=== PATIENT | male | born 1970 | race Caucasian/White ===

== ENCOUNTER → 2016-06-16 | Outpatient (CLI) | payer MEDICARE, OTHER | END | disposition home or self-care (01) | LOC: MW.CHPS 09:45 | PROVIDERS: ATTEND Plastic Surgery | DX: L89.893 Pressure ulcer of other site, stage 3 (principal); L97.429 Non-pressure chronic ulcer of left heel and midfoot with unspecified severity | CPT/HCPCS: 20526; G0463; J3301 ==

== ENCOUNTER 2016-07-22 06:43 | Day surgery (SDC) | payer MEDICARE, OTHER ==
[2016-07-22] MEDS ORDERED: Bupivacaine 0.25%/EPINEPHrine 1:200,000 10 ML SDV INJECT ONE (07:00)
[2016-07-22] MEDS ORDERED: Clindamycin Phosphate in D5W 600 MG in Premix Bag 1 BAG IV ONE ×2 (07:00)
[2016-07-22] MEDS ORDERED: Lactated Ringers 1,000 ML IV SCH (07:00)
[2016-07-22] MEDS ORDERED: Rocuronium 10 MG/ML 10 ML Syringe ONE (07:15)
[2016-07-22] MEDS ORDERED: Neostigmine Methylsulfate 1 MG/ML 5 ML Syringe ONE (07:15)
[2016-07-22] MEDS ORDERED: Propofol 200 MG/20 ML SDV ONE (07:15)
[2016-07-22] MEDS ORDERED: Lidocaine 2% 5 ML SDV ONE (07:15)
[2016-07-22] MEDS ORDERED: fentaNYL 250 MCG/5 ML SDV ONE (07:15)
[2016-07-22] MEDS ORDERED: Midazolam 1 MG/ML 2 ML SDV ONE (07:15)
[2016-07-22] MEDS ORDERED: Ondansetron 4 MG/2 ML SDV ONE (07:15)
[2016-07-22] MEDS ORDERED: Bupivacaine 0.25%/EPINEPHrine 1:200,000 10 ML SDV ONE (07:18)
[2016-07-22] MEDS ORDERED: Nitroglycerin/D5W 25 MG/250 ML BOTTLE ONE (07:24)
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
[2016-07-22] MEDS ORDERED: Acetaminophen/HYDROcodone 325-5 MG Tab PO PRN (08:00)
[2016-07-22] MEDS ORDERED: methylPREDNISolone Sodium Succinate 40 MG/1 ML SDV ONE (08:25)
[2016-07-22] MEDS ORDERED: Phenylephrine/Normal Saline 100 MCG/ML 10 ML Syringe ONE (08:25)
[2016-07-22] MEDS ORDERED: Hydrocortisone Sodium Succinate 100 MG/2 ML SDV ONE (08:27)
[2016-07-22] MEDS ORDERED: fentaNYL 100 MCG/2 ML SDV IVPUSH PRN (08:32)
[2016-07-22] MEDS ORDERED: Nitroglycerin/D5W 25 MG/250 ML BOTTLE IV SCH (08:45)
--- NOTE | 2016-07-22 10:36 | PCM.POSTAN ---
POST ANESTHESIA ASSESSMENT - MENTAL STATUS Mental Status: alert, oriented - VITAL SIGNS Pulse Rate: 83 SaO2: 94 Resp Rate: 10 Blood Pressure: 100/54 - RESPIRATORY Respiratory Status: respiratory rate WNL, airway patent, O2 saturation stable, supplemental oxygen (per nc) - CARDIOVASCULAR CV Status: pulse rate WNL, blood pressure stable - GASTROINTESTINAL GI Status: no symptoms - PAIN Pain Score: 0 - POST OP HYDRATION Hydration Status: adequate & stable - OBSERVATIONS Free Text/Narrative:: VSS. No elevation in BP. Pt has no complaints.
--- NOTE | 2016-07-22 11:25 | PCM48HPAN ---
Post Anesthesia Note - EVALUATION WITHIN 48HRS OF ANESTHETIC Vital Signs in Normal Range: Yes Patient Participated in Evaluation: Yes Respiratory Function Stable: Yes Airway Patent: Yes Cardiovascular Function Stable: Yes Hydration Status Stable: Yes Pain Control Satisfactory: Yes Nausea and Vomiting Control Satisfactory: Yes Mental Status Recovered: Yes - COMMENTS/OBSERVATIONS Free Text/Narrative:: Pt doing well. BP stable. Pt has no complaints.
[2016-07-22 11:57] VITALS: BP 106/58
--- NOTE | 2016-07-27 08:14 | PCM.OPNOTE ---
- General Post-Op/Procedure Note Date of Surgery/Procedure: 07/22/16 Operative Procedure(s): amputation of 3rd and 4th toes on the right for osteomyelitis, debridement of skin, subcutaneous tissue and bone of right lower leg - 15cm total length withpartial fibulectomy Pre Op Diagnosis: osteomyelitis of the right 3rd and 4th toes and distal fibula with open ulcers. Anesthesia Technique: General ET tube Primary Surgeon: Loretta Merrill [place] Lead: Abiola Conway Complications: None Condition: Good
--- NOTE | 2016-07-27 13:09 | OR ---
SURGEON: GARTH SALAS MD DATE OF PROCEDURE: 07/22/2016 PREOPERATIVE DIAGNOSIS: Right fibula, and third and fourth toe osteomyelitis. POSTOPERATIVE DIAGNOSIS: Right fibula, and 3rd and 4th toe osteomyelitis. PROCEDURE: 1. Amputation of right 3rd toe. 2. Amputation of right 4th toe. 3. Debridement of skin, subcutaneous tissue, and bone with partial fibulectomy of the right lower leg, 15 cm total length. INDICATIONS: Mr. Churchill is a 46-year-old gentleman, who unfortunately has been dealing with longstanding chronic wounds on his right lateral leg and now 3rd and 4th toes. He has developed a significant flare up of cellulitis and it was discussed that we would need an MRI. The MRI was somewhat obscured due to the lack of bone saturation windows being appropriately imaged; however, our radiologist was able to confirm, and there is likely osteomyelitis of the distal fibula and 3rd and 4th toes. This is very consistent with his clinical picture. We will take bone biopsies today, and risks and benefits of removal of the fibula and 3rd and 4th toes were discussed with him. We did recommend a [id number] amputation. However, the patient would like to keep as much of his normal structures as possible. He would like to proceed with the above-mentioned procedure. Risks and benefits were thoroughly discussed, and he was in agreement to proceed. PROCEDURE IN DETAIL: After informed consent was obtained and placed on the chart, the patient was brought to the operating theater and laid in the supine position. After adequate general anesthetic was obtained, the area was prepped and draped in normal fashion. Time-out was completed to confirm side and site. Attention was then paid to the lateral wounds. These were excised in elliptical fashion and a small extension was made in between to allow exposure of the fibula. The area under the ulcers was quite soft on the bone indicating involvement with osteomyelitis. A bone biopsy was taken and sent for pathology and microbiology. Once adequately sent, attention was then paid to copious irrigation and the fibula was exposed. A bone saw was used to transect the fibula proximal to the involved site, and the distal fibula was removed. The joint was repaired and closed to prevent leakage of joint fluid into the potential space. Once copiously irrigated, attention was then paid to closure of the skin using horizontal mattress sutures, sparse zion. Once this was closed, attention was then paid to the feet. Attention was paid to the right 3rd and 4th toe, and a fish mouth incision was made at the base of the phalanges and the bone was disarticulated at the metatarsal phalangeal joint. The cartilaginous cap was left in place over the metatarsal head in order to prevent seeding of the more proximal bone. This area was copiously irrigated. Meticulous hemostasis was obtained and traction neurectomies were performed. The skin was then closed with horizontal mattress stitches. The patient tolerated this well. The tourniquet was desufflated at the end the case. The wound was dressed with Xeroform, fluffs, and a Kerlix gauze dressing with a 4 inch Nacho wrap for compression. Significant care was taken during the case to prevent pressure on any pressure points for this patient. FOLLOWUP INSTRUCTIONS: The patient will see us in approximately 10 to 14 days or sooner if any problems, questions, or concerns. He will continue wound care as per usual on the left heel ulcer which is still present, but no signs of osteomyelitis underneath. We did not address this wound during our cares today. The patient also has excoriations on his right neck and these were also left intact and not disrupted today. The presence of both were clearly documented in the medical record prior to the patient coming back for surgery. MINO / GENESIS /[id number]
== END 2016-07-22 12:00 | disposition home or self-care (01) ==
LOC: MW.SDS 06:43
PROVIDERS: ATTEND Plastic Surgery
DX: L97.519 Non-pressure chronic ulcer of other part of right foot with unspecified severity (principal); M86.8X7 Other osteomyelitis, ankle and foot; I96 Gangrene, not elsewhere classified; I95.9 Hypotension, unspecified; F17.200 Nicotine dependence, unspecified, uncomplicated; Z88.8 Allergy status to other drugs, medicaments and biological substances; Z79.899 Other long term (current) drug therapy; Z93.3 Colostomy status
CPT/HCPCS: 11044; 28820; 87070; 87077; 87186; 88304; 88311; J1720; J2250; J2405; J3010; J7120; 01480; J2704; J2710; J2920

== ENCOUNTER → 2016-09-03 | Outpatient (CLI) | payer MEDICARE, OTHER | LOC: MW.CHPS 15:30 | PROVIDERS: ATTEND Plastic Surgery | DX: G56.03 Carpal tunnel syndrome, bilateral upper limbs (principal); L89.893 Pressure ulcer of other site, stage 3; M86.671 Other chronic osteomyelitis, right ankle and foot; L97.422 Non-pressure chronic ulcer of left heel and midfoot with fat layer exposed | CPT/HCPCS: 20526; J3301 ==

== ENCOUNTER 2016-09-22 20:50 | Inpatient (IN) | payer MEDICARE, OTHER ==
[2016-09-22] MEDS: Silver Sulfadiazine 1% Crm 50 GM Tube TOP SCH (22:00)
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
[2016-09-22] MEDS ORDERED: SUMAtriptan 50 MG Tab PO PRN (23:35)
[2016-09-22] MEDS ORDERED: SUMAtriptan 6 MG/0.5 ML SDV SUBCUT PRN (23:35)
[2016-09-22] MEDS ORDERED: Pantoprazole 40 MG Tab.CR PO PRN (23:35)
[2016-09-22] MEDS ORDERED: Fludrocortisone 0.1 MG Tab PO SCH (23:45)
[2016-09-23] MEDS: Gabapentin 300 MG Cap PO SCH ×5 (00:41→23:13)
[2016-09-23] MEDS: Methadone 10 MG Tab PO PRN ×2 (04:11→21:05)
[2016-09-23 05:05] LABS: CHLORIDE,CL 106 mmol/L (98-110); SODIUM,NA 142 mmol/L (136-146)
[2016-09-23] MEDS: Baclofen 10 MG Tab PO SCH ×3 (06:26→21:00)
[2016-09-23] MEDS: Oxybutynin 5 MG Tab PO SCH ×2 (08:57→20:57)
[2016-09-23] MEDS: DULoxetine 60 MG Cap PO SCH (08:57)
[2016-09-23] MEDS: Enoxaparin 40 MG/0.4 ML Syringe SUBCUT SCH (08:57)
[2016-09-23] MEDS: Methadone 10 MG Tab PO SCH ×3 (09:06→21:00)
[2016-09-23] MEDS: Silver Sulfadiazine 1% Crm 50 GM Tube TOP SCH ×2 (09:09→22:14)
[2016-09-23] MEDS ORDERED: Levofloxacin/Dextrose 5%-Water 750 MG in Premix Bag 1 BAG IV SCH (14:00)
--- NOTE | 2016-09-23 14:11 | MR ---
EXAMINATION: MRI of the right ankle with and without contrast HISTORY: Wound COMPARISON: No recent comparisons or radiographs. TECHNIQUE: Multiplanar and multisequence images obtained of the right ankle before and following the administration of 20 mL MultiHance. FINDINGS: There is a soft tissue defect noted along the lateral aspect of the ankle at the level of the talus. The distal fibula is surgically absent. The soft tissue defect demonstrates avid enhancem ent with likely an area of fluid tracking from the cutaneous surface to the tibiotalar joint. There is no evidence of intraosseous enhancement however there is synovial enhancement at the tibiotalar j oint and less so at the subtalar joint. The articular surfaces appear preserved. The Achilles tendon appears normal. The peroneus brevis and longus tendons appear intact. Remaining flexor and extensor tendons appear normal. There is no abnormal signal in the sinus tarsi. IMPRESSION: 1. Soft tissue defect along the lateral aspect of the ankle with likely a sinus tract extending to t he tibiotalar joint with underlying septic arthritis. 2. No definite evidence of osteomyelitis. 3. There is also mild enhancement of the subtalar synovium, this could be reactive however septic ar thritis is also not excluded. 4. Surgical absence of the distal fibula.
--- NOTE | 2016-09-23 14:11 | MR ---
EXAMINATION: MRI of the left foot with and without contrast HISTORY: Left heel ulcer COMPARISON: 07/14/2016 TECHNIQUE: Multiplanar and multisequence images obtained of the left foot before and following the a dministration of 20 mL MultiHance. FINDINGS: There is a large cutaneous ulcer involving the subcutaneous tissues overlying the calcaneu s which demonstrates moderate soft tissue enhancement. There is mild bone marrow enhancement within the adjacent calcaneus. There is also enhancement and edema within the anterior aspect of the talus, near the dome of the talus laterally, within the anterior process of the calcaneus, within several tarsal bones, and within the proximal metatarsals. There is enhancement throughout the plantar muscu lature. The tibiotalar and talofibular ligaments are not well characterized. Mild or subtle soft tis farzad edema is noted. IMPRESSION: 1. Large cutaneous ulcer overlying the calcaneus with adjacent cellulitis and likely underlying oste omyelitis within the posterior calcaneus. 2. There are multifocal scattered areas of bone marrow edema and enhancement throughout the left hin dfoot and midfoot. Osteomyelitis is not excluded. 3. Plantar fasciitis, infectious versus inflammatory.
--- NOTE | 2016-09-23 14:51 | US ---
ULTRASOUND EXAMINATION OF the left and right lower extremities WITH DOPPLER HISTORY: cool Extremities FINDINGS: Examination of the left and right legs were performed from the groin to the calf region. All visual ized segments including common femoral, proximal greater saphenous, superficial femoral, popliteal a nd calf veins appear patent with good compressibility and augmentation. There is no evidence of hawa p vein thrombosis. IMPRESSION: No evidence of a DVT bilaterally.
--- NOTE | 2016-09-23 15:57 | PCM.SN ---
- Free Text/Narrative Note: I was called about Geovanni and visited with him today. They are starting silvadene to the wounds. We discussed that much of our decision for care with revolve around the MRI results. Once these are back we will chat with him more about options. I do think it time to consider seriously BKA. We attempted to prevent this by debridement on the right and the wound did open up. Though it is healing in nicely, it continues to be a problem with dressing changes, etc. I would continue local wound cares and discuss the results. IV antibiotics should be started to get things under control and they are working on IV access. We will continue to follow and assist with decision making for him.
[2016-09-23] MEDS ORDERED: cefTRIAXone 2 GM in Premix Bag 1 BAG IV SCH (16:00)
--- NOTE | 2016-09-23 16:23 | PCM.PN ---
<Stanton Benavides - Last Filed: 09/23/16 16:24> - General Info Date of Service: 09/23/16 Admission Dx/Problem (Free Text): Left heel ulcer, wound to the lateral aspect of the right ankle. Subjective Update: patient is doing well this morning. He states that he has not been given his pain medication of methadone and would like to begin receiving this. He has no acute concerns this morning including chest pain, palpitations, shortness of breath, wheezing, cough, abdominal pain. Functional Status: Reports: pain controlled, tolerating diet, ambulating ( Patient is paraplegic.), urinating (Suprapubic catheter.) - Review of Systems General: Reports: No Symptoms HEENT: Reports: no symptoms Pulmonary: Reports: no symptoms Cardiovascular: Reports: No Symptoms Gastrointestinal: Reports: No symptoms Genitourinary: Reports: no symptoms Musculoskeletal: Reports: no symptoms Skin: Reports: no symptoms Neurological: Reports: No Symptoms Psychiatric: Reports: no symptoms - Patient Data Vitals - most recent: Last Vital Signs Temp 99.2 F 09/23/16 12:00 Pulse 62 09/23/16 12:00 Resp 18 09/23/16 12:00 BP 100/60 09/23/16 12:00 Pulse Ox 93 L 09/23/16 12:00 Weight - most recent: 104 kg I&O - last 24 hours: Intake & Output 09/23/16 09/23/16 09/23/16 06:59 14:59 22:59 Intake Total 100 150 Output Total 525 Balance -425 150 Lab Results last 24 hrs: Laboratory Results - last 24 hr 09/23/16 09/23/16 09/23/16 Range/Units 04:21 04:21 04:21 WBC 9.79 (4.0-11.0) K/uL RBC 4.17 L (4.50-5.90) M/uL Hgb 11.0 L (13.0-17.0) g/dL Hct 36.3 L (38.0-50.0) % MCV 87.1 (80.0-98.0) fL MCH 26.4 L (27.0-32.0) pg MCHC 30.3 L (31.0-37.0) g/dL RDW Std Deviation 50.8 (28.0-62.0) fl RDW Coeff of Emy 16 H (11.0-15.0) % Plt Count 292 (150-400) K/uL MPV 8.70 (7.40-12.00) fL Nucleated RBC % 0.0 /100WBC Nucleated RBCs # 0 K/uL INR 0.98 (0.86-1.11) APTT 29.9 (18.6-31.3) SEC Sodium 142 (136-146) mmol/L Potassium 4.3 (3.5-5.1) mmol/L Chloride 106 (98-110) mmol/L Carbon Dioxide 25 (21-31) mmol/L BUN 12 (6.0-23.0) mg/dL Creatinine 0.8 (0.6-1.5) mg/dL Est Cr Clr Drug Dosing 116.60 mL/min Estimated GFR (MDRD) > 60.0 ml/min Glucose 126 H (60-110) mg/dL Calcium 8.3 L (8.8-10.8) mg/dL Total Bilirubin 0.2 (0.1-1.5) mg/dL AST 17 (5-40) IU/L ALT 23 (8-54) IU/L Alkaline Phosphatase 110 (40-150) Total Protein 6.2 (6.0-8.0) g/dL Albumin 3.2 L (3.5-5.0) g/dL Globulin 3.0 (2.0-3.5) g/dL Albumin/Globulin Ratio 1.1 L (1.3-2.8) Med Orders - Current: Current Medications Amitriptyline HCl (Elavil) 150 mg PO BEDTIME [facility] Baclofen (Lioresal) 20 mg PO TID [facility] Last Admin: 09/23/16 13:38 Dose: 20 mg Duloxetine HCl (Cymbalta) 60 mg PO DAILY [facility] Last Admin: 09/23/16 08:57 Dose: 60 mg Enoxaparin Sodium (Lovenox) 40 mg SUBCUT DAILY [facility] Last Admin: 09/23/16 08:57 Dose: 40 mg Fludrocortisone Acetate (Florinef) 0.1 mg PO ASDIRECTED [facility] Gabapentin (Neurontin) 900 mg PO QID [facility] Last Admin: 09/23/16 13:38 Dose: 900 mg Ceftriaxone Sodium/Dextrose 2 (gm/ Premix) 50 mls @ 100 mls/hr IV Q24H [facility] Last Admin: 09/23/16 15:57 Dose: 100 mls/hr Vancomycin HCl 1,500 mg/ (Sodium Chloride) 500 mls @ 333.333 mls/hr IV Q8H [facility] Methadone HCl (Methadone) 10 mg PO TID PRN PRN Reason: Pain Last Admin: 09/23/16 04:11 Dose: 10 mg Methadone HCl (Methadone) 15 mg PO TID [facility] Last Admin: 09/23/16 13:39 Dose: 15 mg Oxybutynin Chloride (Oxybutynin) 5 mg PO BID [facility] Last Admin: 09/23/16 08:57 Dose: 5 mg Pantoprazole Sodium (Protonix) 40 mg PO DAILY PRN PRN Reason: Heartburn Silver Sulfadiazine (Silvadene 1% Cream 50 Gm) 0 gm TOP BID [facility] Last Admin: 09/23/16 09:09 Dose: 1 applic Sumatriptan Succinate (Imitrex) 100 mg PO Q2HR PRN PRN Reason: Headache/Pain Sumatriptan Succinate (Imitrex) 6 mg SUBCUT DAILY PRN PRN Reason: Acute Migraine Vancomycin HCl (Pharmacy To Dose - Vancomycin) 1 dose .XX ASDIRECTED [facility] Discontinued Medications Levofloxacin/Dextrose 750 mg/ (Premix) 150 mls @ 100 mls/hr IV Q24H [facility] Last Admin: 09/23/16 14:33 Dose: 100 mls/hr Vancomycin HCl 1,500 mg/ (Sodium Chloride) 500 mls @ 333.333 mls/hr IV Q8H [facility] Last Admin: 09/23/16 16:04 Dose: Not Given - Exam Quality Assessment: urine catheter (Suprapubic catheter), DVT prophylaxis (scd's , Lovenox), skin breakdown (Left heel, lateral aspect of right ankle.) General: alert, oriented, cooperative, no acute distress Lungs: Clear to auscultation, Normal respiratory effort Cardiovascular: Regular Rate, Regular Rhythm Abdomen: bowel sounds present, soft, no tenderness, no distension, other ( Colostomy bag present with no signs of infection.) (Male) Exam: Other (Suprapubic catheter in place with no signs of infection.) Extremities: other (Lower extremities bilaterally do have pressure reduction boots in place. Legs are wrapped with tensor bandages. I did not unwrap them today.) Peripheral Pulses: 2+: radial (L), radial (R) Skin: warm, dry, intact Wound/Incisions: dressing dry and intact, no drainage Neurological: no new focal deficit Psy/Mental Status: alert, normal affect, normal mood - Problem List & Annotations (1) Osteomyelitis of left foot SNOMED Code(s): 30097592 Code(s): M86.9 - OSTEOMYELITIS, UNSPECIFIED Status: Acute Current Visit: Yes (2) Cellulitis of foot SNOMED Code(s): 505258690 Code(s): L03.119 - CELLULITIS OF UNSPECIFIED PART OF LIMB Status: Acute Current Visit: No (3) Ulcer of foot SNOMED Code(s): 03064950 Code(s): L97.509 - NON-PRESSURE CHRONIC ULCER OTH PRT UNSP FOOT W UNSP SEVERITY Status: Chronic Priority: Medium Current Visit: No - Problem List Review Problem List Initiated/Reviewed/Updated: Yes - My Orders Last 24 Hours: My Active Orders 09/23/16 09:00 Methadone 15 mg PO TID 09/23/16 14:00 Vancomycin Pharmacy to Dose [Pharmacy to Dose - Vancomycin] 1 dose .XX ASDIRECTED 09/23/16 14:10 CULTURE WOUND [RM] Routine - Plan Plan:: 46-year-old male admitted with left foot ulcer and lateral right ankle wound status post right ankle surgery for osteomyelitis in July 2016. #1. Left heel ulcer/healing wound of lateral right ankle status post right ankle surgery for osteomyelitis in July 2016: -MRI of the left foot shows cellulitis of the left heel as well as a likely underlying osteomyelitis within the posterior calcaneus. There are multifocal scattered areas of bone marrow edema and enhancement throughout the left hindfoot and midfoot. Osteomyelitis cannot be excluded. Plantar fasciitis with infectious versus inflammatory pathogenesis. -MRI of the right ankle shows a sinus tract extending to the tibiotalar joint with underlying septic arthritis. No definitive evidence of osteomyelitis. There is also mild enhancement of the subpatellar synovium which could be reactive but septic arthritis is not excluded. -Patient has been started on vancomycin 1500 mg IV every 8 hours as well as Rocephin 2 g IV daily. -Dr. Loretta Merrill, plastic surgeon, has been consulted and has agreed to see the patient. She is familiar with the patient. There is a possibility of a below the knee amputation given the results of the MRI. We will follow her recommendations. -Wounds of the lower extremities are being dressed with Silvadene. -Patient is afebrile with normal respiratory rate and heart rate. White blood cell count is within normal limits. #2. Paraplegia: -All home medications have been resumed. -Patient receiving Lovenox 40 mg subcutaneously twice a day for DVT prophylaxis. <Crow Bryant O - Last Filed: 09/23/16 21:48> - Patient Data Vitals - most recent: Last Vital Signs Temp 36.2 C 09/23/16 20:00 Pulse 73 09/23/16 20:00 Resp 18 09/23/16 20:00 BP 120/58 L 09/23/16 20:00 Pulse Ox 96 09/23/16 20:00 I&O - last 24 hours: Intake & Output 09/23/16 09/23/16 09/23/16 06:59 14:59 22:59 Intake Total 100 1500 Output Total 525 800 Balance -425 700 Lab Results last 24 hrs: Laboratory Results - last 24 hr 09/23/16 09/23/16 09/23/16 Range/Units 04:21 04:21 04:21 WBC 9.79 (4.0-11.0) K/uL RBC 4.17 L (4.50-5.90) M/uL Hgb 11.0 L (13.0-17.0) g/dL Hct 36.3 L (38.0-50.0) % MCV 87.1 (80.0-98.0) fL MCH 26.4 L (27.0-32.0) pg MCHC 30.3 L (31.0-37.0) g/dL RDW Std Deviation 50.8 (28.0-62.0) fl RDW Coeff of Emy 16 H (11.0-15.0) % Plt Count 292 (150-400) K/uL MPV 8.70 (7.40-12.00) fL Nucleated RBC % 0.0 /100WBC Nucleated RBCs # 0 K/uL INR 0.98 (0.86-1.11) APTT 29.9 (18.6-31.3) SEC Sodium 142 (136-146) mmol/L Potassium 4.3 (3.5-5.1) mmol/L Chloride 106 (98-110) mmol/L Carbon Dioxide 25 (21-31) mmol/L BUN 12 (6.0-23.0) mg/dL Creatinine 0.8 (0.6-1.5) mg/dL Est Cr Clr Drug Dosing 116.60 mL/min Estimated GFR (MDRD) > 60.0 ml/min Glucose 126 H (60-110) mg/dL Calcium 8.3 L (8.8-10.8) mg/dL Total Bilirubin 0.2 (0.1-1.5) mg/dL AST 17 (5-40) IU/L ALT 23 (8-54) IU/L Alkaline Phosphatase 110 (40-150) Total Protein 6.2 (6.0-8.0) g/dL Albumin 3.2 L (3.5-5.0) g/dL Globulin 3.0 (2.0-3.5) g/dL Albumin/Globulin Ratio 1.1 L (1.3-2.8) Med Orders - Current: Current Medications Amitriptyline HCl (Elavil) 150 mg PO BEDTIME [facility] Last Admin: 09/23/16 20:57 Dose: 150 mg Baclofen (Lioresal) 20 mg PO TID [facility] Last Admin: 09/23/16 21:00 Dose: 20 mg Duloxetine HCl (Cymbalta) 60 mg PO DAILY [facility] Last Admin: 09/23/16 08:57 Dose: 60 mg Enoxaparin Sodium (Lovenox) 40 mg SUBCUT DAILY [facility] Last Admin: 09/23/16 08:57 Dose: 40 mg Fludrocortisone Acetate (Florinef) 0.1 mg PO ASDIRECTED [facility] Gabapentin (Neurontin) 900 mg PO QID [facility] Last Admin: 09/23/16 17:08 Dose: 900 mg Ceftriaxone Sodium/Dextrose 2 (gm/ Premix) 50 mls @ 100 mls/hr IV Q24H [facility] Last Admin: 09/23/16 15:57 Dose: 100 mls/hr Vancomycin HCl 1,500 mg/ (Sodium Chloride) 500 mls @ 333.333 mls/hr IV Q8H [facility] Last Admin: 09/23/16 17:02 Dose: 333.333 mls/hr Methadone HCl (Methadone) 10 mg PO TID PRN PRN Reason: Pain Last Admin: 09/23/16 21:05 Dose: 10 mg Methadone HCl (Methadone) 15 mg PO TID [facility] Last Admin: 09/23/16 21:00 Dose: 15 mg Oxybutynin Chloride (Oxybutynin) 5 mg PO BID [facility] Last Admin: 09/23/16 20:57 Dose: 5 mg Pantoprazole Sodium (Protonix) 40 mg PO DAILY PRN PRN Reason: Heartburn Silver Sulfadiazine (Silvadene 1% Cream 50 Gm) 0 gm TOP BID [facility] Last Admin: 09/23/16 09:09 Dose: 1 applic Sumatriptan Succinate (Imitrex) 100 mg PO Q2HR PRN PRN Reason: Headache/Pain Sumatriptan Succinate (Imitrex) 6 mg SUBCUT DAILY PRN PRN Reason: Acute Migraine Vancomycin HCl (Pharmacy To Dose - Vancomycin) 1 dose .XX ASDIRECTED [facility] Discontinued Medications Levofloxacin/Dextrose 750 mg/ (Premix) 150 mls @ 100 mls/hr IV Q24H [facility] Last Admin: 09/23/16 14:33 Dose: 100 mls/hr Vancomycin HCl 1,500 mg/ (Sodium Chloride) 500 mls @ 333.333 mls/hr IV Q8H [facility] Last Admin: 09/23/16 16:04 Dose: Not Given - My Orders Last 24 Hours: My Active Orders 09/22/16 21:45 Silver Sulfadiazine [Silvadene 1% Cream 50 GM] See Dose Instructions TOP BID 09/22/16 22:32 Air Mattress [Pressure Reduction Mattress] [OM.PC] Routine 09/22/16 22:33 Resuscitation Status Routine 09/22/16 22:43 Patient Status [ADT] Routine Oxygen Therapy [RC] PRN VTE/DVT Education [RC] PER UNIT ROUTINE Vital Signs [RC] Q4H 09/22/16 22:45 Consult to Physician [CONS] Routine 09/22/16 22:48 Notify Provider Consults [RC] ASDIRECTED 09/22/16 23:35 Methadone 10 mg PO TID PRN Pantoprazole [ProTONIX] 40 mg PO DAILY PRN SUMAtriptan [Imitrex] 100 mg PO Q2HR PRN SUMAtriptan [Imitrex] 6 mg SUBCUT DAILY PRN 09/22/16 23:45 Fludrocortisone [Florinef] 0.1 mg PO ASDIRECTED 09/23/16 00:00 Gabapentin [Neurontin] 900 mg PO QID 09/23/16 06:00 Baclofen [Lioresal] 20 mg PO TID 09/23/16 09:00 DULoxetine [Cymbalta] 60 mg PO DAILY Enoxaparin [Lovenox] 40 mg SUBCUT DAILY Oxybutynin 5 mg PO BID 09/23/16 16:00 cefTRIAXone [Rocephin in Dextrose,Iso-Osm 2 GM/50 ML] 2 gm Premix Bag 1 bag IV Q24H 09/23/16 17:00 Vancomycin 1,500 mg Sodium Chloride 0.9% [Normal Saline] 500 ml IV Q8H 09/23/16 21:00 Amitriptyline [Elavil] 150 mg PO BEDTIME 09/24/16 16:30 VANCOMYCIN TROUGH [CHEM] Routine - Plan Plan:: I was present with the resident during the history and exam. I discussed the case with the resident and agree with the findings and plan as documented in the resident's note.
[2016-09-23] MEDS ORDERED: Amitriptyline 25 MG Tab PO SCH (21:00)
[2016-09-24 05:07] LABS: CHLORIDE,CL 108 mmol/L (98-110); SODIUM,NA 141 mmol/L (136-146)
[2016-09-24] MEDS: Methadone 10 MG Tab PO SCH (05:51)
[2016-09-24] MEDS: Gabapentin 300 MG Cap PO SCH ×2 (05:52→10:59)
[2016-09-24] MEDS: Baclofen 10 MG Tab PO SCH (05:52)
[2016-09-24] MEDS: Silver Sulfadiazine 1% Crm 50 GM Tube TOP SCH (08:10)
[2016-09-24] MEDS: DULoxetine 60 MG Cap PO SCH (08:11)
[2016-09-24] MEDS: Oxybutynin 5 MG Tab PO SCH (08:11)
[2016-09-24] MEDS: Enoxaparin 40 MG/0.4 ML Syringe SUBCUT SCH (08:11)
[2016-09-24 09:15] VITALS: BP 126/56
[2016-09-24] MEDS ORDERED: Magnesium Hydroxide 400 MG/5 ML Susp 30 ML Cup PO ONE (10:01)
[2016-09-24] MEDS ORDERED: Magnesium Citrate Solution 296 ML Bottle PO ONE (10:02)
--- NOTE | 2016-09-24 10:23 | PCM.CONSN ---
- General Info Date of Service: 09/24/16 Admission Dx/Problem (Free Text): Left heel ulcer, wound to the lateral aspect of the right ankle s/p debridement of fibula for osteomyelitis. - Patient Data Vitals - most recent: Last Vital Signs Temp 97.9 F 09/24/16 08:00 Pulse 74 09/24/16 08:00 Resp 16 09/24/16 08:00 BP 126/56 L 09/24/16 08:00 Pulse Ox 94 L 09/24/16 08:00 Weight - most recent: 229 lb 4.492 oz I&O - last 24 hours: Intake & Output 09/23/16 09/24/16 09/24/16 23:59 07:59 15:59 Intake Total 1350 1300 Output Total 800 2550 Balance 550 -1250 Lab Results last 24 hrs: Laboratory Results - last 24 hr 09/24/16 09/24/16 09/24/16 Range/Units 04:20 04:20 04:20 WBC 7.47 (4.0-11.0) K/uL RBC 4.07 L (4.50-5.90) M/uL Hgb 10.9 L (13.0-17.0) g/dL Hct 35.6 L (38.0-50.0) % MCV 87.5 (80.0-98.0) fL MCH 26.8 L (27.0-32.0) pg MCHC 30.6 L (31.0-37.0) g/dL RDW Std Deviation 50.9 (28.0-62.0) fl RDW Coeff of Emy 16 H (11.0-15.0) % Plt Count 269 (150-400) K/uL MPV 8.70 (7.40-12.00) fL Neut % (Auto) 58.9 (48.0-80.0) % Lymph % (Auto) 28.2 (16.0-40.0) % [place] % (Auto) 8.2 (0.0-15.0) % Eos % (Auto) 4.6 (0.0-7.0) % Baso % (Auto) 0.1 (0.0-1.5) % Neut # (Auto) 4.4 (1.4-5.7) K/uL Lymph # (Auto) 2.1 (0.6-2.4) K/uL [place] # (Auto) 0.6 (0.0-0.8) K/uL Eos # (Auto) 0.3 (0.0-0.7) K/uL Baso # (Auto) 0.0 (0.0-0.1) K/uL Nucleated RBC % 0.0 /100WBC Nucleated RBCs # 0 K/uL Sodium 141 (136-146) mmol/L Potassium 4.6 (3.5-5.1) mmol/L Chloride 108 (98-110) mmol/L Carbon Dioxide 25 (21-31) mmol/L BUN 11 (6.0-23.0) mg/dL Creatinine 0.7 (0.6-1.5) mg/dL Est Cr Clr Drug Dosing 133.25 mL/min Estimated GFR (MDRD) > 60.0 ml/min Glucose 114 H (60-110) mg/dL Hemoglobin A1c 6.1 H (0.0-6.0) % Calcium 8.5 L (8.8-10.8) mg/dL Med Orders - Current: Current Medications Amitriptyline HCl (Elavil) 150 mg PO BEDTIME [facility] OF [facility] Last Admin: 09/23/16 20:57 Dose: 150 mg Baclofen (Lioresal) 20 mg PO TID [facility] Last Admin: 09/24/16 05:52 Dose: 20 mg Duloxetine HCl (Cymbalta) 60 mg PO DAILY [facility] Last Admin: 09/24/16 08:11 Dose: 60 mg Enoxaparin Sodium (Lovenox) 40 mg SUBCUT DAILY [facility] Last Admin: 09/24/16 08:11 Dose: 40 mg Fludrocortisone Acetate (Florinef) 0.1 mg PO ASDIRECTED ON LICENSE OF [facility] Gabapentin (Neurontin) 900 mg PO QID [facility] Last Admin: 09/24/16 05:52 Dose: 900 mg Ceftriaxone Sodium/Dextrose 2 (gm/ Premix) 50 mls @ 100 mls/hr IV Q24H [facility] Last Admin: 09/23/16 15:57 Dose: 100 mls/hr Vancomycin HCl 1,500 mg/ (Sodium Chloride) 500 mls @ 333.333 mls/hr IV Q8H [facility] Last Admin: 09/24/16 08:11 Dose: 333.333 mls/hr Methadone HCl (Methadone) 10 mg PO TID PRN PRN Reason: Pain Last Admin: 09/23/16 21:05 Dose: 10 mg Methadone HCl (Methadone) 15 mg PO TID [facility] Last Admin: 09/24/16 05:51 Dose: 15 mg Oxybutynin Chloride (Oxybutynin) 5 mg PO BID [facility] Last Admin: 09/24/16 08:11 Dose: 5 mg Pantoprazole Sodium (Protonix) 40 mg PO DAILY PRN PRN Reason: Heartburn Silver Sulfadiazine (Silvadene 1% Cream 50 Gm) 0 gm TOP BID [facility] Last Admin: 09/24/16 08:10 Dose: 1 applic Sumatriptan Succinate (Imitrex) 100 mg PO Q2HR PRN PRN Reason: Headache/Pain Sumatriptan Succinate (Imitrex) 6 mg SUBCUT DAILY PRN PRN Reason: Acute Migraine Vancomycin HCl (Pharmacy To Dose - Vancomycin) 1 dose .XX ASDIRECTED ON LICENSE OF [facility] Discontinued Medications Levofloxacin/Dextrose 750 mg/ (Premix) 150 mls @ 100 mls/hr IV Q24H [facility] Last Admin: 09/23/16 14:33 Dose: 100 mls/hr Vancomycin HCl 1,500 mg/ (Sodium Chloride) 500 mls @ 333.333 mls/hr IV Q8H [facility] Last Admin: 09/23/16 16:04 Dose: Not Given Magnesium Citrate (Citrate Of Magnesia) 195 ml PO ONETIME ONE Stop: 09/24/16 10:03 Magnesium Hydroxide (Milk Of Magnesia) 30 ml PO ONETIME ONE Stop: 09/24/16 10:02 Consult PN Assessment/Plan Procedures: Procedures AMPUTATION OF TOE (07/22/16) APPLICATION OF PASTE BOOT (07/08/16) ASSAY OF CK (CPK) (11/19/14) C-REACTIVE PROTEIN (01/08/16) CARPAL TUNNEL SURGERY (06/12/15) CHANGE OF BLADDER TUBE (02/18/15) CHEMODENERV TRUNK MUSC 1-5 (08/01/15) CHEST X-RAY 2VW FRONTAL&LATL (12/23/15) CLOSTRIDIUM AG IA (05/31/15) COLOSTOMY (07/02/15) COMPLETE CBC AUTOMATED (10/05/13) COMPLETE CBC W/AUTO DIFF WBC (01/08/16) COMPREHEN METABOLIC PANEL (11/19/14) CT ABD & PELV W/CONTRAST (11/19/14) CT HEAD/BRAIN W/O DYE (11/19/14) CULTURE AEROBIC IDENTIFY (07/22/16) CULTURE OTHR SPECIMN AEROBIC (07/22/16) BROOK BONE 20 SQ CM/< (07/22/16) DECALCIFY TISSUE (07/22/16) DRAIN BL W/CATH INSERTION (01/14/15) ELECTROCARDIOGRAM TRACING (08/21/14) EMERGENCY DEPT VISIT (11/19/14) HYDRATE IV INFUSION ADD-ON (01/14/15) INJECT TRIGGER POINTS 3/> (12/30/15) METABOLIC PANEL TOTAL CA (07/02/15) MICROBE SUSCEPTIBLE ALE (07/22/16) MRI JOINT LWR EXTR W/O&W/DYE (07/14/16) MRI LWR EXTREMITY W/O&W/DYE (07/14/16) NASAL ENDOSCOPY DX (08/01/15) NEG PRESS WOUND TX </=50 CM (05/21/16) OFFICE/OUTPATIENT VISIT EST (08/20/15) OFFICE/OUTPATIENT VISIT EST (08/21/14) OFFICE/OUTPATIENT VISIT EST (08/06/14) OFFICE/OUTPATIENT VISIT NEW (06/11/15) PROTHROMBIN TIME (08/21/14) PT EVALUATION (09/20/15) PT RE-EVALUATION (11/20/15) RBC SED RATE AUTOMATED (01/08/16) RMVL DEVITAL TIS 20 CM/< (06/22/16) ROUTINE VENIPUNCTURE (01/08/16) STOOL CULTR AEROBIC BACT EA (05/31/15) THER INJECTION CARP TUNNEL (06/16/16) THER/PROPH/DIAG INJ IV PUSH (11/19/14) THER/PROPH/DIAG INJ SC/IM (12/23/15) THER/PROPH/DIAG IV INF INIT (01/14/15) THROMBOPLASTIN TIME PARTIAL (08/21/14) TISSUE EXAM BY PATHOLOGIST (07/22/16) TISSUE EXAM BY PATHOLOGIST (07/04/14) TX/PRO/DX INJ NEW DRUG ADDON (11/19/14) URINALYSIS AUTO W/SCOPE (08/21/14) URINE BACTERIA CULTURE (08/21/14) WOUND(S) CARE NON-SELECTIVE (01/20/16) X-RAY EXAM OF HEEL (01/08/16)
--- NOTE | 2016-09-24 10:24 | PCM.SN ---
- Free Text/Narrative Note: We have a thorough discussion with the patient again about the likely need for amputation. He is still adamant to avoid this. Previously with the fibula osteo, we opted for removal of the affected bone and hopeful wound healing. He has also had toe amputations for gangrene and osteo here as well. During that care, we had a gerardo conversation about the need for amputation. He declined. The wound opened but has been healing in nicely. He has been on augmentin, which both the E coli and entero were sensitive too. Because we removed the osteomyelitis portions, we opted for oral antibiotics and he did well with this for 6 weeks. The left heel is now with an ulcer and it has become infected. Foul odor, with soft eschar. The MRI show osteomyelitis here. It shows fluid in the right ankle joint, but this is likely postoperative changes rather than actual infection given the timeframe and lack of infectious findings on this side. The fibular potion of the joint is no longer present. Radiology read as septic arthritis. We discussed frankly his situation and the amount of time he is spending dealing with these wounds. I do think he would be much more functional with amputations, at least on the left. He is considering this, but in the meantime, we will deal with the current infection. Cultures are pending and he will continue local wound cares. We will coordinate with the ID physician in [place] and ortho or vascular there for another opinion. My recommendation is still amputation. Discussed with Dr Clemente and they are coordinating outpatient follow up with PO antibiotics until that time. Continue wound cares.
--- NOTE | 2016-09-24 11:17 | PCM.DCSUM1 ---
<Stanton Benavides - Last Filed: 09/24/16 11:18> Discharge Summary - Hospital Course Free Text/Narrative:: Admission diagnoses: #1. Worsening ulcer of the left heel #2. Paraplegia Discharge diagnoses: #1 osteomyelitis of left calcaneus with overlying ulcer of left heel #2. Paraplegia 46-year-old paraplegic male was admitted with a worsening ulcer of the left heel. Patient recently underwent a right ankle surgery to remove part of his fibula secondary to osteomyelitis. MRI of the left foot showed likely osteomyelitis to the posterior aspect of the calcaneus and multifocal scattered areas of bone marrow edema and enhancement throughout the left hindfoot and midfoot with osteomyelitis not being excluded. Right ankle MRI shows a sinus tract extending to the tibiotalar joint with underlying septic arthritis. No evidence of osteomyelitis. Dr. Kady Merrill who performed the patient's right ankle surgery was consulted and did see the patient. She has recommended that the patient receive a below the knee amputation on the left side. The patient would like to get a second opinion and Dr. Merrill suggested that the patient be seen in either [place] or [place]. During admission, the patient was started on IV vancomycin and Rocephin. Wound culture was obtained and pending at the time of discharge. Previous wound and tissue cultures grew out Pseudomonas, staph aureus, enterococcus faecalis, Escherichia coli. The left heel ulcer was dressed with Silvadene daily. The patient was afebrile with other vital signs being stable. White blood cell count was normal. He was tolerating oral intake, voiding appropriately with no complaints of chest pain, palpitations, shortness of breath, wheezing, cough. There was a thought about having the patient get a PICC line as an outpatient with IV antibiotics initiated. I did speak with Dr. Crump, infectious disease , from [place], [place] who suggested that the patient be discharged on oral antibiotics and followup with him within one week secondary to the polymicrobial cultures that were obtained from previous tissue and wound samples. The patient also spoke on the phone with the [facility] from [place], [place] and they stated that they will be in touch with him within the next week or 2 to set up an appointment for further assessment of his lower extremity wounds. - Discharge Data Discharge Date: 09/24/16 Discharge Disposition: Home, Self-Care 01 Condition: Good - Discharge Diagnosis/Problem(s) (1) Osteomyelitis of left foot SNOMED Code(s): 46621729 ICD Code: M86.9 - OSTEOMYELITIS, UNSPECIFIED Status: Acute (2) Cellulitis of foot SNOMED Code(s): 110175415 ICD Code: L03.119 - CELLULITIS OF UNSPECIFIED PART OF LIMB Status: Acute (3) Ulcer of foot SNOMED Code(s): 00491414 ICD Code: L97.509 - NON-PRESSURE CHRONIC ULCER OTH PRT UNSP FOOT W UNSP SEVERITY Status: Chronic Priority: Medium - Patient Summary/Data Consults: Consultations 09/22/16 22:45 Consult to Physician [CONS] Routine - Patient Instructions Diet: Usual Diet as Tolerated Activity: As Tolerated Driving: May Drive Today Showering/Bathing: May Shower Notify Provider of: Fever, Increased Pain, Nausea and/or Vomiting - Discharge Plan Prescriptions/Med Rec: Levofloxacin [Levaquin] 750 mg PO DAILY #14 tablet Linezolid 600 mg PO BID #30 tablet Home Medications: Home Meds Baclofen 20 mg PO TID 09/06/13 [History] Multivitamin [Multi-Vitamin Daily] 1 tab PO DAILY 09/06/13 [History] SUMAtriptan Succinate [Imitrex] 100 mg PO Q2HR PRN 06/10/15 [History] SUMAtriptan Succinate [Sumatriptan Succinate] 6 mg SUBCUT DAILY PRN 06/10/15 [ History] Cranberry Extract/Vit C [Azo Cranberry Softgel] 2 each PO ASDIRECTED 07/02/15 [ History] DULoxetine [Cymbalta] 60 mg PO DAILY 07/02/15 [History] Gabapentin [Neurontin] 900 mg PO QID 07/02/15 [History] Oxybutynin 5 mg PO BID 07/02/15 [History] Fludrocortisone [Florinef] 0.1 mg PO ASDIRECTED 07/17/16 [History] Hydrocolloid Dressing [Duoderm CGF] 1 dressing TRDERM DAILY 07/17/16 [History] Varenicline Tartrate [Chantix] 1 tab PO BID 07/17/16 [History] Acetaminophen/HYDROcodone [[place] 325-5 MG] 1 tab PO Q4H PRN #30 tablet 07/22/16 [Rx] Amitriptyline HCl 150 mg PO BEDTIME 09/22/16 [History] Methadone HCl [Dolophine] 10 mg PO TID PRN 09/22/16 [History] Methadone HCl [Dolophine] 15 mg PO TID 09/22/16 [History] Pantoprazole Sodium 40 mg PO DAILY PRN 09/22/16 [History] Silver/Foam Bandage [Aquacel Ag Foam 5"X5" Dressing] 3 pad IDERM DAILY 09/22/16 [History] Levofloxacin [Levaquin] 750 mg PO DAILY #14 tablet 09/24/16 [Rx] Linezolid 600 mg PO BID #30 tablet 09/24/16 [Rx] Patient Handouts: Bone and Joint Infections, Adult, Linezolid tablets, Levofloxacin tablets Referrals: [facility] [Outside] Samir Cash MD [Primary Care Provider] - 10/07/16 10:00 am Devonte Crump MD [Ordering Only Provider] - 09/30/16 1:00 pm - Discharge Summary/Plan Comment DC Time >30 min.: No Discharge Summary/Plan Comment: Admission diagnoses: #1. Worsening ulcer of the left heel #2. Paraplegia Discharge diagnoses: #1 osteomyelitis of left calcaneus with overlying ulcer of left heel #2. Paraplegia 46-year-old paraplegic male was admitted with a worsening ulcer of the left heel. Patient recently underwent a right ankle surgery to remove part of his fibula secondary to osteomyelitis. MRI of the left foot showed likely osteomyelitis to the posterior aspect of the calcaneus and multifocal scattered areas of bone marrow edema and enhancement throughout the left hindfoot and midfoot with osteomyelitis not being excluded. Right ankle MRI shows a sinus tract extending to the tibiotalar joint with underlying septic arthritis. No evidence of osteomyelitis. Dr. Kady Merrill who performed the patient's right ankle surgery was consulted and did see the patient. She has recommended that the patient receive a below the knee amputation on the left side. The patient would like to get a second opinion and Dr. Merrill suggested that the patient be seen in either [place] or [place]. During admission, the patient was started on IV vancomycin and Rocephin. Wound culture was obtained and pending at the time of discharge. Previous wound and tissue cultures grew out Pseudomonas, staph aureus, enterococcus faecalis, Escherichia coli. The left heel ulcer was dressed with Silvadene daily. The patient was afebrile with other vital signs being stable. White blood cell count was normal. He was tolerating oral intake, voiding appropriately with no complaints of chest pain, palpitations, shortness of breath, wheezing, cough. There was a thought about having the patient get a PICC line as an outpatient with IV antibiotics initiated. I did speak with Dr. Crump, infectious disease , from [place], [place] who suggested that the patient be discharged on oral antibiotics and followup with him within one week secondary to the polymicrobial cultures that were obtained from previous tissue and wound samples. The patient also spoke on the phone with the [facility] [place] from [place], [place] and they stated that they will be in touch with him within the next week or 2 to set up an appointment for further assessment of his lower extremity wounds. Discharge plan: #1. Patient has an appointment with Dr. Crump, infectious disease, in [facility] on August 31, 2016. #2. Patient will follow up with his primary care provider, Dr. Cash as soon as possible. #3. Patient will be discharged home on linezolid to cover for enterococcus faecalis and also Levaquin to cover for Pseudomonas. Patient recently completed a six-week course of by mouth Augmentin and I believe that this was sufficient to cover the patient's Escherichia coli cultures. Dr. Crump can tailor the patient's antibiotics as he sees fit. #4. Patient has spoken with the [facility] and they have told him that they will contact him soon with an appointment within the next one to 2 weeks. I also spoke with a nurse from the [facility] and they told me that they will get him set up with an appointment within one to 2 weeks. #5. Patient encouraged to continue with daily dressing changes as he has been doing prior to admission. #6. All home medications were resumed. - Patient Data Vitals - Most Recent: Last Vital Signs Temp 97.9 F 09/24/16 08:00 Pulse 74 09/24/16 08:00 Resp 16 09/24/16 08:00 BP 126/56 L 09/24/16 08:00 Pulse Ox 94 L 09/24/16 08:00 Weight - Most Recent: 104 kg I&O - Last 24 hours: Intake & Output 09/23/16 09/24/16 09/24/16 22:59 06:59 14:59 Intake Total 1500 1300 500 Output Total 800 2550 Balance 700 -1250 500 Lab Results - Last 24 hrs: Laboratory Results - last 24 hr 09/24/16 09/24/16 09/24/16 Range/Units 04:20 04:20 04:20 WBC 7.47 (4.0-11.0) K/uL RBC 4.07 L (4.50-5.90) M/uL Hgb 10.9 L (13.0-17.0) g/dL Hct 35.6 L (38.0-50.0) % MCV 87.5 (80.0-98.0) fL MCH 26.8 L (27.0-32.0) pg MCHC 30.6 L (31.0-37.0) g/dL RDW Std Deviation 50.9 (28.0-62.0) fl RDW Coeff of Emy 16 H (11.0-15.0) % Plt Count 269 (150-400) K/uL MPV 8.70 (7.40-12.00) fL Neut % (Auto) 58.9 (48.0-80.0) % Lymph % (Auto) 28.2 (16.0-40.0) % [place] % (Auto) 8.2 (0.0-15.0) % Eos % (Auto) 4.6 (0.0-7.0) % Baso % (Auto) 0.1 (0.0-1.5) % Neut # (Auto) 4.4 (1.4-5.7) K/uL Lymph # (Auto) 2.1 (0.6-2.4) K/uL [place] # (Auto) 0.6 (0.0-0.8) K/uL Eos # (Auto) 0.3 (0.0-0.7) K/uL Baso # (Auto) 0.0 (0.0-0.1) K/uL Nucleated RBC % 0.0 /100WBC Nucleated RBCs # 0 K/uL Sodium 141 (136-146) mmol/L Potassium 4.6 (3.5-5.1) mmol/L Chloride 108 (98-110) mmol/L Carbon Dioxide 25 (21-31) mmol/L BUN 11 (6.0-23.0) mg/dL Creatinine 0.7 (0.6-1.5) mg/dL Est Cr Clr Drug Dosing 133.25 mL/min Estimated GFR (MDRD) > 60.0 ml/min Glucose 114 H (60-110) mg/dL Hemoglobin A1c 6.1 H (0.0-6.0) % Calcium 8.5 L (8.8-10.8) mg/dL Med Orders - Current: Current Medications Amitriptyline HCl (Elavil) 150 mg PO BEDTIME [facility] Last Admin: 09/23/16 20:57 Dose: 150 mg Baclofen (Lioresal) 20 mg PO TID [facility] Last Admin: 09/24/16 05:52 Dose: 20 mg Duloxetine HCl (Cymbalta) 60 mg PO DAILY [facility] Last Admin: 09/24/16 08:11 Dose: 60 mg Enoxaparin Sodium (Lovenox) 40 mg SUBCUT DAILY [facility] Last Admin: 09/24/16 08:11 Dose: 40 mg Fludrocortisone Acetate (Florinef) 0.1 mg PO ASDIRECTED [facility] Gabapentin (Neurontin) 900 mg PO QID [facility] Last Admin: 09/24/16 10:59 Dose: 900 mg Ceftriaxone Sodium/Dextrose 2 (gm/ Premix) 50 mls @ 100 mls/hr IV Q24H [facility] Last Admin: 09/23/16 15:57 Dose: 100 mls/hr Vancomycin HCl 1,500 mg/ (Sodium Chloride) 500 mls @ 333.333 mls/hr IV Q8H [facility] Last Admin: 09/24/16 08:11 Dose: 333.333 mls/hr Methadone HCl (Methadone) 10 mg PO TID PRN PRN Reason: Pain Last Admin: 09/23/16 21:05 Dose: 10 mg Methadone HCl (Methadone) 15 mg PO TID [facility] Last Admin: 09/24/16 05:51 Dose: 15 mg Oxybutynin Chloride (Oxybutynin) 5 mg PO BID [facility] Last Admin: 09/24/16 08:11 Dose: 5 mg Pantoprazole Sodium (Protonix) 40 mg PO DAILY PRN PRN Reason: Heartburn Silver Sulfadiazine (Silvadene 1% Cream 50 Gm) 0 gm TOP BID [facility] Last Admin: 09/24/16 08:10 Dose: 1 applic Sumatriptan Succinate (Imitrex) 100 mg PO Q2HR PRN PRN Reason: Headache/Pain Sumatriptan Succinate (Imitrex) 6 mg SUBCUT DAILY PRN PRN Reason: Acute Migraine Vancomycin HCl (Pharmacy To Dose - Vancomycin) 1 dose .XX ASDIRECTED [facility], [facility] Discontinued Medications Levofloxacin/Dextrose 750 mg/ (Premix) 150 mls @ 100 mls/hr IV Q24H [facility] Last Admin: 09/23/16 14:33 Dose: 100 mls/hr Vancomycin HCl 1,500 mg/ (Sodium Chloride) 500 mls @ 333.333 mls/hr IV Q8H [facility] Last Admin: 09/23/16 16:04 Dose: Not Given Magnesium Citrate (Citrate Of Magnesia) 195 ml PO ONETIME ONE Stop: 09/24/16 10:03 Last Admin: 09/24/16 10:57 Dose: 195 ml Magnesium Hydroxide (Milk Of Magnesia) 30 ml PO ONETIME ONE Stop: 09/24/16 10:02 Last Admin: 09/24/16 10:57 Dose: 30 ml *Q Meaningful Use (DIS) - VTE *Q VTE Criteria *Q: - Stroke *Q Stroke Criteria *Q: - AMI *Q AMI Criteria *Q: <Crow Bryant O - Last Filed: 09/24/16 15:06> Discharge Summary - Hospital Course Free Text/Narrative:: I was present with the resident during the history and exam. I discussed the case with the resident and agree with the findings and plan as documented in the resident's note - Patient Summary/Data Consults: Consultations 09/22/16 22:45 Consult to Physician [CONS] Routine - Patient Data Vitals - Most Recent: Last Vital Signs Temp 36.6 C 09/24/16 08:00 Pulse 74 09/24/16 08:00 Resp 16 09/24/16 08:00 BP 126/56 L 09/24/16 08:00 Pulse Ox 94 L 09/24/16 08:00 I&O - Last 24 hours: Intake & Output 09/24/16 09/24/16 09/24/16 06:59 14:59 22:59 Intake Total 1300 1420 Output Total 2550 580 Balance -1250 840 Lab Results - Last 24 hrs: Laboratory Results - last 24 hr 09/24/16 09/24/16 09/24/16 Range/Units 04:20 04:20 04:20 WBC 7.47 (4.0-11.0) K/uL RBC 4.07 L (4.50-5.90) M/uL Hgb 10.9 L (13.0-17.0) g/dL Hct 35.6 L (38.0-50.0) % MCV 87.5 (80.0-98.0) fL MCH 26.8 L (27.0-32.0) pg MCHC 30.6 L (31.0-37.0) g/dL RDW Std Deviation 50.9 (28.0-62.0) fl RDW Coeff of Emy 16 H (11.0-15.0) % Plt Count 269 (150-400) K/uL MPV 8.70 (7.40-12.00) fL Neut % (Auto) 58.9 (48.0-80.0) % Lymph % (Auto) 28.2 (16.0-40.0) % [place] % (Auto) 8.2 (0.0-15.0) % Eos % (Auto) 4.6 (0.0-7.0) % Baso % (Auto) 0.1 (0.0-1.5) % Neut # (Auto) 4.4 (1.4-5.7) K/uL Lymph # (Auto) 2.1 (0.6-2.4) K/uL [place] # (Auto) 0.6 (0.0-0.8) K/uL Eos # (Auto) 0.3 (0.0-0.7) K/uL Baso # (Auto) 0.0 (0.0-0.1) K/uL Nucleated RBC % 0.0 /100WBC Nucleated RBCs # 0 K/uL Sodium 141 (136-146) mmol/L Potassium 4.6 (3.5-5.1) mmol/L Chloride 108 (98-110) mmol/L Carbon Dioxide 25 (21-31) mmol/L BUN 11 (6.0-23.0) mg/dL Creatinine 0.7 (0.6-1.5) mg/dL Est Cr Clr Drug Dosing 133.25 mL/min Estimated GFR (MDRD) > 60.0 ml/min Glucose 114 H (60-110) mg/dL Hemoglobin A1c 6.1 H (0.0-6.0) % Calcium 8.5 L (8.8-10.8) mg/dL ALE Results - Last 24 hrs: Microbiology 09/23/16 14:10 Wound Culture - Preliminary Heel, Left Med Orders - Current: Current Medications Discontinued Medications Amitriptyline HCl (Elavil) 150 mg PO BEDTIME [facility] Last Admin: 09/23/16 20:57 Dose: 150 mg Baclofen (Lioresal) 20 mg PO TID [facility] Last Admin: 09/24/16 05:52 Dose: 20 mg Duloxetine HCl (Cymbalta) 60 mg PO DAILY [facility] Last Admin: 09/24/16 08:11 Dose: 60 mg Enoxaparin Sodium (Lovenox) 40 mg SUBCUT DAILY [facility] Last Admin: 09/24/16 08:11 Dose: 40 mg Fludrocortisone Acetate (Florinef) 0.1 mg PO ASDIRECTED [facility] Gabapentin (Neurontin) 900 mg PO QID [facility] Last Admin: 09/24/16 10:59 Dose: 900 mg Levofloxacin/Dextrose 750 mg/ (Premix) 150 mls @ 100 mls/hr IV Q24H [facility] Last Admin: 09/23/16 14:33 Dose: 100 mls/hr Vancomycin HCl 1,500 mg/ (Sodium Chloride) 500 mls @ 333.333 mls/hr IV Q8H [facility] Last Admin: 09/23/16 16:04 Dose: Not Given Ceftriaxone Sodium/Dextrose 2 (gm/ Premix) 50 mls @ 100 mls/hr IV Q24H [facility] Last Admin: 09/23/16 15:57 Dose: 100 mls/hr Vancomycin HCl 1,500 mg/ (Sodium Chloride) 500 mls @ 333.333 mls/hr IV Q8H [facility] Last Admin: 09/24/16 08:11 Dose: 333.333 mls/hr Magnesium Citrate (Citrate Of Magnesia) 195 ml PO ONETIME ONE Stop: 09/24/16 10:03 Last Admin: 09/24/16 10:57 Dose: 195 ml Magnesium Hydroxide (Milk Of Magnesia) 30 ml PO ONETIME ONE Stop: 09/24/16 10:02 Last Admin: 09/24/16 10:57 Dose: 30 ml Methadone HCl (Methadone) 10 mg PO TID PRN PRN Reason: Pain Last Admin: 09/23/16 21:05 Dose: 10 mg Methadone HCl (Methadone) 15 mg PO TID [facility] Last Admin: 09/24/16 05:51 Dose: 15 mg Oxybutynin Chloride (Oxybutynin) 5 mg PO BID [facility] Last Admin: 09/24/16 08:11 Dose: 5 mg Pantoprazole Sodium (Protonix) 40 mg PO DAILY PRN PRN Reason: Heartburn Silver Sulfadiazine (Silvadene 1% Cream 50 Gm) 0 gm TOP BID [facility] Last Admin: 09/24/16 08:10 Dose: 1 applic Sumatriptan Succinate (Imitrex) 100 mg PO Q2HR PRN PRN Reason: Headache/Pain Sumatriptan Succinate (Imitrex) 6 mg SUBCUT DAILY PRN PRN Reason: Acute Migraine Vancomycin HCl (Pharmacy To Dose - Vancomycin) 1 dose .XX ASDIRECTED [facility], [facility] *Q Meaningful Use (DIS) - VTE *Q VTE Criteria *Q: - Stroke *Q Stroke Criteria *Q: - AMI *Q AMI Criteria *Q:
== END 2016-09-24 12:22 | disposition home or self-care (01) | DRG 540 ==
LOC: MW.MS 20:50
PROVIDERS: ADMIT Internal Medicine; ATTEND Internal Medicine
DX: M86.8X7 Other osteomyelitis, ankle and foot (principal); L97.429 Non-pressure chronic ulcer of left heel and midfoot with unspecified severity; G82.20 Paraplegia, unspecified; L03.116 Cellulitis of left lower limb; N31.9 Neuromuscular dysfunction of bladder, unspecified; F41.8 Other specified anxiety disorders; F17.200 Nicotine dependence, unspecified, uncomplicated; Z88.8 Allergy status to other drugs, medicaments and biological substances; Z79.899 Other long term (current) drug therapy; Z86.718 Personal history of other venous thrombosis and embolism
CPT/HCPCS: 36415; 73720-26-LT; 73720-LT; 73723-26-RT; 73723-RT; 80048; 80053; 83036; 85025; 85027; 85610; 85730; 87070; 87077; 87186; 93970; 93970-26; A9270-GY; J0696; J1650; J1956; J3370; J7040

== ENCOUNTER → 2016-09-22 | Outpatient (CLI) | payer MEDICARE, OTHER | LOC: MW.CHFP 08:00 | PROVIDERS: ATTEND Emergency Medicine | DX: L98.499 Non-pressure chronic ulcer of skin of other sites with unspecified severity (principal); L08.9 Local infection of the skin and subcutaneous tissue, unspecified; L89.893 Pressure ulcer of other site, stage 3; G82.20 Paraplegia, unspecified | CPT/HCPCS: G0463 ==

== ENCOUNTER 2017-02-03 08:42 | Day surgery (SDC) | payer MEDICARE, OTHER ==
[~2017-02-03 08:42] MED LIST: Midazolam 1 MG/ML 2 ML SDV ONE; Ondansetron 4 MG/2 ML SDV ONE; Propofol 200 MG/20 ML SDV ONE; Rocuronium 10 MG/ML 10 ML Syringe ONE; fentaNYL 100 MCG/2 ML SDV ONE
[2017-02-03] MEDS ORDERED: Acetaminophen/HYDROcodone 325-5 MG Tab PO PRN (09:00)
[2017-02-03] MEDS ORDERED: Ondansetron 4 MG Tab.DIS PO PRN (09:00)
[2017-02-03] MEDS ORDERED: Bupivacaine 0.25%/EPINEPHrine 1:200,000 10 ML SDV INJECT ONE (09:00)
[2017-02-03] MEDS: Lactated Ringers 1,000 ML IV SCH (09:20)
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
[2017-02-03] MEDS ORDERED: Acetaminophen 1,000 MG in Premix Bag 1 BAG IV ONE (09:41)
[2017-02-03] MEDS ORDERED: Clindamycin Phosphate in D5W 600 MG in Premix Bag 1 BAG IV ONE ×2 (10:00)
[2017-02-03] MEDS ORDERED: fentaNYL 100 MCG/2 ML SDV IVPUSH PRN (10:44)
[2017-02-03] MEDS ORDERED: fentaNYL 100 MCG/2 ML SDV ONE (12:02)
[2017-02-03] MEDS ORDERED: Phenylephrine/Normal Saline 100 MCG/ML 10 ML Syringe ONE (12:22)
[2017-02-03] MEDS ORDERED: Neostigmine Methylsulfate 1 MG/ML 5 ML Syringe ONE (13:32)
[2017-02-03] MEDS ORDERED: Ibuprofen 600 MG Tab PO PRN (14:00)
[2017-02-03] MEDS ORDERED: Acetaminophen 325 MG Tab PO PRN (14:00)
[2017-02-03] MEDS ORDERED: oxyCODONE 5 MG Tab PO PRN (14:00)
--- NOTE | 2017-02-03 15:05 | PCM.POSTAN ---
POST ANESTHESIA ASSESSMENT - MENTAL STATUS Mental Status: Alert, Oriented - RESPIRATORY Respiratory Status: Respiratory Rate WNL, Airway Patent, O2 Saturation Stable - CARDIOVASCULAR CV Status: Pulse Rate WNL, Blood Pressure Stable - GASTROINTESTINAL GI Status: No Symptoms - POST OP HYDRATION Hydration Status: Adequate & Stable
--- NOTE | 2017-02-03 15:09 | PCM.OPNOTE ---
- General Post-Op/Procedure Note Date of Surgery/Procedure: 02/03/17 Operative Procedure(s): left below knee amputation Pre Op Diagnosis: left foot osteomyelitis Post-Op Diagnosis: Same Anesthesia Technique: General ET Tube, Local Primary Surgeon: Loretta Merrill Mortgage Loan Originator: Abiola Conway Complications: None Condition: Good
[2017-02-03] MEDS ORDERED: Pantoprazole 40 MG Tab.CR PO PRN (18:53)
[2017-02-03] MEDS ORDERED: Fludrocortisone 0.1 MG Tab PO SCH (19:00)
[2017-02-03] MEDS ORDERED: SUMAtriptan 6 MG/0.5 ML SDV SUBCUT PRN (19:15)
[2017-02-03] MEDS ORDERED: SUMAtriptan 50 MG Tab PO PRN (19:15)
[2017-02-03] MEDS: Oxybutynin 5 MG Tab PO SCH (21:26)
[2017-02-03] MEDS: Methadone 10 MG Tab PO SCH (21:27)
[2017-02-03] MEDS: Baclofen 10 MG Tab PO SCH (21:27)
[2017-02-03] MEDS: Linezolid 600 MG Tab PO SCH (21:35)
[2017-02-04] MEDS: Gabapentin 300 MG Cap PO SCH ×3 (00:57→12:34)
[2017-02-04] MEDS: Lactated Ringers 1,000 ML IV SCH ×2 (01:01→09:25)
[2017-02-04] MEDS: Baclofen 10 MG Tab PO SCH ×2 (07:33→13:35)
[2017-02-04] MEDS: Methadone 10 MG Tab PO SCH ×2 (07:33→13:35)
[2017-02-04] MEDS: Oxybutynin 5 MG Tab PO SCH (08:51)
[2017-02-04] MEDS: Linezolid 600 MG Tab PO SCH (08:52)
[2017-02-04] MEDS ORDERED: DULoxetine 60 MG Cap PO SCH (09:00)
[2017-02-04] MEDS ORDERED: Levofloxacin 250 MG Tab PO SCH (09:00)
--- NOTE | 2017-02-04 09:28 | PCM48HPAN ---
Post Anesthesia Note - EVALUATION WITHIN 48HRS OF ANESTHETIC Vital Signs in Normal Range: Yes Patient Participated in Evaluation: Yes Respiratory Function Stable: Yes Airway Patent: Yes Cardiovascular Function Stable: Yes Hydration Status Stable: Yes Pain Control Satisfactory: Yes Nausea and Vomiting Control Satisfactory: Yes Mental Status Recovered: Yes
--- NOTE | 2017-02-04 12:52 | PCM.SN ---
- Free Text/Narrative Note: Doing well post op day 1 and healing well. No signs of infection or skin compromise. We discussed options and he would like to go home today. Given his situation and support, I do think this is reasonable. On exam, he is healing well and there are no signs of infection or compromise. Skin incision reapproximated well and minimal swelling. Drain removed. Continue antibiotics, daily dressings, washing well and pain medication if needed. Follow up in clinic 1pm.
[2017-02-04 13:41] VITALS: BP 100/37
--- NOTE | 2017-02-04 15:07 | OR ---
SURGEON: GARTH SALAS MD DATE OF PROCEDURE: 02/03/2017 PREOPERATIVE DIAGNOSIS: Left foot osteomyelitis. POSTOPERATIVE DIAGNOSIS: Left foot osteomyelitis. PROCEDURE: Below-knee amputation on the left. POWER PLANT SUPERINTENDENT: AYANNA Aaron. ANESTHESIA: General ET tube with local. INDICATIONS: Mr. Churchill is a 46-year-old quadriplegic gentleman with severe osteomyelitis of the left foot and heel area. We discussed options, risks, and benefits of my recommendations of [id number] amputation. Risks and benefits of this were discussed with him and he was in agreement to proceed. Risks were including, but not limited to, bleeding, infection, damage to underlying or overlying structures, possible need for future interventions, possible scarring. PROCEDURE IN DETAIL: After informed consent was obtained and placed on the chart, the patient was brought to the operating theater and laid in supine position. After adequate general anesthetic was obtained, the area was prepped and draped with Betadine cleansing solution and a tourniquet was placed over the left lower and upper leg. The leg was elevated and time-out was completed to confirm side and site. Attention was then paid to inflation of the tourniquet to 250 mmHg. Once this was completed, the leg was laid back down into the supine position and attention was paid to the fishmouth incision with a planned bone length slightly over 10 cm distal to the tibia tubercle. Once this was marked, this anterior skin flap and posterior skin flap was injected with 0.25% Marcaine with epinephrine for a field block to decrease sympathetic response or any hyperreflexia or autonomic response. Once adequately anesthetized, a 10 blade was used to dissect through the skin in a fishmouth pattern with a posterior flap being longer and dissection was carried down through the musculature isolating the anterior tibial neurovascular bundle. The vessel was tied using a 3-0 Vicryl suture and the nerve was placed on traction neurectomy. This retracted back nicely into the surrounding musculature. Attention was then paid to isolation of the tibia and fibula. Once this was completed, the peroneal artery and nerve were located and again tied off to the vessel and traction neurectomy for the nerve. Once this was completed, the bone saw was used to dissect the tibia with a 45-degree angle anteriorly to prevent undue compression on the skin. Once the tibia was transected and curved appropriately for smooth edges, attention was then paid to the fibula which was dissected and transected approximately 5 cm proximal to the tibia. Once this was completed, the remainder of the posterior dissection was undertaken and the posterior tibial nerve and artery were located. The artery was tied off again with silk and a small bleeding vessel was clamped using a 20- 20 at the area between the proximal tibia and fibula. Once this was completed, the nerve was placed under traction neurectomy and again was allowed to retract. The nerves were quite friable. Once this was completed, meticulous hemostasis was obtained and the muscle and subcutaneous tissues were trimmed appropriately to allow a tension-free closure. A sural nerve was also located and again transected and allowed to retract into the space between the muscle belly. Any other superficial cutaneous nerves were treated appropriately and meticulous hemostasis was obtained. Once adequate hemostasis was obtained, the wound was then closed using deep 3-0 Vicryl stitches for muscle reapproximation over the bone and deep fascial stitches. Once the fascia was reapproximated, 3-0 Monocryl was used for deep dermal stitches and a 3-0 Prolene in a horizontal mattress fashion for the skin. The wound was dressed with Xeroform, fluffs, and a 1.25 inch Foxworth drain was placed in the wound laterally. The dressings were then dressed with a Kerlix and an Nacho wrap. The patient tolerated this well. All counts and needles were correct at the end of the case. FOLLOWUP INSTRUCTIONS: The patient will be maintained in the hospital for pain control for two days. He will call with any questions or concerns. We will continue close observation of the wound. MINO HURTADO /[id number] TYE
== END 2017-02-04 08:42 | disposition home or self-care (01) ==
LOC: MW.MS 08:42 → MW.SDS 08:42 → INTOOBSV 08:42 → UNDOADMOB 08:42 → EDSTATUS 10:00 → MW.SDS 10:00 → MW.MS 11:48 → MW.SDS 02-04 08:42 → UNDODISOB 02-04 15:30
PROVIDERS: ATTEND Plastic Surgery
DX: M86.8X7 Other osteomyelitis, ankle and foot (principal); F41.8 Other specified anxiety disorders; K21.9 Gastro-esophageal reflux disease without esophagitis; Z93.3 Colostomy status; Z88.8 Allergy status to other drugs, medicaments and biological substances; Z79.899 Other long term (current) drug therapy; Z98.890 Other specified postprocedural states; F17.210 Nicotine dependence, cigarettes, uncomplicated
CPT/HCPCS: 27880; 88307; 88311; A9270; J2250; J2405; J3010; J7120; 01482; J2704

== ENCOUNTER 2018-02-09 11:26 | Emergency (ER) | payer MEDICARE, OTHER ==
[2018-02-09 11:54] VITALS: BP 137/74
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
--- NOTE | 2018-02-09 12:33 | CR ---
EXAMINATION: Left hand HISTORY: Pain COMPARISON: None TECHNIQUE: 2 views FINDINGS/IMPRESSION: There is no acute osseous abnormality, dislocation, or fracture. Mild osteophyte s and osteoarthritic changes noted within the interphalangeal joints. No focal soft tissue swelling o r foreign body.
== END 2018-02-09 13:15 | disposition home or self-care (01) ==
LOC: MW.ED 11:26
DX: M67.98 Unspecified disorder of synovium and tendon, other site (principal); E66.9 Obesity, unspecified; F17.210 Nicotine dependence, cigarettes, uncomplicated; Z88.5 Allergy status to narcotic agent; Z79.899 Other long term (current) drug therapy
CPT/HCPCS: 73120-26-LT; 73120-LT; 99283

== ENCOUNTER 2018-10-11 11:27 | Day surgery (SDC) | payer MEDICARE, OTHER ==
[~2018-10-11 11:27] MED LIST changes: +Lactated Ringers 1,000 ML IV SCH; -Midazolam 1 MG/ML 2 ML SDV ONE; -Ondansetron 4 MG/2 ML SDV ONE; -Propofol 200 MG/20 ML SDV ONE; -Rocuronium 10 MG/ML 10 ML Syringe ONE; +Sodium Chloride 0.9% 10 ML SDV IV PRN; +Sodium Chloride 0.9% 10 ML Syringe FLUSH PRN; +Sodium Chloride 0.9% 2.5 ML Syringe FLUSH PRN; -fentaNYL 100 MCG/2 ML SDV ONE
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
[2018-10-11] MEDS ORDERED: Propofol 200 MG/20 ML SDV ONE ×2 (14:05→14:23)
[2018-10-11] MEDS ORDERED: Phenylephrine 1% 10 MG/ML SDV ONE (14:08)
[2018-10-11] MEDS ORDERED: Midazolam 1 MG/ML 2 ML SDV ONE (14:25)
--- NOTE | 2018-10-11 15:13 | PCM.POSTAN ---
POST ANESTHESIA ASSESSMENT - MENTAL STATUS Mental Status: Alert, Oriented - VITAL SIGNS Pulse Rate: 47 SaO2: 96 Resp Rate: 13 Blood Pressure: 89/44 Temperature: 36.7 C - RESPIRATORY Respiratory Status: Respiratory Rate WNL, Airway Patent, O2 Saturation Stable - CARDIOVASCULAR CV Status: Pulse Rate WNL, Blood Pressure Stable - GASTROINTESTINAL GI Status: No Symptoms - POST OP HYDRATION Hydration Status: Adequate & Stable - OBSERVATIONS Free Text/Narrative:: No anesthesia complications noted at this time. Pt comfortable. No complaints.
[2018-10-11 15:32] VITALS: BP 89/44
--- NOTE | 2018-10-11 15:32 | PCM48HPAN ---
Post Anesthesia Note - EVALUATION WITHIN 48HRS OF ANESTHETIC Vital Signs in Normal Range: Yes Patient Participated in Evaluation: Yes Respiratory Function Stable: Yes Airway Patent: Yes Cardiovascular Function Stable: Yes Hydration Status Stable: Yes Pain Control Satisfactory: Yes Nausea and Vomiting Control Satisfactory: Yes Mental Status Recovered: Yes Pulse Rate: 47 Resp Rate: 18 Temperature: 98.1 F Blood Pressure: 89/44
--- NOTE | 2018-10-11 20:39 | OR ---
SURGEON: SHAYLEE LOPEZ MD DATE OF PROCEDURE: 10/11/2018 PREOPERATIVE DIAGNOSIS: Chronic constipation. POSTOPERATIVE DIAGNOSIS: Chronic constipation. PROCEDURE PERFORMED: Diagnostic colonoscopy. PRIMARY SURGEON: Endoscopist, Shaylee Lopez MD. ANESTHESIA: MAC. INSTRUMENT USED: Olympus colonoscope. EXTENT OF EXAM: To the cecum, to the sigmoid pouch. PREPARATION: Fair. LIMITATIONS: None. INDICATIONS: The patient is a 48-year-old male who is a paraplegic. He suffers from chronic constipation. He was given an end-sigmoidostomy for better bowel cares. Despite this, he has had progressively worsening issues with constipation over the years. He has never had a colonoscopy. The patient and I discussed the need for a diagnostic scope. I explained the procedure, expected perioperative course, and risks including bleeding, infection, or damage to surrounding structures including perforation. I would scope both from the rectum to the end of his sigmoid staple line as well as scope through the stoma to the cecum. He verbalized understanding and wishes to proceed. PROCEDURE IN DETAIL: The patient was brought into the endoscopy suite and placed on the OR cart in supine position. A time-out was completed verifying the patient's name, age, date of , allergies, and procedure to be performed. Monitored anesthesia care was induced and continuous oxygen was provided via nasal cannula throughout the procedure. Once adequate sedation was achieved, I digitally palpated through the stoma, which was normal. I then performed a digital rectal exam, which was normal as well. A well-lubricated colonoscope was inserted through the stoma and advanced carefully under direct visualization to the level of cecum. The cecum was identified by both visual and anatomic landmarks. A photograph was taken of the cecal cap. The scope was then fully withdrawn while examining the color, texture, anatomy, and integrity of the mucosa from the cecum to the end of the stoma. The colonic mucosa appeared normal. The patient did have some liquid stool in the colon. With irrigation, I was able to adequately clear this and good visualization of the mucosa itself. The scope was removed and this portion of the procedure was terminated. I turned my attention then to the anus. A well-lubricated colonoscope was then inserted into the rectum, and I immediately encountered several small stool balls. I was able to navigate past these to approximately 10-15 cm up the distal colon. Upon reaching this level, however, there were several other balls of stool, and I was unable to safely pass by these despite irrigation. The mucosa itself appeared grossly normal with no evidence of gross masses or inflammation. The scope was removed and the procedure terminated. The patient tolerated the procedure well and was transferred to the PACU in stable condition. ENDOSCOPIC DIAGNOSIS: Normal colonoscopy with chronic constipation. RECOMMENDATIONS: We will refer patient on to a colorectal surgeon for further surgical options in management of his chronic constipation and possible neurogenic bowel. RUDY HURTADO /[id number]
== END 2018-10-11 15:40 | disposition home or self-care (01) ==
LOC: MW.SDS 11:27
PROVIDERS: ATTEND Surgery
DX: K59.09 Other constipation (principal); K21.9 Gastro-esophageal reflux disease without esophagitis; I10 Essential (primary) hypertension; F41.9 Anxiety disorder, unspecified; F32.9 Major depressive disorder, single episode, unspecified; F17.210 Nicotine dependence, cigarettes, uncomplicated; G47.33 Obstructive sleep apnea (adult) (pediatric); G82.20 Paraplegia, unspecified; Z88.5 Allergy status to narcotic agent; Z93.3 Colostomy status; Z79.82 Long term (current) use of aspirin; Z79.899 Other long term (current) drug therapy; K59.2 Neurogenic bowel, not elsewhere classified
CPT/HCPCS: 44388; 45330; J2250; J2370; J2704; J7120; 00811

== ENCOUNTER 2019-04-10 17:08 | Inpatient (IN) | payer MEDICARE, OTHER ==
[2019-04-10] MEDS ORDERED: Albuterol/Ipratropium 3.0-0.5 MG/3 ML Neb Soln NEB ONE (17:16)
[2019-04-10] MEDS ORDERED: Sodium Chloride 0.9% 10 ML Syringe FLUSH PRN (17:16)
[2019-04-10] MEDS ORDERED: Sodium Chloride 0.9% 2.5 ML Syringe FLUSH PRN (17:16)
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
[2019-04-10] MEDS: Sodium Chloride 0.9% 1,000 ML IV SCH (17:34)
--- NOTE | 2019-04-10 18:22 | CR ---
Indication: Shortness of breath. Fall. Technique: Single AP portable view of the chest was obtained. Comparison: June 02, 2018. Findings: Deformity of the left chest wall is identified, stable. The heart is normal in size. The lungs are clear. No infiltrate, pleural effusion, or pneumothorax is identified. Impression: No acute cardiopulmonary process. Dictated by Kathie Aldridge MD @ Apr 10 2019 6:20PM Signed by Dr. Kathie Aldridge @ Apr 10 2019 6:20PM
[2019-04-10 19:26] LABS: BLOOD UREA NITROGEN,BUN 12 mg/dL (7.0-18.0); CARBON DIOXIDE,CO2 28.7 mmol/L (21.0-32.0); CHLORIDE,CL 103 mmol/L (98-107); GLUCOSE RANDOM 84 mg/dL (74-106); POTASSIUM,K 4.1 mmol/L (3.5-5.1); SODIUM,NA 140 mmol/L (136-148)
[2019-04-10] MEDS ORDERED: cefTRIAXone 1 GM in Premix Bag 1 BAG IV ONE (19:33)
[2019-04-10] MEDS ORDERED: Piperacillin/Tazobactam 4.5 GM in Sodium Chloride 0.9% 100 ML IV ONE (19:36)
[2019-04-10] MEDS ORDERED: Azithromycin 500 MG in Sodium Chloride 0.9% 250 ML IV SCH (19:45)
--- NOTE | 2019-04-10 21:27 | CT ---
INDICATION: Shortness of breath, fall, history of DVT and PE TECHNIQUE: CT chest pulmonary angiogram acquired with IV contrast. 80 cc Isovue 370 COMPARISON: None FINDINGS: Cardiovascular structures: Normal vascular enhancement of the pulmonary arteries, no sign of pulmonary embolism. Heart size is normal. No sign of aneurysm or dissection in the thoracic aorta. Mediastinum and marvin: No mass or adenopathy. Lungs: Bibasilar atelectasis. Pleura and pericardium: No effusions. Chest wall and axilla: No mass or adenopathy. Bones: No significant findings. Upper abdomen: Unremarkable. IMPRESSION: No evidence for pulmonary embolus or pneumonia. Bibasilar atelectasis. Dictated by Miky Ramos MD @ 04/10/2019 9:25:28 PM Please note that all CT scans at this facility use dose modulation, iterative reconstruction, and/or weight-based dosing when appropriate to reduce radiation dose to as low as reasonably achievable. Dictated by: Miky Ramos MD @ 04/10/2019 21:25:34 (Electronically Signed)
[2019-04-10] MEDS ORDERED: Pantoprazole 40 MG Tab.CR PO PRN (22:52)
[2019-04-10] MEDS ORDERED: Non-Formulary Medication 1 Each (Baclofen [Baclofen] 20 MG) PO PRN (22:52)
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
--- NOTE | 2019-04-11 00:07 | PN ---
THC Physician - Brief Progress [id number]/18/2019 23:46[facility] Juan Lepe, [place] - GET[place]HEW (JERED) - [facility]ENTERLYNDSEY KINGDate of Service 04/10/2019 23:46HPI/Events of Note eICU Brief Admission Note48 yo paraplegic from high T spine injury. Presented to ER after fa lling out of his wheelchair and striking his chest. In ER found to be hypoxic with borderline blood p ressures and recieved empiric vanco/zosynLA WNLAdditional Hx obtained by me over camera- patient does have an O2 concerntrator at home which he uses for treatement of migraines. He also does have a puls e ox monitor which per him usually reads between 85-90% at rest. Also he reports (as prev documented that his BP runs low with SBP's in 80-90 range). He does have a chronic indwelling foleyOn CameraNAD, pink and appears well perfusedBP HR 78 RR 18 Sats 93% on NRB AAOx4 Stump appears clean CTA reviewed - no pe, large Rt heart (RA and RV enlargement). +Atelectasis and evidence of pulm congestionHgb/hct 15.6/48.4ImpressionBased on labs and imaging I suspect chronic ongoing hypoxemia at baseline and do not think there is an acute event. He has evidence of termite helper right heart involvement, prob from ch ronic hypoxemia. I also wonder if there is an element of shunting that may be explaining it- both int rapulmonary (large areas of atelectasis from weak resp pump) as well as intracardiac (from raised rt sided pressures?)Recommend:Recieved Empiric antibiotics although doubtful acute infection. LA normal despite low BP readings and clinically is perfusing skin and brain very well. Would deescalate rapidl y as appropriateI would not annelise the BP overnight unless there is a clinical change. CXR & CT was we t and additional volume may exacerbate his chronic hypoxemiaTTE to better evaluat cardiac structure a nd functions and if possible bubble study to eval hypoxemiaReaching out to his PCP in the morning and reviewing with him any past pulmonary workup or planning. Suspect he has underlying restrictive pict ure from weak resp pump due to his T spine injury. He very well may benefit from access to termite helper non invasive ventilation Unfortunately hypoventilation from his pain regimen may also be contributing d/w bedside RN, neftali ordered for DVT prophInterventions Major-Hypotension - evaluation and manage ment, Hypoxemia - evaluation and oijseurpafOdeacwcayagl-Cwki-psrozeao therapies (e.g. VTE, beta block er, etc.), Communication with other healthcare providers and/or family
[2019-04-11] MEDS: Gabapentin 300 MG Cap PO SCH ×5 (00:09→23:24)
[2019-04-11] MEDS ORDERED: Methadone Oral Concentrate 10 MG/1 ML ML 30 ML Bottle PO SCH (00:15)
[2019-04-11] MEDS: Sodium Chloride 0.9% 1,000 ML IV SCH ×2 (00:16→23:57)
[2019-04-11] MEDS: Piperacillin/Tazobactam 3.375 GM in Sodium Chloride 0.9% 50 ML IV SCH ×4 (00:47→19:55)
[2019-04-11] MEDS: Enoxaparin 40 MG/0.4 ML Syringe SUBCUT SCH (01:19)
--- NOTE | 2019-04-11 02:14 | PN ---
THC Physician - Brief Progress [id number]/19/2019 02:13[facility] naima [place] - [place] (JERED) - LYNDSEY WESTONDate of Service 04/11/2019 02:13HPI/Events of Note eICU AddendumRN requesting regular dietOrderedInterventions Minor-Routine modifications to c are plan (e.g. PRN medications for pain, fever)Electronically Signed by: TARSHA FAM) on 04/11 02:14
[2019-04-11] MEDS ORDERED: Methadone 10 MG Tab PO SCH ×2 (03:00→09:00)
[2019-04-11] MEDS ORDERED: SUMATRIPTAN SUCCINATE 6 MG SUBCUT PRN (08:08)
[2019-04-11] MEDS ORDERED: Magnesium Hydroxide 400 MG/5 ML Susp 30 ML Cup PO ONE (08:17)
[2019-04-11] MEDS: SUMATRIPTAN SUCCINATE 6 MG SUBCUT PRN ×2 (08:49→15:55)
[2019-04-11] MEDS: Acetaminophen 500 MG Tab PO PRN ×3 (08:50→21:58)
[2019-04-11] MEDS: DULoxetine 60 MG Cap PO SCH (08:51)
[2019-04-11] MEDS: Oxybutynin 5 MG Tab PO SCH ×3 (08:52→20:27)
[2019-04-11 08:58] LABS: BLOOD UREA NITROGEN,BUN 6 mg/dL (7.0-18.0); CARBON DIOXIDE,CO2 27.9 mmol/L (21.0-32.0); CHLORIDE,CL 105 mmol/L (98-107); GLUCOSE RANDOM 82 mg/dL (74-106); SODIUM,NA 140 mmol/L (136-148)
--- NOTE | 2019-04-11 09:06 | PN ---
THC Physician - Brief Progress [id number]/19/2019 08:49[facility] Juan Lepe, [place] - BRISEYDAN (JERED) - [place] [facility] BURNETTEDate of Service 04/11/2019 08:49HPI/Events of Note eICU Progress [id number] admitted for hypoxemic respiratory failure and concern for sepsis. His tory obtained primarily from review of EMR.Camera exam: Laying in bed. Vitals monitor reviewed. Patie nt sitting up in chair.Vitals: reviewedLabs: reviewedRadiology: reviewedMeds: reviewedeICU Impression and Recommendations:Leukocytosis, although does not technically meet criteria for SIRS/sepsis, sugge stive of some sort of underlying infectious/inflammatory process- Agree with broad spectrum antibioti cs. Consider infectious work up with blood cultures, urine culture (although in and of itself may not be useful for making a diagnosis of UTI given history of chronic szymanski), procalcitonin, and de-escal ation if infectious work up negativeHypoxemic respiratory failure, suspect multifactorial with differ ential including RV dysfunction, some component of heart failure- TTE with bubble study, BNP if not a lready doneHypercapnic respiratory failure, potentially related to hypoventilation from diaphragmatic weakness, appears chronic with appropriate renal compensationDVT and GI prophylaxis as appropriate.W e are available to assist in further clarification, or implementation of any of the above recommendat ions if desired by primary service.Thank you for allowing us to participate in the care of this markus nt.The above note transcribed via dictation software. Please excuse any errors.Interventions Major-Hy poxemia - evaluation and management
[2019-04-11] MEDS: Baclofen 10 MG Tab PO PRN ×2 (09:39→19:50)
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
[2019-04-11] MEDS ORDERED: Docusate Sodium 100 MG Cap PO PRN (13:19)
[2019-04-11] MEDS ORDERED: Bisacodyl 5 MG Tab PO PRN (13:19)
[2019-04-11] MEDS: Methadone 10 MG Tab PO SCH ×3 (13:51→22:06)
--- NOTE | 2019-04-11 14:58 | CT ---
EXAM DATE: 04/10/19 PATIENT'S AGE: 48 CT abdomen and pelvis Technique: Multiple axial sections were obtained from above the dome of the diaphragm inferiorly through the pubic symphysis. Intravenous and oral contrast not utilized. Comparison: Prior CT abdomen and pelvis exam of 10/26/17. Findings: Small bilateral pleural effusions are noted. Mild atelectasis is also noted within both lung bases. Noncontrast appearance of the liver and spleen show no focal abnormality. Adrenal glands show no nodule. Pancreas shows no discrete abnormality. Gallbladder appears to contain multiple gallstones. Fair amount of food material is seen within the stomach. Kidneys show no hydronephrosis. Small nonobstructing stone is noted within the right kidney. No ureteral dilatation or ureteral stone is seen. Suprapubic catheter is seen within the bladder. Colostomy is noted. Appendix is seen which is normal. Soft tissue density is noted extending from the posterior rectum to the posterior skin tissue. This soft tissue finding is inferior to the sacrum. This finding is similar to the prior CT study and presumably is chronic. No free fluid or inflammatory change is seen. Bone window settings were reviewed which shows degenerative change within both hips as well as within the spine. Osteopenia is noted. No acute osseous finding is seen. Impression: 1. Small bilateral pleural effusions with mild bibasilar atelectasis. 2. Soft tissue density extending from the posterior rectum to the posterior skin. This is similar to prior CT exam and presumably is chronic and due to scarring. 3. Colostomy as well as suprapubic catheter. 4. Multiple gallstones which are an interval change from previous exam. 5. Other findings believed to be incidental. Diagnostic code #[address] [facility]
[2019-04-11] MEDS: Magnesium Hydroxide 400 MG/5 ML Susp 30 ML Cup PO PRN ×2 (15:18→17:50)
--- NOTE | 2019-04-11 15:21 | CR ---
EXAM DATE: 04/10/19 PATIENT'S AGE: 48 Pelvis and bilateral: AP view of the pelvis was obtained as well as crosstable lateral view of the left hip and frog-leg lateral view of the right hip. Bony structures are osteopenic. Mild joint space narrowing is seen within the right hip. More severe joint space narrowing is seen within the left hip. Slight cortical irregularity is noted within the inferior and superior pubic ramus slightly lateral to the pubic symphysis suspicious for nondisplaced pubic ramus fracture. No additional pelvis fracture is seen. No hip fracture is noted. Impression: 1. Nondisplaced pubic symphysis fracture on the right side. 2. Osteopenia. 3. Degenerative change within both hips. Diagnostic code #3 Report Signed by Proxy. [facility]
[2019-04-11] MEDS ORDERED: Lactulose Soln 10 GM/15 ML 15 ML UD Cup PO PRN (17:05)
[2019-04-11] MEDS ORDERED: hydrALAZINE 20 MG/ML SDV IVPUSH ONE (17:07)
--- NOTE | 2019-04-11 17:11 | PN ---
THC Physician - Brief Progress [id number]/19/2019 16:56[facility] Juan Lepe, SANTY - [facility]N [facility] - [facility]ALLYNDSEY KINGDate of Service 04/11/2019 16:56HPI/Events of Note eICU Update NoteNotified by RN of patient having headache all day, attributed to autonomic d ysreflexia. Management had been attempted with sumatriptan per report without improvement of symptoms . On evaluation by camera patient is clutching his face. Vitals reveals patient to be hemodynamically stable, with BP 103/46. Notably patient has been constipated throughout the day, which I suspect may be the etiology behind his headache/dysreflexia.Will order lactulose to be administered q2h PRN unti l he develops a bowel movement. With regards to additional doses of milk of magnesia, I defer to the primary service as to whether they are comfortable administering it, or wish to check further magnesi um levels. Will order 5mg of IV hydralazine to assess how if affects his headache - depending on traj ectory of blood pressure we may give additional doses. Plan discussed with bedside RN over telephone. Interventions Major-Other: autonomic dysreflexiaElectronically Signed by: SHERRIE VILLELA) on 17:10
--- NOTE | 2019-04-11 19:58 | CT ---
Indication: Fall, headache Technique: Nonenhanced axial CT imaging through the head. Sagittal and coronal reconstructions are provided. Comparison: CT head without contrast 03/19/2018 Findings: There is no intracranial hemorrhage, edema, or mass effect. There is normal attenuation of the brain parenchyma. The ventricles are normal in size. The basal cisterns are patent. The calvarium is intact. The visualized paranasal sinuses and mastoid air cells are well aerated. Impression: No acute intracranial process. Please note that all CT scans at this facility use dose modulation, iterative reconstruction, and/or weight-based dosing when appropriate to reduce radiation dose to as low as reasonably achievable. Dictated by Guanaco Cm MD @ Apr 11 2019 7:54PM Signed by Dr. Guanaco Cm @ Apr 11 2019 7:58PM
--- NOTE | 2019-04-11 20:00 | CT ---
INDICATION: Left leg stump. COMPARISON: None. TECHNIQUE: CT of the left tibia fibula/stump without contrast. FINDINGS: Left below the knee amputation at the level of the mid tibia fibula. The bones are diffusely demineralized. Cortical erosion along the distal medial cortex of the tibia at the amputation site (series 201 images [id number] through 662). Soft tissue thickening, edema and fluid adjacent to the distal stump medially. No drainable fluid collection identified. Skin ulceration along the distal medial stump. Diffuse marked muscle atrophy. Diffuse subcutaneous edema. No lytic or blastic lesion identified. No acute fracture or dislocation. No soft tissue gas identified. IMPRESSION: Skin ulceration with underlying soft tissue thickening and fluid, as well as cortical erosion of the tibia at the amputation site suspicious for osteomyelitis. Please note that all CT scans at this facility use dose modulation, iterative reconstruction, and/or weight-based dosing when appropriate to reduce radiation dose to as low as reasonably achievable. Dictated by Miky Huston MD @ Apr 12 2019 8:17AM Signed by Dr. Miky Huston @ Apr 12 2019 8:23AM
[2019-04-11] MEDS ORDERED: Vancomycin 1.25 GM SDV ONE (20:31)
[2019-04-11] MEDS ORDERED: Sodium Chloride 0.9% 250 ML ONE (20:32)
--- NOTE | 2019-04-11 20:41 | CT ---
Indication: Pain after fall. Technique: CT of the right tibia fibula without contrast. Comparison: None. Findings: Bones are diffusely demineralized. No acute fracture. Alignment is within normal limits. Healed fracture deformity of the distal tibia. Distal fibula is resected, with small linear osseous fragments. Small knee joint effusion. Diffuse marked muscle atrophy. No lytic or blastic lesion identified. No loculated fluid collection. Impression: No acute fracture or dislocation. Severe muscle atrophy. Posttraumatic changes as above. Please note that all CT scans at this facility use dose modulation, iterative reconstruction, and/or weight-based dosing when appropriate to reduce radiation dose to as low as reasonably achievable. Dictated by Miky Huston MD @ Apr 12 2019 8:23AM Signed by Dr. Miky Huston @ Apr 12 2019 8:29AM
--- NOTE | 2019-04-11 22:20 | PN ---
THC Physician - Brief Progress [id number]/19/2019 22:09[facility] Rebollar naima Juan, SANTY - [facility] MEXICOTRUPTIOSBALDOSaraLYNDSEYLauritaDate of Service 04/11/2019 22:09HPI/Events of Note Low BP ? chronic- add NS maintenance Headache better per RNOn lactulose prn for constipation D/w RNPt reting on video SBP 70'sInterventions Major-Hypotension - evaluation and managementElectron ically Signed by: Ra Panchal) on 04/11/2019 22:19
[2019-04-12] MEDS: Enoxaparin 40 MG/0.4 ML Syringe SUBCUT SCH ×2 (01:04→20:37)
[2019-04-12] MEDS: Piperacillin/Tazobactam 3.375 GM in Sodium Chloride 0.9% 50 ML IV SCH ×5 (01:13→20:59)
--- NOTE | 2019-04-12 03:17 | PN ---
THC Physician - Brief Progress [id number]/20/2019 03:15[facility] Rebollar naima [place] - [place] [facility] [facility]DOSaraLYNDSEYLauritaDate of Service 04/12/2019 03:15HPI/Events of Note LA better 0.8SBP 82 Making urine, asleep , asymptomatic -? autonomic reasons for low BPInter ventions Major-Hypotension - evaluation and management
[2019-04-12] MEDS: oxyCODONE 5 MG Tab PO PRN ×2 (04:17→16:58)
[2019-04-12] MEDS: SUMATRIPTAN SUCCINATE 6 MG SUBCUT PRN (05:33)
[2019-04-12] MEDS: Methadone 10 MG Tab PO SCH ×4 (05:34→20:39)
[2019-04-12] MEDS: Gabapentin 300 MG Cap PO SCH ×3 (06:10→20:21)
[2019-04-12 08:25] LABS: BLOOD UREA NITROGEN,BUN 8 mg/dL (7.0-18.0); CARBON DIOXIDE,CO2 25.3 mmol/L (21.0-32.0); CHLORIDE,CL 105 mmol/L (98-107); GLUCOSE RANDOM 94 mg/dL (74-106); POTASSIUM,K 4.2 mmol/L (3.5-5.1); SODIUM,NA 138 mmol/L (136-148)
[2019-04-12] MEDS: Oxybutynin 5 MG Tab PO SCH ×2 (08:56→20:38)
[2019-04-12] MEDS: DULoxetine 60 MG Cap PO SCH (08:56)
[2019-04-12] MEDS ORDERED: Acetaminophen/Butalbital/Caffeine 325-50-40 MG Tab PO PRN (09:53)
[2019-04-12] MEDS ORDERED: Promethazine 25 MG/ML SDV IM PRN (14:45)
[2019-04-12] MEDS ORDERED: Methadone 10 MG Tab ONE (16:08)
--- NOTE | 2019-04-12 17:56 | PCM.PN ---
- General Info Date of Service: 04/12/19 Subjective Update: At bedside this morning, patient complaining of headache and "not feeling well. " Tolerating diet well and reported having large bowel movement last night. - Patient Data Vitals - Most Recent: Last Vital Signs Temp 97.6 F 04/12/19 13:00 Pulse 75 04/10/19 21:15 Resp 20 04/12/19 15:00 BP 111/69 04/12/19 15:00 Pulse Ox 100 04/12/19 15:00 Weight - Most Recent: 196 lb 3.382 oz I&O - Last 24 Hours: Intake & Output 04/12/19 04/12/19 04/12/19 06:59 14:59 22:59 Intake Total 1045 250 Output Total 1800 Balance -755 250 Lab Results Last 24 Hours: Laboratory Results - last 24 hr 04/11/19 04/12/19 04/12/19 Range/Units 22:22 07:08 07:08 WBC 8.37 (4.0-11.0) K/uL RBC 4.18 L (4.50-5.90) M/uL Hgb 11.7 L (13.0-17.0) g/dL Hct 35.8 L (38.0-50.0) % MCV 85.6 (80.0-98.0) fL MCH 28.0 (27.0-32.0) pg MCHC 32.7 (31.0-37.0) g/dL RDW Std Deviation 48.2 (28.0-62.0) fl RDW Coeff of Emy 16 H (11.0-15.0) % Plt Count 130 L (150-400) K/uL MPV 9.40 (7.40-12.00) fL Neut % (Auto) 79.3 (48.0-80.0) % Lymph % (Auto) 11.6 L (16.0-40.0) % [place] % (Auto) 5.1 (0.0-15.0) % Eos % (Auto) 3.8 (0.0-7.0) % Baso % (Auto) 0.2 (0.0-1.5) % Neut # (Auto) 6.6 H (1.4-5.7) K/uL Lymph # (Auto) 1.0 (0.6-2.4) K/uL [place] # (Auto) 0.4 (0.0-0.8) K/uL Eos # (Auto) 0.3 (0.0-0.7) K/uL Baso # (Auto) 0.0 (0.0-0.1) K/uL Nucleated RBC % 0.0 /100WBC Nucleated RBCs # 0 K/uL Lactate 0.8 (0.20-2.00) mmol/L Sodium (136-148) mmol/L Potassium (3.5-5.1) mmol/L Chloride (98-107) mmol/L Carbon Dioxide (21.0-32.0) mmol/L BUN (7.0-18.0) mg/dL Creatinine (0.8-1.3) mg/dL Est Cr Clr Drug Dosing mL/min Estimated GFR (MDRD) ml/min Glucose (74-106) mg/dL Calcium (8.5-10.1) mg/dL Vancomycin Trough 13.1 H (5.0-10.0) ug/mL 04/12/19 Range/Units 07:08 WBC (4.0-11.0) K/uL RBC (4.50-5.90) M/uL Hgb (13.0-17.0) g/dL Hct (38.0-50.0) % MCV (80.0-98.0) fL MCH (27.0-32.0) pg MCHC (31.0-37.0) g/dL RDW Std Deviation (28.0-62.0) fl RDW Coeff of Emy (11.0-15.0) % Plt Count (150-400) K/uL MPV (7.40-12.00) fL Neut % (Auto) (48.0-80.0) % Lymph % (Auto) (16.0-40.0) % [place] % (Auto) (0.0-15.0) % Eos % (Auto) (0.0-7.0) % Baso % (Auto) (0.0-1.5) % Neut # (Auto) (1.4-5.7) K/uL Lymph # (Auto) (0.6-2.4) K/uL [place] # (Auto) (0.0-0.8) K/uL Eos # (Auto) (0.0-0.7) K/uL Baso # (Auto) (0.0-0.1) K/uL Nucleated RBC % /100WBC Nucleated RBCs # K/uL Lactate (0.20-2.00) mmol/L Sodium 138 (136-148) mmol/L Potassium 4.2 (3.5-5.1) mmol/L Chloride 105 (98-107) mmol/L Carbon Dioxide 25.3 (21.0-32.0) mmol/L BUN 8 (7.0-18.0) mg/dL Creatinine 0.6 L (0.8-1.3) mg/dL Est Cr Clr Drug Dosing 147.29 mL/min Estimated GFR (MDRD) > 60.0 ml/min Glucose 94 (74-106) mg/dL Calcium 7.5 L (8.5-10.1) mg/dL Vancomycin Trough (5.0-10.0) ug/mL Baldev Results Last 24 Hours: Microbiology 04/10/19 18:28 Urine Culture - Final Urine, Catheterized MIXED KEELY >100,000 CFU/ML 04/10/19 18:59 Aerobic Blood Culture - Preliminary Blood - Venous - Lab Draw NO GROWTH AFTER 1 DAY Anaerobic Blood Culture - Preliminary NO GROWTH AFTER 1 DAY 04/10/19 18:48 Aerobic Blood Culture - Preliminary Blood - Venous NO GROWTH AFTER 1 DAY Anaerobic Blood Culture - Preliminary NO GROWTH AFTER 1 DAY Med Orders - Current: Current Medications Acetaminophen (Tylenol Extra Strength) 500 mg PO Q6H PRN PRN Reason: Pain Last Admin: 04/11/19 21:58 Dose: 500 mg Acetaminophen/Butalbital/Caffeine (Fioricet 325-50-40 Mg) 1 tab PO Q6H PRN PRN Reason: Headache Last Admin: 04/12/19 13:36 Dose: 1 tab Baclofen (Lioresal) 20 mg PO TID PRN PRN Reason: spasm Last Admin: 04/11/19 19:50 Dose: 20 mg Bisacodyl (Dulcolax) 10 mg PO DAILY PRN PRN Reason: Constipation Docusate Sodium (Colace) 100 mg PO DAILY PRN PRN Reason: Constipation Duloxetine HCl (Cymbalta) 60 mg PO DAILY [facility] Last Admin: 04/12/19 08:56 Dose: 60 mg Enoxaparin Sodium (Lovenox) 40 mg SUBCUT Q24H [facility] Last Admin: 04/12/19 01:04 Dose: 40 mg Gabapentin (Neurontin) 900 mg PO QID [facility] Last Admin: 04/12/19 13:33 Dose: 900 mg Piperacillin Sod/Tazobactam (Sod 3.375 gm/ Sodium Chloride) 50 mls @ 100 mls/ hr IV Q6H [facility] Last Admin: 04/12/19 13:35 Dose: 100 mls/hr Sodium Chloride (Normal Saline) 1,000 mls @ 50 mls/hr IV ASDIRECTED [facility] Last Admin: 04/11/19 23:57 Dose: 50 mls/hr Vancomycin HCl 1.25 gm/ Sodium (Chloride) 250 mls @ 166.667 mls/hr IV Q12H [facility] Last Admin: 04/12/19 09:09 Dose: 166.667 mls/hr Lactulose (Chronulac) 30 gm PO Q2HR PRN PRN Reason: Constipation Magnesium Hydroxide (Milk Of Magnesia) 30 ml PO Q4H PRN PRN Reason: Constipation Last Admin: 04/11/19 17:50 Dose: 90 ml Methadone HCl (Methadone) 25 mg PO Q8H [facility] Last Admin: 04/12/19 09:06 Dose: 25 mg Oxybutynin Chloride (Oxybutynin) 5 mg PO BID [facility] Last Admin: 04/12/19 08:56 Dose: 5 mg Oxycodone HCl (Oxycodone) 5 mg PO Q4H PRN PRN Reason: Pain Last Admin: 04/12/19 16:58 Dose: 5 mg Pantoprazole Sodium (Protonix) 40 mg PO DAILY PRN PRN Reason: Heartburn Last Admin: 04/12/19 06:03 Dose: 40 mg Promethazine HCl (Phenergan) 25 mg IM Q6H PRN PRN Reason: Nausea Last Admin: 04/12/19 16:56 Dose: 25 mg Sodium Chloride (Saline Flush) 10 ml FLUSH ASDIRECTED PRN PRN Reason: Keep Vein Open Last Admin: 04/10/19 17:35 Dose: 10 ml Sodium Chloride (Saline Flush) 2.5 ml FLUSH ASDIRECTED PRN PRN Reason: Keep Vein Open Last Admin: 04/10/19 17:35 Dose: 2.5 ml Sumatriptan Succinate (Imitrex) 6 mg SUBCUT DAILY PRN PRN Reason: Acute Migraine Last Admin: 04/12/19 05:33 Dose: 6 mg Vancomycin HCl (Pharmacy To Dose - Vancomycin) 1 dose .XX ASDIRECTED [facility]ARYELLEN Discontinued Medications Albuterol/Ipratropium (Duoneb 3.0-0.5 Mg/3 Ml) 3 ml NEB ONETIME ONE Stop: 04/10/19 17:17 Last Admin: 04/10/19 17:34 Dose: 3 ml Hydralazine HCl (Apresoline) 5 mg IVPUSH ONETIME ONE Stop: 04/11/19 17:08 Last Admin: 04/11/19 17:51 Dose: 5 mg Sodium Chloride (Normal Saline) 1,000 mls @ 125 mls/hr IV STAT [facility] Last Admin: 04/11/19 00:16 Dose: 125 mls/hr Piperacillin Sod/Tazobactam (Sod 4.5 gm/ Sodium Chloride) 100 mls @ 100 mls/hr IV ONETIME ONE Stop: 04/10/19 20:35 Last Admin: 04/10/19 19:50 Dose: 100 mls/hr Vancomycin HCl 1 gm/ Sodium (Chloride) 250 mls @ 166 mls/hr IV ONETIME ONE Stop: 04/10/19 21:07 Last Admin: 04/10/19 22:36 Dose: 166 mls/hr Vancomycin HCl 1.25 gm/ Sodium (Chloride) 250 mls @ 166.667 mls/hr IV Q12H [facility] Last Admin: 04/11/19 20:35 Dose: 166.667 mls/hr Sodium Chloride (Normal Saline (Advbag)) Confirm Administered Dose 250 mls @ as directed .ROUTE .STK-MED ONE Stop: 04/11/19 20:33 Last Admin: 04/11/19 20:36 Dose: Not Given Magnesium Hydroxide (Milk Of Magnesia) 30 ml PO ONETIME ONE Stop: 04/11/19 08:18 Last Admin: 04/11/19 08:51 Dose: 30 ml Methadone HCl (Methadone Intensol) 20 mg PO Q6H [facility] Last Admin: 04/11/19 01:29 Dose: Not Given Methadone HCl (Methadone) 20 mg PO Q6HR [facility] Last Admin: 04/11/19 03:08 Dose: Not Given Methadone HCl (Methadone) 20 mg PO Q6H [facility] Last Admin: 04/11/19 08:51 Dose: 20 mg Methadone HCl (Methadone) Confirm Administered Dose 30 mg .ROUTE .STK-MED ONE Stop: 04/12/19 16:09 Non-Formulary Medication (Baclofen [Baclofen]) 20 mg PO TID PRN PRN Reason: spasm Sumatriptan (Succinate 6 Mg) 1 each SUBCUT DAILY PRN PRN Reason: Acute Migraine Vancomycin HCl (Vancomycin) Confirm Administered Dose 1.25 gm .ROUTE .STK-MED ONE Stop: 04/11/19 20:32 Last Admin: 04/11/19 20:36 Dose: Not Given - Exam General: Alert, Oriented, Cooperative, Mild Distress Lungs: Other (quiet breath sounds bilaterally) Cardiovascular: Regular Rate, Regular Rhythm GI/Abdominal Exam: Normal Bowel Sounds, Soft, Non-Tender, No Distention, Other ( colostomy bag in place) Extremities: Other (RLE no edema. LLE wrapped in dressings that c/d/i.) - Problem List Review Problem List Initiated/Reviewed/Updated: Yes - Plan Plan:: Assessment: 1. Suspected acute on chronic hypoxic respiratory failure. 2. Left lower extremity stump wound concerning for osteomyelitis. 3. Hypotension. 4. Chronic hypoxemia. 5. Leukocytosis, resolved. Plan: 1. Will continue to attempt to wean patient off of supplemental oxygen. Advised patient to continue using his incentive spirometer at least [address] showed small bilateral pleural effusion. 2. For left lower extremity stump wound, MRI ordered, however, patient refused MRI today. CT left leg showed concern for distal tibia osteomyelitis. Will attempt to re-order MRI tomorrow. Will continue with vancomycin and zosyn antibiotics. Will obtain previous health records for previous osteomyelitis infection from other healthcare facilities. Blood cultures negative. Urine cultures negative. 3. For hypotension, will continue to monitor, blood pressures have been stable.
[2019-04-12] MEDS ORDERED: Gabapentin 300 MG Cap PO ONE (21:15)
[2019-04-13] MEDS: Gabapentin 300 MG Cap PO SCH ×5 (00:42→23:36)
[2019-04-13] MEDS: Sodium Chloride 0.9% 1,000 ML IV SCH (01:21)
[2019-04-13] MEDS: Piperacillin/Tazobactam 3.375 GM in Sodium Chloride 0.9% 50 ML IV SCH ×4 (02:20→20:14)
[2019-04-13 05:52] LABS: BLOOD UREA NITROGEN,BUN 7 mg/dL (7.0-18.0); CHLORIDE,CL 106 mmol/L (98-107); GLUCOSE RANDOM 82 mg/dL (74-106); POTASSIUM,K 4.3 mmol/L (3.5-5.1); SODIUM,NA 140 mmol/L (136-148)
[2019-04-13] MEDS: Methadone 10 MG Tab PO SCH ×3 (06:49→18:06)
[2019-04-13] MEDS: Oxybutynin 5 MG Tab PO SCH ×2 (08:17→20:10)
[2019-04-13] MEDS: DULoxetine 60 MG Cap PO SCH (08:17)
[2019-04-13] MEDS ORDERED: Albuterol/Ipratropium 3.0-0.5 MG/3 ML Neb Soln NEB ONE (08:42)
--- NOTE | 2019-04-13 10:13 | CR ---
INDICATION: Hypoxia. TECHNIQUE: AP portable chest x-ray. COMPARISON: Chest x-ray 04/10/2018. FINDINGS: Old left rib fractures. Patchy infiltrate and atelectasis in the mid and lower lungs with possible superimposed pleural effusions could be related to pulmonary edema or infectious or inflammatory uptake. Findings are new. Heart size within normal limits for AP technique. Chest otherwise stable. Dictated by Bryant Wang MD @ Apr 13 2019 10:09AM Signed by Dr. Bryant Wang @ Apr 13 2019 10:12AM
--- NOTE | 2019-04-13 11:04 | PCM.PN ---
- General Info Date of Service: 04/13/19 Subjective Update: Patient reports headache feels better this morning. Tolerating oral diet and is having bowel movements. Reports sleeping well overnight. - Patient Data Vitals - Most Recent: Last Vital Signs Temp 99.3 F 04/13/19 08:00 Pulse 62 04/13/19 09:00 Resp 13 04/13/19 09:00 BP 101/45 L 04/13/19 09:00 Pulse Ox 93 L 04/13/19 09:00 Weight - Most Recent: 196 lb 3.382 oz I&O - Last 24 Hours: Intake & Output 04/12/19 04/13/19 04/13/19 22:59 06:59 14:59 Intake Total 50 2120 Output Total 2430 Balance 50 -310 Lab Results Last 24 Hours: Laboratory Results - last 24 hr 04/13/19 04/13/19 Range/Units 05:27 05:27 WBC 5.97 (4.0-11.0) K/uL RBC 3.84 L (4.50-5.90) M/uL Hgb 10.8 L (13.0-17.0) g/dL Hct 33.6 L (38.0-50.0) % MCV 87.5 (80.0-98.0) fL MCH 28.1 (27.0-32.0) pg MCHC 32.1 (31.0-37.0) g/dL RDW Std Deviation 49.6 (28.0-62.0) fl RDW Coeff of Emy 16 H (11.0-15.0) % Plt Count 133 L (150-400) K/uL MPV 9.10 (7.40-12.00) fL Neut % (Auto) 71.7 (48.0-80.0) % Lymph % (Auto) 17.6 (16.0-40.0) % [place] % (Auto) 6.0 (0.0-15.0) % Eos % (Auto) 4.4 (0.0-7.0) % Baso % (Auto) 0.3 (0.0-1.5) % Neut # (Auto) 4.3 (1.4-5.7) K/uL Lymph # (Auto) 1.1 (0.6-2.4) K/uL [place] # (Auto) 0.4 (0.0-0.8) K/uL Eos # (Auto) 0.3 (0.0-0.7) K/uL Baso # (Auto) 0.0 (0.0-0.1) K/uL Nucleated RBC % 0.0 /100WBC Nucleated RBCs # 0 K/uL Sodium 140 (136-148) mmol/L Potassium 4.3 (3.5-5.1) mmol/L Chloride 106 (98-107) mmol/L Carbon Dioxide 32.0 (21.0-32.0) mmol/L BUN 7 (7.0-18.0) mg/dL Creatinine 0.7 L (0.8-1.3) mg/dL Est Cr Clr Drug Dosing 126.25 mL/min Estimated GFR (MDRD) > 60.0 ml/min Glucose 82 (74-106) mg/dL Calcium 7.7 L (8.5-10.1) mg/dL Baldev Results Last 24 Hours: Microbiology 04/10/19 18:59 Aerobic Blood Culture - Preliminary Blood - Venous - Lab Draw NO GROWTH AFTER 2 DAYS Anaerobic Blood Culture - Preliminary NO GROWTH AFTER 2 DAYS 04/10/19 18:48 Aerobic Blood Culture - Preliminary Blood - Venous NO GROWTH AFTER 2 DAYS Anaerobic Blood Culture - Preliminary NO GROWTH AFTER 2 DAYS 04/10/19 18:28 Urine Culture - Final Urine, Catheterized MIXED KEELY >100,000 CFU/ML Med Orders - Current: Current Medications Acetaminophen (Tylenol Extra Strength) 500 mg PO Q6H PRN PRN Reason: Pain Last Admin: 04/11/19 21:58 Dose: 500 mg Acetaminophen/Butalbital/Caffeine (Fioricet 325-50-40 Mg) 1 tab PO Q6H PRN PRN Reason: Headache Last Admin: 04/12/19 13:36 Dose: 1 tab Baclofen (Lioresal) 20 mg PO TID PRN PRN Reason: spasm Last Admin: 04/11/19 19:50 Dose: 20 mg Bisacodyl (Dulcolax) 10 mg PO DAILY PRN PRN Reason: Constipation Docusate Sodium (Colace) 100 mg PO DAILY PRN PRN Reason: Constipation Duloxetine HCl (Cymbalta) 60 mg PO DAILY [facility] Last Admin: 04/13/19 08:17 Dose: 60 mg Enoxaparin Sodium (Lovenox) 40 mg SUBCUT Q24H [facility] Last Admin: 04/12/19 20:37 Dose: 40 mg Gabapentin (Neurontin) 900 mg PO QID [facility] Last Admin: 04/13/19 06:48 Dose: 900 mg Piperacillin Sod/Tazobactam (Sod 3.375 gm/ Sodium Chloride) 50 mls @ 100 mls/ hr IV Q6H [facility] Last Admin: 04/13/19 08:10 Dose: 100 mls/hr Vancomycin HCl 1.25 gm/ Sodium (Chloride) 250 mls @ 166.667 mls/hr IV Q12H [facility] Last Admin: 04/13/19 09:09 Dose: 166.667 mls/hr Lactulose (Chronulac) 30 gm PO Q2HR PRN PRN Reason: Constipation Magnesium Hydroxide (Milk Of Magnesia) 30 ml PO Q4H PRN PRN Reason: Constipation Last Admin: 04/11/19 17:50 Dose: 90 ml Methadone HCl (Methadone) 25 mg PO Q8H [facility] Last Admin: 04/13/19 06:49 Dose: 25 mg Oxybutynin Chloride (Oxybutynin) 5 mg PO BID [facility] Last Admin: 04/13/19 08:17 Dose: 5 mg Oxycodone HCl (Oxycodone) 5 mg PO Q4H PRN PRN Reason: Pain Last Admin: 04/12/19 16:58 Dose: 5 mg Pantoprazole Sodium (Protonix) 40 mg PO DAILY PRN PRN Reason: Heartburn Last Admin: 04/12/19 06:03 Dose: 40 mg Promethazine HCl (Phenergan) 25 mg IM Q6H PRN PRN Reason: Nausea Last Admin: 04/12/19 16:56 Dose: 25 mg Sodium Chloride (Saline Flush) 10 ml FLUSH ASDIRECTED PRN PRN Reason: Keep Vein Open Last Admin: 04/10/19 17:35 Dose: 10 ml Sodium Chloride (Saline Flush) 2.5 ml FLUSH ASDIRECTED PRN PRN Reason: Keep Vein Open Last Admin: 04/10/19 17:35 Dose: 2.5 ml Sumatriptan Succinate (Imitrex) 6 mg SUBCUT DAILY PRN PRN Reason: Acute Migraine Last Admin: 04/12/19 05:33 Dose: 6 mg Vancomycin HCl (Pharmacy To Dose - Vancomycin) 1 dose .XX ASDIRECTED [facility] Discontinued Medications Albuterol/Ipratropium (Duoneb 3.0-0.5 Mg/3 Ml) 3 ml NEB ONETIME ONE Stop: 04/10/19 17:17 Last Admin: 04/10/19 17:34 Dose: 3 ml Albuterol/Ipratropium (Duoneb 3.0-0.5 Mg/3 Ml) 3 ml NEB ONETIME ONE Stop: 04/13/19 08:43 Last Admin: 04/13/19 08:57 Dose: 3 ml Duloxetine HCl (Cymbalta) 60 mg PO DAILY [facility] Last Admin: 04/12/19 08:56 Dose: 60 mg Enoxaparin Sodium (Lovenox) 40 mg SUBCUT Q24H [facility] Last Admin: 04/12/19 01:04 Dose: 40 mg Gabapentin (Neurontin) 900 mg PO QID [facility] Last Admin: 04/12/19 20:21 Dose: Not Given Gabapentin (Neurontin) 900 mg PO ONETIME ONE Stop: 04/12/19 21:16 Last Admin: 04/12/19 21:15 Dose: 900 mg Hydralazine HCl (Apresoline) 5 mg IVPUSH ONETIME ONE Stop: 04/11/19 17:08 Last Admin: 04/11/19 17:51 Dose: 5 mg Sodium Chloride (Normal Saline) 1,000 mls @ 125 mls/hr IV STAT [facility] Last Admin: 04/11/19 00:16 Dose: 125 mls/hr Piperacillin Sod/Tazobactam (Sod 4.5 gm/ Sodium Chloride) 100 mls @ 100 mls/hr IV ONETIME ONE Stop: 04/10/19 20:35 Last Admin: 04/10/19 19:50 Dose: 100 mls/hr Vancomycin HCl 1 gm/ Sodium (Chloride) 250 mls @ 166 mls/hr IV ONETIME ONE Stop: 04/10/19 21:07 Last Admin: 04/10/19 22:36 Dose: 166 mls/hr Piperacillin Sod/Tazobactam (Sod 3.375 gm/ Sodium Chloride) 50 mls @ 100 mls/ hr IV Q6H [facility] Last Admin: 04/12/19 20:59 Dose: Not Given Vancomycin HCl 1.25 gm/ Sodium (Chloride) 250 mls @ 166.667 mls/hr IV Q12H [facility] Last Admin: 04/12/19 20:59 Dose: Not Given Sodium Chloride (Normal Saline (Advbag)) Confirm Administered Dose 250 mls @ as directed .ROUTE .STK-MED ONE Stop: 04/11/19 20:33 Last Admin: 04/11/19 20:36 Dose: Not Given Sodium Chloride (Normal Saline) 1,000 mls @ 50 mls/hr IV ASDIRECTED [facility] Last Admin: 04/13/19 01:21 Dose: 50 mls/hr Vancomycin HCl 1.25 gm/ Sodium (Chloride) 250 mls @ 166.667 mls/hr IV Q12H [facility] Last Admin: 04/12/19 09:09 Dose: 166.667 mls/hr Magnesium Hydroxide (Milk Of Magnesia) 30 ml PO ONETIME ONE Stop: 04/11/19 08:18 Last Admin: 04/11/19 08:51 Dose: 30 ml Methadone HCl (Methadone Intensol) 20 mg PO Q6H [facility] Last Admin: 04/11/19 01:29 Dose: Not Given Methadone HCl (Methadone) 20 mg PO Q6HR [facility] Last Admin: 04/11/19 03:08 Dose: Not Given Methadone HCl (Methadone) 20 mg PO Q6H [facility] Last Admin: 04/11/19 08:51 Dose: 20 mg Methadone HCl (Methadone) 25 mg PO Q8H [facility] Last Admin: 04/12/19 20:20 Dose: Not Given Methadone HCl (Methadone) Confirm Administered Dose 30 mg .ROUTE .STK-MED ONE Stop: 04/12/19 16:09 Last Admin: 04/12/19 19:35 Dose: 30 mg Non-Formulary Medication (Baclofen [Baclofen]) 20 mg PO TID PRN PRN Reason: spasm Oxybutynin Chloride (Oxybutynin) 5 mg PO BID [facility] Last Admin: 04/12/19 08:56 Dose: 5 mg Sumatriptan (Succinate 6 Mg) 1 each SUBCUT DAILY PRN PRN Reason: Acute Migraine Vancomycin HCl (Vancomycin) Confirm Administered Dose 1.25 gm .ROUTE .STK-MED ONE Stop: 04/11/19 20:32 Last Admin: 04/11/19 20:36 Dose: Not Given - Exam General: Alert, Oriented, Cooperative, No Acute Distress Lungs: Other (quiet breath sounds bilaterally. Better aeration in RUL and SHILPI than lower lobes bilaterally.) Cardiovascular: Regular Rate, Regular Rhythm Skin: Other (Dressings over left stump wound, c/d/i.) - Problem List Review Problem List Initiated/Reviewed/Updated: Yes - My Orders Last 24 Hours: My Active Orders 04/13/19 08:42 RT Aerosol Therapy [RC] ASDIRECTED 04/13/19 08:43 Tibia Fibula w wo Cont Lt [MR] Urgent - Plan Plan:: Assessment: 1. Suspected acute on chronic hypoxic respiratory failure. 2. Left lower extremity stump wound concerning for osteomyelitis. 3. Hypotension, stable. 4. Chronic hypoxemia. 5. Leukocytosis, resolved. Plan: 1. Educated patient on importance of using incentive spirometer at least 10 times per hour. He is currently on 4L of oxygen and will continue to try and wean patient down today. Repeat CXR showed old left rib fractures with possible pleural effusions. Will continue to monitor. Will also order duoneb breathing treatment today. 2. For left lower extremity stump wound, patient refused MRI yesterday. Agreeable to MRI today. Continue vancomycin and zosyn antibiotics. Blood and urine cultures were negative. 3. For hypotension, will continue to monitor, blood pressures have been stable and improved overall.
--- NOTE | 2019-04-13 15:11 | PN ---
THC Physician - Brief Progress [id number]/21/2019 10:27[facility] Juan Lepe, [place] - [facility] - [facility]NDSEY KINGDate of Service 04/13/2019 10:27HPI/Events of Note eICU Progress NotePt is a 48 yo M admitted on 04/11 for infection with a UTI and cellulitis. His LA has now resolved and his BP has normalized with an improved WBC of 5.97 down from 18.78. He r emains on Vanc and Zosyn. His BP has been stable, but he does demonstrate autonomic dysregulation. HI s headache continue and are not responding to Fioricet, O2 like his Cluster headaches do, or Caffiene . He has otherwise been weaned to O2 via NC of 4 L and is doing better. He was unable to get his MRI to r/o Osteo secondary to Anxiety. Plans are for him to remain in the ICU for now. Case was discussed with his nurse Aminata. eICU Recommendations:1) Continue course of antibiotics2) Await final culture results3) Trial a dose of Motrin 600 mg for Headache4) Continue wound care5) O2 via NC to maintain Sp O2 > 94%6) O2 via Mask for Cluster headaches PRN7) Consider Anesthesia sedation to obtain MRIThank yo u for allowing us to participate in the care of your patient.Interventions Intermediate-Communication with other healthcare providers and/or family, Infection - evaluation and management, Medication brian nge / dose adjustment, Pain - evaluation and management
[2019-04-13] MEDS: Magnesium Hydroxide 400 MG/5 ML Susp 30 ML Cup PO PRN (18:05)
[2019-04-13] MEDS: oxyCODONE 5 MG Tab PO PRN (20:10)
[2019-04-13] MEDS: Enoxaparin 40 MG/0.4 ML Syringe SUBCUT SCH (20:12)
[2019-04-14] MEDS: Piperacillin/Tazobactam 3.375 GM in Sodium Chloride 0.9% 50 ML IV SCH ×3 (01:37→14:21)
[2019-04-14] MEDS: Gabapentin 300 MG Cap PO SCH ×4 (06:15→23:11)
[2019-04-14 06:37] LABS: BLOOD UREA NITROGEN,BUN 9 mg/dL (7.0-18.0); CARBON DIOXIDE,CO2 31.5 mmol/L (21.0-32.0); CHLORIDE,CL 108 mmol/L (98-107); GLUCOSE RANDOM 87 mg/dL (74-106); POTASSIUM,K 4.2 mmol/L (3.5-5.1); SODIUM,NA 144 mmol/L (136-148)
[2019-04-14] MEDS: Methadone 10 MG Tab PO SCH ×3 (08:52→19:32)
[2019-04-14] MEDS: Oxybutynin 5 MG Tab PO SCH ×2 (08:54→20:27)
[2019-04-14] MEDS: DULoxetine 60 MG Cap PO SCH (08:55)
[2019-04-14] MEDS ORDERED: Pantoprazole 40 MG Tab.CR PO PRN (09:30)
--- NOTE | 2019-04-14 15:05 | PCM.PN ---
- General Info Date of Service: 04/14/19 Subjective Update: Patient refused MRI yesterday. He was on 4L NC overnight and reports breathing has improved. Denies headache this morning. Tolerating oral diet well. He is having bowel movements. - Patient Data Vitals - Most Recent: Last Vital Signs Temp 98.8 F 04/14/19 12:00 Pulse 62 04/13/19 09:00 Resp 16 04/14/19 12:00 BP 113/60 04/14/19 12:00 Pulse Ox 94 L 04/14/19 12:00 Weight - Most Recent: 196 lb 3.382 oz I&O - Last 24 Hours: Intake & Output 04/13/19 04/14/19 04/14/19 22:59 06:59 14:59 Intake Total 300 1020 250 Output Total 2300 Balance 300 -1280 250 Lab Results Last 24 Hours: Laboratory Results - last 24 hr 04/14/19 04/14/19 04/14/19 Range/Units 06:00 06:00 06:00 WBC 4.77 (4.0-11.0) K/uL RBC 3.89 L (4.50-5.90) M/uL Hgb 10.9 L (13.0-17.0) g/dL Hct 34.4 L (38.0-50.0) % MCV 88.4 (80.0-98.0) fL MCH 28.0 (27.0-32.0) pg MCHC 31.7 (31.0-37.0) g/dL RDW Std Deviation 50.5 (28.0-62.0) fl RDW Coeff of Emy 16 H (11.0-15.0) % Plt Count 161 (150-400) K/uL MPV 9.00 (7.40-12.00) fL Neut % (Auto) 57.3 (48.0-80.0) % Lymph % (Auto) 24.1 (16.0-40.0) % Hale % (Auto) 10.7 (0.0-15.0) % Eos % (Auto) 7.5 H (0.0-7.0) % Baso % (Auto) 0.4 (0.0-1.5) % Neut # (Auto) 2.7 (1.4-5.7) K/uL Lymph # (Auto) 1.2 (0.6-2.4) K/uL Hale # (Auto) 0.5 (0.0-0.8) K/uL Eos # (Auto) 0.4 (0.0-0.7) K/uL Baso # (Auto) 0.0 (0.0-0.1) K/uL Nucleated RBC % 0.0 /100WBC Nucleated RBCs # 0 K/uL ESR 40 H (0-19) mm/hr Sodium 144 (136-148) mmol/L Potassium 4.2 (3.5-5.1) mmol/L Chloride 108 H (98-107) mmol/L Carbon Dioxide 31.5 (21.0-32.0) mmol/L BUN 9 (7.0-18.0) mg/dL Creatinine 0.8 (0.8-1.3) mg/dL Est Cr Clr Drug Dosing 110.47 mL/min Estimated GFR (MDRD) > 60.0 ml/min Glucose 87 (74-106) mg/dL Calcium 7.9 L (8.5-10.1) mg/dL Total Bilirubin 0.5 (0.2-1.0) mg/dL AST 9 L (15-37) IU/L ALT 15 (14-63) IU/L Alkaline Phosphatase 62 (46-116) U/L C-Reactive Protein (0.00-0.90) mg/dL Total Protein 5.6 L (6.4-8.2) g/dL Albumin 2.0 L (3.4-5.0) g/dL Globulin 3.6 (2.6-4.0) g/dL Albumin/Globulin Ratio 0.6 L (0.9-1.6) 04/14/19 Range/Units 06:00 WBC (4.0-11.0) K/uL RBC (4.50-5.90) M/uL Hgb (13.0-17.0) g/dL Hct (38.0-50.0) % MCV (80.0-98.0) fL MCH (27.0-32.0) pg MCHC (31.0-37.0) g/dL RDW Std Deviation (28.0-62.0) fl RDW Coeff of Emy (11.0-15.0) % Plt Count (150-400) K/uL MPV (7.40-12.00) fL Neut % (Auto) (48.0-80.0) % Lymph % (Auto) (16.0-40.0) % Hale % (Auto) (0.0-15.0) % Eos % (Auto) (0.0-7.0) % Baso % (Auto) (0.0-1.5) % Neut # (Auto) (1.4-5.7) K/uL Lymph # (Auto) (0.6-2.4) K/uL Hale # (Auto) (0.0-0.8) K/uL Eos # (Auto) (0.0-0.7) K/uL Baso # (Auto) (0.0-0.1) K/uL Nucleated RBC % /100WBC Nucleated RBCs # K/uL ESR (0-19) mm/hr Sodium (136-148) mmol/L Potassium (3.5-5.1) mmol/L Chloride (98-107) mmol/L Carbon Dioxide (21.0-32.0) mmol/L BUN (7.0-18.0) mg/dL Creatinine (0.8-1.3) mg/dL Est Cr Clr Drug Dosing mL/min Estimated GFR (MDRD) ml/min Glucose (74-106) mg/dL Calcium (8.5-10.1) mg/dL Total Bilirubin (0.2-1.0) mg/dL AST (15-37) IU/L ALT (14-63) IU/L Alkaline Phosphatase (46-116) U/L C-Reactive Protein 11.50 H (0.00-0.90) mg/dL Total Protein (6.4-8.2) g/dL Albumin (3.4-5.0) g/dL Globulin (2.6-4.0) g/dL Albumin/Globulin Ratio (0.9-1.6) Baldev Results Last 24 Hours: Microbiology 04/10/19 18:59 Aerobic Blood Culture - Preliminary Blood - Venous - Lab Draw NO GROWTH AFTER 3 DAYS Anaerobic Blood Culture - Preliminary NO GROWTH AFTER 3 DAYS 04/10/19 18:48 Aerobic Blood Culture - Preliminary Blood - Venous NO GROWTH AFTER 3 DAYS Anaerobic Blood Culture - Preliminary NO GROWTH AFTER 3 DAYS Med Orders - Current: Current Medications Acetaminophen (Tylenol Extra Strength) 500 mg PO Q6H PRN PRN Reason: Pain Last Admin: 04/11/19 21:58 Dose: 500 mg Acetaminophen/Butalbital/Caffeine (Fioricet 325-50-40 Mg) 1 tab PO Q6H PRN PRN Reason: Headache Last Admin: 04/12/19 13:36 Dose: 1 tab Baclofen (Lioresal) 20 mg PO TID PRN PRN Reason: spasm Last Admin: 04/11/19 19:50 Dose: 20 mg Bisacodyl (Dulcolax) 10 mg PO DAILY PRN PRN Reason: Constipation Docusate Sodium (Colace) 100 mg PO DAILY PRN PRN Reason: Constipation Duloxetine HCl (Cymbalta) 60 mg PO DAILY [facility] Last Admin: 04/14/19 08:55 Dose: 60 mg Enoxaparin Sodium (Lovenox) 40 mg SUBCUT Q24H [facility] Last Admin: 04/13/19 20:12 Dose: 40 mg Gabapentin (Neurontin) 900 mg PO QID [facility] Last Admin: 04/14/19 13:00 Dose: 900 mg Piperacillin Sod/Tazobactam (Sod 3.375 gm/ Sodium Chloride) 50 mls @ 100 mls/ hr IV Q6H [facility] Last Admin: 04/14/19 14:21 Dose: 100 mls/hr Vancomycin HCl 1.25 gm/ Sodium (Chloride) 250 mls @ 166.667 mls/hr IV Q12H [facility] Last Admin: 04/14/19 08:57 Dose: 166.667 mls/hr Lactulose (Chronulac) 30 gm PO Q2HR PRN PRN Reason: Constipation Magnesium Hydroxide (Milk Of Magnesia) 30 ml PO Q4H PRN PRN Reason: Constipation Last Admin: 04/13/19 18:05 Dose: 30 ml Methadone HCl (Methadone) 25 mg PO 0900,1400,1900 [facility] Last Admin: 04/14/19 13:10 Dose: 25 mg Oxybutynin Chloride (Oxybutynin) 5 mg PO BID [facility] Last Admin: 04/14/19 08:54 Dose: 5 mg Oxycodone HCl (Oxycodone) 5 mg PO Q4H PRN PRN Reason: Pain Last Admin: 04/13/19 20:10 Dose: 5 mg Pantoprazole Sodium (Protonix) 40 mg PO DAILY PRN PRN Reason: Heartburn Last Admin: 04/14/19 09:36 Dose: 40 mg Promethazine HCl (Phenergan) 25 mg IM Q6H PRN PRN Reason: Nausea Last Admin: 04/12/19 16:56 Dose: 25 mg Sodium Chloride (Saline Flush) 10 ml FLUSH ASDIRECTED PRN PRN Reason: Keep Vein Open Last Admin: 04/10/19 17:35 Dose: 10 ml Sodium Chloride (Saline Flush) 2.5 ml FLUSH ASDIRECTED PRN PRN Reason: Keep Vein Open Last Admin: 04/10/19 17:35 Dose: 2.5 ml Sumatriptan Succinate (Imitrex) 6 mg SUBCUT DAILY PRN PRN Reason: Acute Migraine Last Admin: 04/12/19 05:33 Dose: 6 mg Vancomycin HCl (Pharmacy To Dose - Vancomycin) 1 dose .XX ASDIRECTED [facility] Discontinued Medications Albuterol/Ipratropium (Duoneb 3.0-0.5 Mg/3 Ml) 3 ml NEB ONETIME ONE Stop: 04/10/19 17:17 Last Admin: 04/10/19 17:34 Dose: 3 ml Albuterol/Ipratropium (Duoneb 3.0-0.5 Mg/3 Ml) 3 ml NEB ONETIME ONE Stop: 04/13/19 08:43 Last Admin: 04/13/19 08:57 Dose: 3 ml Duloxetine HCl (Cymbalta) 60 mg PO DAILY [facility] Last Admin: 04/12/19 08:56 Dose: 60 mg Enoxaparin Sodium (Lovenox) 40 mg SUBCUT Q24H [facility] Last Admin: 04/12/19 01:04 Dose: 40 mg Gabapentin (Neurontin) 900 mg PO QID [facility] Last Admin: 04/12/19 20:21 Dose: Not Given Gabapentin (Neurontin) 900 mg PO ONETIME ONE Stop: 04/12/19 21:16 Last Admin: 04/12/19 21:15 Dose: 900 mg Hydralazine HCl (Apresoline) 5 mg IVPUSH ONETIME ONE Stop: 04/11/19 17:08 Last Admin: 04/11/19 17:51 Dose: 5 mg Sodium Chloride (Normal Saline) 1,000 mls @ 125 mls/hr IV STAT [facility] Last Admin: 04/11/19 00:16 Dose: 125 mls/hr Piperacillin Sod/Tazobactam (Sod 4.5 gm/ Sodium Chloride) 100 mls @ 100 mls/hr IV ONETIME ONE Stop: 04/10/19 20:35 Last Admin: 04/10/19 19:50 Dose: 100 mls/hr Vancomycin HCl 1 gm/ Sodium (Chloride) 250 mls @ 166 mls/hr IV ONETIME ONE Stop: 04/10/19 21:07 Last Admin: 04/10/19 22:36 Dose: 166 mls/hr Piperacillin Sod/Tazobactam (Sod 3.375 gm/ Sodium Chloride) 50 mls @ 100 mls/ hr IV Q6H [facility] Last Admin: 04/12/19 20:59 Dose: Not Given Vancomycin HCl 1.25 gm/ Sodium (Chloride) 250 mls @ 166.667 mls/hr IV Q12H [facility] Last Admin: 04/12/19 20:59 Dose: Not Given Sodium Chloride (Normal Saline (Advbag)) Confirm Administered Dose 250 mls @ as directed .ROUTE .STK-MED ONE Stop: 04/11/19 20:33 Last Admin: 04/11/19 20:36 Dose: Not Given Sodium Chloride (Normal Saline) 1,000 mls @ 50 mls/hr IV ASDIRECTED [facility] Last Admin: 04/13/19 01:21 Dose: 50 mls/hr Vancomycin HCl 1.25 gm/ Sodium (Chloride) 250 mls @ 166.667 mls/hr IV Q12H [facility] Last Admin: 04/12/19 09:09 Dose: 166.667 mls/hr Magnesium Hydroxide (Milk Of Magnesia) 30 ml PO ONETIME ONE Stop: 04/11/19 08:18 Last Admin: 04/11/19 08:51 Dose: 30 ml Methadone HCl (Methadone Intensol) 20 mg PO Q6H [facility] Last Admin: 04/11/19 01:29 Dose: Not Given Methadone HCl (Methadone) 20 mg PO Q6HR [facility] Last Admin: 04/11/19 03:08 Dose: Not Given Methadone HCl (Methadone) 20 mg PO Q6H [facility] Last Admin: 04/11/19 08:51 Dose: 20 mg Methadone HCl (Methadone) 25 mg PO Q8H [facility] Last Admin: 04/12/19 20:20 Dose: Not Given Methadone HCl (Methadone) Confirm Administered Dose 30 mg .ROUTE .STK-MED ONE Stop: 04/12/19 16:09 Last Admin: 04/12/19 19:35 Dose: 30 mg Methadone HCl (Methadone) 25 mg PO Q8H [facility] Last Admin: 04/13/19 06:49 Dose: 25 mg Non-Formulary Medication (Baclofen [Baclofen]) 20 mg PO TID PRN PRN Reason: spasm Oxybutynin Chloride (Oxybutynin) 5 mg PO BID [facility] Last Admin: 04/12/19 08:56 Dose: 5 mg Pantoprazole Sodium (Protonix) 40 mg PO DAILY PRN PRN Reason: Heartburn Last Admin: 04/12/19 06:03 Dose: 40 mg Sumatriptan (Succinate 6 Mg) 1 each SUBCUT DAILY PRN PRN Reason: Acute Migraine Vancomycin HCl (Vancomycin) Confirm Administered Dose 1.25 gm .ROUTE .STK-MED ONE Stop: 04/11/19 20:32 Last Admin: 04/11/19 20:36 Dose: Not Given - Exam General: Alert, Oriented, Cooperative, No Acute Distress Lungs: Clear to Auscultation, Normal Respiratory Effort Cardiovascular: Regular Rate, Regular Rhythm GI/Abdominal Exam: Normal Bowel Sounds, Soft, Non-Tender, No Distention ( colostomy bag draining brown colored fluid) Extremities: Other (Left leg stump: wound covered by dressings which are c/d/i.) - Problem List Review Problem List Initiated/Reviewed/Updated: Yes - My Orders Last 24 Hours: My Active Orders 04/14/19 09:23 Transfer Patient (Change bed) [ADT] Routine 04/14/19 12:45 CULTURE WOUND [RM] Stat - Plan Plan:: Assessment: 1. Suspected acute on chronic hypoxic respiratory failure, improving. 2. Left lower extremity stump wound concerning for osteomyelitis. 3. Hypotension, stable. 4. Leukocytosis, resolved. Plan: 1. Will continue to attempt to wean patient off of oxygen. He is currently on 2L of oxygen. Encouraged incentive spirometer use. 2. For left lower extremity stump wound, patient refused MRI again today. He does not wish to have MRI done. Contacted infectious disease specialist Dr. Crump in [place], [place] for further recommendations. Dr. Crump recommended obtaining wound cultures, discontinuing zosyn and starting patient on meropenem 1 g q8h until final wound culture result. Continue IV vancomycin. Use dakins 0.125% wet-to-dry dressing changes three times daily. Dr. Crump said to update him in a few days when final wound culture results have returned. 3. For hypotension, will continue to monitor. Blood pressure stable.
[2019-04-14] MEDS: Meropenem Premix 1 GM in Premix Bag 1 BAG IV SCH ×2 (16:08→22:17)
[2019-04-14] MEDS: Magnesium Hydroxide 400 MG/5 ML Susp 30 ML Cup PO PRN (17:35)
[2019-04-14] MEDS: oxyCODONE 5 MG Tab PO PRN (20:28)
[2019-04-14] MEDS: Enoxaparin 40 MG/0.4 ML Syringe SUBCUT SCH (20:28)
[2019-04-14] MEDS: Sodium Hypochlorite 0.25% Soln 473 ML TOP SCH (21:25)
[2019-04-15] MEDS: Sodium Hypochlorite 0.25% Soln 473 ML TOP SCH (05:49)
[2019-04-15] MEDS: Gabapentin 300 MG Cap PO SCH (06:20)
[2019-04-15] MEDS: Meropenem Premix 1 GM in Premix Bag 1 BAG IV SCH (06:21)
[2019-04-15 07:36] LABS: BLOOD UREA NITROGEN,BUN 6 mg/dL (7.0-18.0); CARBON DIOXIDE,CO2 32.1 mmol/L (21.0-32.0); CHLORIDE,CL 108 mmol/L (98-107); GLUCOSE RANDOM 95 mg/dL (74-106); SODIUM,NA 144 mmol/L (136-148)
[2019-04-15] MEDS ORDERED: Baclofen 10 MG Tab ONE (07:51)
[2019-04-15] MEDS: Methadone 10 MG Tab PO SCH ×2 (07:52→08:39)
[2019-04-15] MEDS: Oxybutynin 5 MG Tab PO SCH ×2 (07:53→09:00)
[2019-04-15] MEDS: DULoxetine 60 MG Cap PO SCH ×2 (07:53→08:39)
[2019-04-15] MEDS: Baclofen 10 MG Tab PO PRN (07:53)
[2019-04-15 08:24] VITALS: BP 125/72; PULSE 63
--- NOTE | 2019-04-15 08:38 | PCM.PN ---
- General Info Date of Service: 04/15/19 Subjective Update: Patient reports sleeping well overnight, tolerating PO diet well and is having bowel movements. - Patient Data Vitals - Most Recent: Last Vital Signs Temp 97.7 F 04/15/19 08:15 Pulse 63 04/15/19 08:15 Resp 16 04/15/19 08:15 BP 125/72 04/15/19 08:15 Pulse Ox 90 L 04/15/19 08:15 Weight - Most Recent: 196 lb 3.382 oz I&O - Last 24 Hours: Intake & Output 04/14/19 04/15/19 04/15/19 22:59 06:59 14:59 Intake Total 1100 780 Output Total 1650 2100 Balance -550 -1320 Lab Results Last 24 Hours: Laboratory Results - last 24 hr 04/14/19 04/14/19 04/14/19 Range/Units 06:00 06:00 21:00 WBC (4.0-11.0) K/uL RBC (4.50-5.90) M/uL Hgb (13.0-17.0) g/dL Hct (38.0-50.0) % MCV (80.0-98.0) fL MCH (27.0-32.0) pg MCHC (31.0-37.0) g/dL RDW Std Deviation (28.0-62.0) fl RDW Coeff of Emy (11.0-15.0) % Plt Count (150-400) K/uL MPV (7.40-12.00) fL Neut % (Auto) (48.0-80.0) % Lymph % (Auto) (16.0-40.0) % Stephenson % (Auto) (0.0-15.0) % Eos % (Auto) (0.0-7.0) % Baso % (Auto) (0.0-1.5) % Neut # (Auto) (1.4-5.7) K/uL Lymph # (Auto) (0.6-2.4) K/uL Stephenson # (Auto) (0.0-0.8) K/uL Eos # (Auto) (0.0-0.7) K/uL Baso # (Auto) (0.0-0.1) K/uL Nucleated RBC % /100WBC Nucleated RBCs # K/uL ESR 40 H (0-19) mm/hr Sodium (136-148) mmol/L Potassium (3.5-5.1) mmol/L Chloride (98-107) mmol/L Carbon Dioxide (21.0-32.0) mmol/L BUN (7.0-18.0) mg/dL Creatinine (0.8-1.3) mg/dL Est Cr Clr Drug Dosing mL/min Estimated GFR (MDRD) ml/min Glucose (74-106) mg/dL Calcium (8.5-10.1) mg/dL Magnesium (1.8-2.4) mg/dL C-Reactive Protein 11.50 H (0.00-0.90) mg/dL Vancomycin Trough 32.3 H (5.0-10.0) ug/mL 04/15/19 04/15/19 04/15/19 Range/Units 07:15 07:15 07:15 WBC 4.15 (4.0-11.0) K/uL RBC 3.99 L (4.50-5.90) M/uL Hgb 11.1 L (13.0-17.0) g/dL Hct 35.1 L (38.0-50.0) % MCV 88.0 (80.0-98.0) fL MCH 27.8 (27.0-32.0) pg MCHC 31.6 (31.0-37.0) g/dL RDW Std Deviation 50.4 (28.0-62.0) fl RDW Coeff of Emy 16 H (11.0-15.0) % Plt Count 191 (150-400) K/uL MPV 9.30 (7.40-12.00) fL Neut % (Auto) 52.1 (48.0-80.0) % Lymph % (Auto) 27.5 (16.0-40.0) % Stephenson % (Auto) 12.0 (0.0-15.0) % Eos % (Auto) 8.2 H (0.0-7.0) % Baso % (Auto) 0.2 (0.0-1.5) % Neut # (Auto) 2.2 (1.4-5.7) K/uL Lymph # (Auto) 1.1 (0.6-2.4) K/uL Stephenson # (Auto) 0.5 (0.0-0.8) K/uL Eos # (Auto) 0.3 (0.0-0.7) K/uL Baso # (Auto) 0.0 (0.0-0.1) K/uL Nucleated RBC % 0.0 /100WBC Nucleated RBCs # 0 K/uL ESR (0-19) mm/hr Sodium 144 (136-148) mmol/L Potassium 4.0 (3.5-5.1) mmol/L Chloride 108 H (98-107) mmol/L Carbon Dioxide 32.1 H (21.0-32.0) mmol/L BUN 6 L (7.0-18.0) mg/dL Creatinine 0.8 (0.8-1.3) mg/dL Est Cr Clr Drug Dosing 110.47 mL/min Estimated GFR (MDRD) > 60.0 ml/min Glucose 95 (74-106) mg/dL Calcium 8.0 L (8.5-10.1) mg/dL Magnesium 1.9 (1.8-2.4) mg/dL C-Reactive Protein (0.00-0.90) mg/dL Vancomycin Trough 17.6 H (5.0-10.0) ug/mL Baldev Results Last 24 Hours: Microbiology 04/10/19 18:59 Aerobic Blood Culture - Preliminary Blood - Venous - Lab Draw NO GROWTH AFTER 4 DAYS Anaerobic Blood Culture - Preliminary NO GROWTH AFTER 4 DAYS 04/10/19 18:48 Aerobic Blood Culture - Preliminary Blood - Venous NO GROWTH AFTER 4 DAYS Anaerobic Blood Culture - Preliminary NO GROWTH AFTER 4 DAYS Med Orders - Current: Current Medications Acetaminophen (Tylenol Extra Strength) 500 mg PO Q6H PRN PRN Reason: Pain Last Admin: 04/11/19 21:58 Dose: 500 mg Acetaminophen/Butalbital/Caffeine (Fioricet 325-50-40 Mg) 1 tab PO Q6H PRN PRN Reason: Headache Last Admin: 04/12/19 13:36 Dose: 1 tab Baclofen (Lioresal) 20 mg PO TID PRN PRN Reason: spasm Last Admin: 04/15/19 07:53 Dose: 20 mg Bisacodyl (Dulcolax) 10 mg PO DAILY PRN PRN Reason: Constipation Docusate Sodium (Colace) 100 mg PO DAILY PRN PRN Reason: Constipation Duloxetine HCl (Cymbalta) 60 mg PO DAILY [facility] Last Admin: 04/15/19 07:53 Dose: 60 mg Enoxaparin Sodium (Lovenox) 40 mg SUBCUT Q24H [facility] Last Admin: 04/14/19 20:28 Dose: 40 mg Gabapentin (Neurontin) 900 mg PO QID [facility] Last Admin: 04/15/19 06:20 Dose: 900 mg Vancomycin HCl 1.25 gm/ Sodium (Chloride) 250 mls @ 166.667 mls/hr IV Q12H [facility] Last Admin: 04/14/19 20:33 Dose: 166.667 mls/hr Meropenem/Sodium Chloride 1 gm (/ Premix) 50 mls @ 100 mls/hr IV Q8H [facility] Last Admin: 04/15/19 06:21 Dose: 100 mls/hr Lactulose (Chronulac) 30 gm PO Q2HR PRN PRN Reason: Constipation Magnesium Hydroxide (Milk Of Magnesia) 30 ml PO Q4H PRN PRN Reason: Constipation Last Admin: 04/14/19 17:35 Dose: 90 ml Methadone HCl (Methadone) 25 mg PO 0900,1400,1900 [facility] Last Admin: 04/15/19 07:52 Dose: 25 mg Oxybutynin Chloride (Oxybutynin) 5 mg PO BID [facility] Last Admin: 04/15/19 07:53 Dose: 5 mg Oxycodone HCl (Oxycodone) 5 mg PO Q4H PRN PRN Reason: Pain Last Admin: 04/14/19 20:28 Dose: 5 mg Pantoprazole Sodium (Protonix) 40 mg PO DAILY PRN PRN Reason: Heartburn Last Admin: 04/14/19 09:36 Dose: 40 mg Promethazine HCl (Phenergan) 25 mg IM Q6H PRN PRN Reason: Nausea Last Admin: 04/12/19 16:56 Dose: 25 mg Sodium Chloride (Saline Flush) 10 ml FLUSH ASDIRECTED PRN PRN Reason: Keep Vein Open Last Admin: 04/10/19 17:35 Dose: 10 ml Sodium Chloride (Saline Flush) 2.5 ml FLUSH ASDIRECTED PRN PRN Reason: Keep Vein Open Last Admin: 04/10/19 17:35 Dose: 2.5 ml Sodium Hypochlorite (Dakin's 1/2 Strength) 10 ml TOP TID [facility] Last Admin: 04/15/19 05:49 Dose: Not Given Sumatriptan Succinate (Imitrex) 6 mg SUBCUT DAILY PRN PRN Reason: Acute Migraine Last Admin: 04/12/19 05:33 Dose: 6 mg Trazodone HCl (Trazodone Hcl) 50 mg PO BEDTIME PRN PRN Reason: Insomnia Vancomycin HCl (Pharmacy To Dose - Vancomycin) 1 dose .XX ASDIRECTED [facility] Discontinued Medications Albuterol/Ipratropium (Duoneb 3.0-0.5 Mg/3 Ml) 3 ml NEB ONETIME ONE Stop: 04/10/19 17:17 Last Admin: 04/10/19 17:34 Dose: 3 ml Albuterol/Ipratropium (Duoneb 3.0-0.5 Mg/3 Ml) 3 ml NEB ONETIME ONE Stop: 04/13/19 08:43 Last Admin: 04/13/19 08:57 Dose: 3 ml Baclofen (Lioresal) Confirm Administered Dose 20 mg .ROUTE .STK-MED ONE Stop: 04/15/19 07:52 Duloxetine HCl (Cymbalta) 60 mg PO DAILY [facility] Last Admin: 04/12/19 08:56 Dose: 60 mg Enoxaparin Sodium (Lovenox) 40 mg SUBCUT Q24H [facility] Last Admin: 04/12/19 01:04 Dose: 40 mg Gabapentin (Neurontin) 900 mg PO QID [facility] Last Admin: 04/12/19 20:21 Dose: Not Given Gabapentin (Neurontin) 900 mg PO ONETIME ONE Stop: 04/12/19 21:16 Last Admin: 04/12/19 21:15 Dose: 900 mg Hydralazine HCl (Apresoline) 5 mg IVPUSH ONETIME ONE Stop: 04/11/19 17:08 Last Admin: 04/11/19 17:51 Dose: 5 mg Sodium Chloride (Normal Saline) 1,000 mls @ 125 mls/hr IV STAT [facility] Last Admin: 04/11/19 00:16 Dose: 125 mls/hr Piperacillin Sod/Tazobactam (Sod 4.5 gm/ Sodium Chloride) 100 mls @ 100 mls/hr IV ONETIME ONE Stop: 04/10/19 20:35 Last Admin: 04/10/19 19:50 Dose: 100 mls/hr Vancomycin HCl 1 gm/ Sodium (Chloride) 250 mls @ 166 mls/hr IV ONETIME ONE Stop: 04/10/19 21:07 Last Admin: 04/10/19 22:36 Dose: 166 mls/hr Piperacillin Sod/Tazobactam (Sod 3.375 gm/ Sodium Chloride) 50 mls @ 100 mls/ hr IV Q6H [facility] Last Admin: 04/12/19 20:59 Dose: Not Given Vancomycin HCl 1.25 gm/ Sodium (Chloride) 250 mls @ 166.667 mls/hr IV Q12H [facility] Last Admin: 04/12/19 20:59 Dose: Not Given Sodium Chloride (Normal Saline (Advbag)) Confirm Administered Dose 250 mls @ as directed .ROUTE .STK-MED ONE Stop: 04/11/19 20:33 Last Admin: 04/11/19 20:36 Dose: Not Given Sodium Chloride (Normal Saline) 1,000 mls @ 50 mls/hr IV ASDIRECTED [facility] Last Admin: 04/13/19 01:21 Dose: 50 mls/hr Vancomycin HCl 1.25 gm/ Sodium (Chloride) 250 mls @ 166.667 mls/hr IV Q12H [facility] Last Admin: 04/12/19 09:09 Dose: 166.667 mls/hr Piperacillin Sod/Tazobactam (Sod 3.375 gm/ Sodium Chloride) 50 mls @ 100 mls/ hr IV Q6H [facility] Last Admin: 04/14/19 14:21 Dose: 100 mls/hr Magnesium Hydroxide (Milk Of Magnesia) 30 ml PO ONETIME ONE Stop: 04/11/19 08:18 Last Admin: 04/11/19 08:51 Dose: 30 ml Methadone HCl (Methadone Intensol) 20 mg PO Q6H [facility] Last Admin: 04/11/19 01:29 Dose: Not Given Methadone HCl (Methadone) 20 mg PO Q6HR [facility] Last Admin: 04/11/19 03:08 Dose: Not Given Methadone HCl (Methadone) 20 mg PO Q6H [facility] Last Admin: 04/11/19 08:51 Dose: 20 mg Methadone HCl (Methadone) 25 mg PO Q8H [facility] Last Admin: 04/12/19 20:20 Dose: Not Given Methadone HCl (Methadone) Confirm Administered Dose 30 mg .ROUTE .STK-MED ONE Stop: 04/12/19 16:09 Last Admin: 04/12/19 19:35 Dose: 30 mg Methadone HCl (Methadone) 25 mg PO Q8H [facility] Last Admin: 04/13/19 06:49 Dose: 25 mg Non-Formulary Medication (Baclofen [Baclofen]) 20 mg PO TID PRN PRN Reason: spasm Oxybutynin Chloride (Oxybutynin) 5 mg PO BID [facility] Last Admin: 04/12/19 08:56 Dose: 5 mg Pantoprazole Sodium (Protonix) 40 mg PO DAILY PRN PRN Reason: Heartburn Last Admin: 04/12/19 06:03 Dose: 40 mg Sumatriptan (Succinate 6 Mg) 1 each SUBCUT DAILY PRN PRN Reason: Acute Migraine Trazodone HCl (Trazodone Hcl) 50 mg PO BEDTIME [facility] Last Admin: 04/14/19 21:25 Dose: Not Given Vancomycin HCl (Vancomycin) Confirm Administered Dose 1.25 gm .ROUTE .STK-MED ONE Stop: 04/11/19 20:32 Last Admin: 04/11/19 20:36 Dose: Not Given - Exam General: Alert, Oriented, Cooperative, No Acute Distress Lungs: Clear to Auscultation Cardiovascular: Regular Rate, Regular Rhythm GI/Abdominal Exam: Normal Bowel Sounds, Soft, Non-Tender, No Abnormal Bruit Extremities: Other (Left leg stump wound dressings are c/d/i.) - Problem List Review Problem List Initiated/Reviewed/Updated: Yes - My Orders Last 24 Hours: My Active Orders 04/14/19 09:23 Transfer Patient (Change bed) [ADT] Routine 04/14/19 12:45 CULTURE WOUND [RM] Stat 04/14/19 15:08 Communication Order [RC] STAT 04/14/19 15:15 Meropenem Premix [Meropenem] 1 gm Premix Bag 1 bag IV Q8H 04/14/19 22:00 Sodium Hypochlorite [Dakin's 1/2 Strength] 10 ml TOP TID - Plan Plan:: Assessment: 1. Suspected acute on chronic hypoxic respiratory failure, improving. 2. Left lower extremity stump wound concerning for osteomyelitis. 3. Hypotension, stable. 4. Leukocytosis, resolved. Plan: 1. Patient is currently on room air and saturating at 89-90%. Will continue to monitor and attempt to wean successfully. Continue to use incentive spirometer. 2. For left lower extremity stump wound, patient has refused MRI multiple times. ESR and CRP are elevated. As per Dr. Crump, continue IV vancomycin and meropenem 1g q8h until final wound culture results and call Dr. Crump on Wednesday for further recommendations. As per Dr. Crump, use dakins 0.125% wet-to -dry dressing changes for the wound three times daily. As per nursing, patient has been refusing the dakins dressings. 3. For hypotension, continue to monitor. Blood pressure has improved and is stable at this time.
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
== END 2019-04-15 11:04 | disposition left against medical advice (07) | DRG 189 ==
LOC: MW.ED 17:08 → MW.ICU 22:42 → UNDODISIN 04-12 14:35
PROVIDERS: ADMIT Internal Medicine; ATTEND Internal Medicine
DX: R09.02 Hypoxemia (principal); J96.21 Acute and chronic respiratory failure with hypoxia; T87.44 Infection of amputation stump, left lower extremity; G43.809 Other migraine, not intractable, without status migrainosus; G82.20 Paraplegia, unspecified; J98.11 Atelectasis; H91.90 Unspecified hearing loss, unspecified ear; K58.1 Irritable bowel syndrome with constipation; K59.2 Neurogenic bowel, not elsewhere classified; J90 Pleural effusion, not elsewhere classified; S32.501A Unspecified fracture of right pubis, initial encounter for closed fracture; K59.09 Other constipation; Z89.512 Acquired absence of left leg below knee; F41.9 Anxiety disorder, unspecified; J96.92 Respiratory failure, unspecified with hypercapnia; F32.9 Major depressive disorder, single episode, unspecified; G89.29 Other chronic pain; Z87.440 Personal history of urinary (tract) infections; Z93.50 Unspecified cystostomy status; M54.2 Cervicalgia; M54.9 Dorsalgia, unspecified; Z96.0 Presence of urogenital implants; Z88.5 Allergy status to narcotic agent; Z86.711 Personal history of pulmonary embolism; Z86.718 Personal history of other venous thrombosis and embolism; Z79.899 Other long term (current) drug therapy; Z99.3 Dependence on wheelchair; W05.0XXA Fall from non-moving wheelchair, initial encounter; Z93.3 Colostomy status
CPT/HCPCS: 36415; 36600; 71045; 71275; 80053; 81001; 82803; 83605; 83880; 84484; 85025; 85610; 87040 ×2; 87086; 87804 ×2; 94640; 96365; 96366; 96375; 99285; J2543; J3370; J7030; J7040; J7050; 51702; 51703; 70450; 70450-26; 73501-26-LT; 73501-26-RT; 73501-LT; 73501-RT; 73700-26-LT; 73700-26-RT; 73700-LT; 73700-RT; 74176; 74176-26; 80048; 80202; 83735; 84100; 85652; 86140; 87070; 93005; A9270-GY; J0360; J1650; J2185; J2550; J3030; J7620-GY

== ENCOUNTER 2019-04-17 02:44 | Observation (INO) | payer MEDICARE, OTHER ==
[2019-04-17] MEDS ORDERED: Sodium Chloride 0.9% 1,000 ML IV SCH ×2 (03:00→04:00)
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
[2019-04-17 03:18] LABS: BLOOD UREA NITROGEN,BUN 6 mg/dL (7.0-18.0); CARBON DIOXIDE,CO2 26.1 mmol/L (21.0-32.0); CHLORIDE,CL 106 mmol/L (98-107); GLUCOSE RANDOM 77 mg/dL (74-106); POTASSIUM,K 3.8 mmol/L (3.5-5.1); SODIUM,NA 142 mmol/L (136-148)
[2019-04-17] MEDS ORDERED: Clindamycin Phosphate in D5W 300 MG in Premix Bag 1 BAG IV ONE ×2 (05:16)
[2019-04-17] MEDS ORDERED: Ondansetron 4 MG/2 ML SDV IVPUSH PRN (08:33)
[2019-04-17] MEDS ORDERED: Acetaminophen 325 MG Tab PO PRN (08:33)
[2019-04-17] MEDS ORDERED: Magnesium Hydroxide 400 MG/5 ML Susp 30 ML Cup PO PRN (08:33)
[2019-04-17] MEDS ORDERED: Ondansetron 4 MG Tab.DIS PO PRN (08:33)
[2019-04-17] MEDS ORDERED: Pantoprazole 40 MG Tab.CR PO PRN (08:36)
[2019-04-17] MEDS ORDERED: Sucralfate 1 GM Tab PO PRN (08:36)
[2019-04-17] MEDS ORDERED: Enoxaparin 40 MG/0.4 ML Syringe SUBCUT SCH (08:45)
[2019-04-17] MEDS ORDERED: [UNRECOGNIZED DRUG - OTHER] TOP SCH (08:45)
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
[2019-04-17] MEDS: Oxybutynin 5 MG Tab PO SCH ×2 (09:08→20:41)
[2019-04-17] MEDS: DULoxetine 60 MG Cap PO SCH (09:08)
[2019-04-17] MEDS: Methadone 10 MG Tab PO SCH ×3 (09:20→20:40)
[2019-04-17] MEDS: Gabapentin 300 MG Cap PO SCH ×3 (12:34→23:28)
[2019-04-17] MEDS: Meropenem Premix 1 GM in Premix Bag 1 BAG IV SCH ×2 (12:34→20:42)
[2019-04-17] MEDS ORDERED: Baclofen 10 MG Tab PO SCH (14:00)
[2019-04-17] MEDS ORDERED: Methadone 10 MG Tab PO SCH (14:00)
[2019-04-17] MEDS: Baclofen 10 MG Tab PO SCH ×2 (15:27→20:41)
[2019-04-17] MEDS ORDERED: Acetaminophen/Butalbital/Caffeine 325-50-40 MG Tab PO ONE (16:18)
[2019-04-17] MEDS ORDERED: traZODone 50 MG Tab PO SCH (21:00)
[2019-04-18] MEDS ORDERED: traMADol 50 MG Tab ONE (03:22)
[2019-04-18] MEDS: Meropenem Premix 1 GM in Premix Bag 1 BAG IV SCH ×2 (05:14→14:00)
[2019-04-18] MEDS ORDERED: Gadobenate Dimeglumine 529 MG/ML 20 ML SDV IVPUSH STA (06:20)
[2019-04-18] MEDS: Gabapentin 300 MG Cap PO SCH ×2 (06:32→12:15)
[2019-04-18 08:02] VITALS: BP 102/66; PULSE 72
[2019-04-18 08:29] LABS: BLOOD UREA NITROGEN,BUN 5 mg/dL (7.0-18.0); CARBON DIOXIDE,CO2 26.2 mmol/L (21.0-32.0); CHLORIDE,CL 106 mmol/L (98-107); GLUCOSE RANDOM 67 mg/dL (74-106); POTASSIUM,K 3.9 mmol/L (3.5-5.1); SODIUM,NA 142 mmol/L (136-148)
[2019-04-18] MEDS: Baclofen 10 MG Tab PO SCH ×2 (09:11→13:59)
[2019-04-18] MEDS: Methadone 10 MG Tab PO SCH ×2 (09:11→13:59)
[2019-04-18] MEDS: DULoxetine 60 MG Cap PO SCH (09:11)
[2019-04-18] MEDS: Oxybutynin 5 MG Tab PO SCH (09:11)
--- NOTE | 2019-04-18 10:20 | MR ---
EXAM DATE: 04/17/19 PATIENT'S AGE: 48 Patient: LYNDSEY LEVINE Facility: [facility] Site Site : [id number] Study: MRI-Extremity Left [id number]/[id number] 7:39:31 AM Ordering Physician: WILLIAM MCCORMACK Final Report: HISTORY: [id number] amputation. Osteomyelitis. TECHNIQUE: MRI left tibia and fibula without and with IV contrast. Per technologist multiple attempts were made to perform the study. Only a portion of the study could be completed. COMPARISON: CT left lower leg 04/11/2018. FINDINGS: There is artifact and heterogeneous fat suppression on the PD FS and post- contrast sequences. Wound in the distal amputation stump wound appears to extend from the skin surface to near the tibia amputation margin. Mild marrow edema in the distal tibia near the amputation margin in no definite osteomyelitis. No osteomyelitis in the fibula. No fluid collection. Severe atrophy of the lower leg musculature. Physiologic quantity of fluid in the knee joint. Mild edema like infiltration of subcutaneous fat. IMPRESSION: 1. Incomplete exam. 2. Amputation stump wound. No fluid collection. Mild infiltration of subcutaneous fat may be cellulitis or subcutaneous edema. 3. Mild marrow edema in the distal tibia without definite osteomyelitis. Dictated by Jony Tillman MD @ Apr 18 2019 7:49AM Signed by: Jony Tillman MD @04/18/2019 8:15:48 AM (Electronic Signature) Report Signed by Proxy. [facility], [place]
--- NOTE | 2019-04-18 11:53 | PCM.PN ---
<Naren Medeiros - Last Filed: 04/18/19 13:09> - General Info Date of Service: 04/18/19 Subjective Update: Reports headache this morning. Tolerating PO diet well and is having bowel movements. - Patient Data Vitals - Most Recent: Last Vital Signs Temp 98.4 F 04/18/19 08:00 Pulse 72 04/18/19 08:00 Resp 16 04/18/19 08:00 BP 102/66 04/18/19 08:00 Pulse Ox 93 L 04/18/19 08:33 Weight - Most Recent: 89 kg I&O - Last 24 Hours: Intake & Output 04/17/19 04/18/19 04/18/19 22:59 06:59 14:59 Intake Total 1080 1220 Output Total 1300 2650 Balance -220 -1430 Lab Results Last 24 Hours: Laboratory Results - last 24 hr 04/18/19 04/18/19 Range/Units 05:28 08:04 WBC 6.11 (4.0-11.0) K/uL RBC 4.19 L (4.50-5.90) M/uL Hgb 11.8 L (13.0-17.0) g/dL Hct 36.6 L (38.0-50.0) % MCV 87.4 (80.0-98.0) fL MCH 28.2 (27.0-32.0) pg MCHC 32.2 (31.0-37.0) g/dL RDW Std Deviation 48.5 (28.0-62.0) fl RDW Coeff of Emy 15 (11.0-15.0) % Plt Count 272 (150-400) K/uL MPV 9.30 (7.40-12.00) fL Neut % (Auto) 54.3 (48.0-80.0) % Lymph % (Auto) 28.5 (16.0-40.0) % [place] % (Auto) 11.5 (0.0-15.0) % Eos % (Auto) 5.4 (0.0-7.0) % Baso % (Auto) 0.3 (0.0-1.5) % Neut # (Auto) 3.3 (1.4-5.7) K/uL Lymph # (Auto) 1.7 (0.6-2.4) K/uL [place] # (Auto) 0.7 (0.0-0.8) K/uL Eos # (Auto) 0.3 (0.0-0.7) K/uL Baso # (Auto) 0.0 (0.0-0.1) K/uL Nucleated RBC % 0.0 /100WBC Nucleated RBCs # 0 K/uL Sodium 142 (136-148) mmol/L Potassium 3.9 (3.5-5.1) mmol/L Chloride 106 (98-107) mmol/L Carbon Dioxide 26.2 (21.0-32.0) mmol/L BUN 5 L (7.0-18.0) mg/dL Creatinine 0.8 (0.8-1.3) mg/dL Est Cr Clr Drug Dosing 110.47 mL/min Estimated GFR (MDRD) > 60.0 ml/min Glucose 67 L (74-106) mg/dL Calcium 8.2 L (8.5-10.1) mg/dL Baldev Results Last 24 Hours: Microbiology 04/17/19 06:55 Aerobic Blood Culture - Preliminary Blood - Venous - Lab Draw NO GROWTH AFTER 1 DAY Anaerobic Blood Culture - Preliminary NO GROWTH AFTER 1 DAY 04/17/19 06:45 Aerobic Blood Culture - Preliminary Blood - Venous NO GROWTH AFTER 1 DAY Anaerobic Blood Culture - Preliminary NO GROWTH AFTER 1 DAY Med Orders - Current: Current Medications Acetaminophen (Tylenol) 650 mg PO Q4H PRN PRN Reason: Pain (Mild 1-3)/fever Baclofen (Lioresal) 20 mg PO DAILY@0900,1500,2100 [facility] Last Admin: 04/18/19 09:11 Dose: 20 mg Duloxetine HCl (Cymbalta) 60 mg PO DAILY [facility] Last Admin: 04/18/19 09:11 Dose: 60 mg Gabapentin (Neurontin) 900 mg PO QID [facility] Last Admin: 04/18/19 06:32 Dose: Not Given Vancomycin HCl 1.25 gm/ Sodium (Chloride) 250 mls @ 166.667 mls/hr IV Q8H [facility] Last Admin: 04/18/19 05:14 Dose: Not Given Meropenem/Sodium Chloride 1 gm (/ Premix) 50 mls @ 100 mls/hr IV Q8H [facility] Last Admin: 04/18/19 05:14 Dose: Not Given Magnesium Hydroxide (Milk Of Magnesia) 30 ml PO Q12H PRN PRN Reason: Constipation Methadone HCl (Methadone) 25 mg PO DAILY@0900,1500,2100 [facility] Last Admin: 04/18/19 09:11 Dose: 25 mg Ondansetron HCl (Zofran Odt) 4 mg PO Q4H PRN PRN Reason: nausea, able to take PO Ondansetron HCl (Zofran) 4 mg IVPUSH Q4H PRN PRN Reason: Nausea Oxybutynin Chloride (Oxybutynin) 5 mg PO BID [facility] Last Admin: 04/18/19 09:11 Dose: 5 mg Pantoprazole Sodium (Protonix) 40 mg PO DAILY PRN PRN Reason: Heartburn Ostomy Supply [Adapt (Paste] 1 Applic) 1 each TOP ASDIRECTED [facility] Sucralfate (Carafate) 1 gm PO TID PRN PRN Reason: abdominal burning Trazodone HCl (Trazodone) 450 mg PO BEDTIME [facility] Last Admin: 04/17/19 20:56 Dose: 450 mg Vancomycin HCl (Pharmacy To Dose - Vancomycin) 1 dose .XX ASDIRECTED [facility] Zaleplon (Sonata) 5 mg PO BEDTIME PRN PRN Reason: Insomnia Last Admin: 04/17/19 20:58 Dose: 5 mg Discontinued Medications Acetaminophen/Butalbital/Caffeine (Fioricet 325-50-40 Mg) 1 tab PO ONETIME ONE Stop: 04/17/19 16:19 Last Admin: 04/17/19 16:38 Dose: 1 tab Baclofen (Lioresal) 20 mg PO TID [facility] Last Admin: 04/17/19 14:38 Dose: Not Given Enoxaparin Sodium (Lovenox) 40 mg SUBCUT Q24H [facility] Gadobenate Dimeglumine (Multihance) 20 ml IVPUSH ONETIME STA Stop: 04/18/19 06:21 Last Admin: 04/18/19 06:31 Dose: 17 ml Sodium Chloride (Normal Saline) 1,000 mls @ 999 mls/hr IV ASDIRECTED [facility] Last Admin: 04/17/19 03:03 Dose: 999 mls/hr Sodium Chloride (Normal Saline) 1,000 mls @ 125 mls/hr IV STAT [facility] Last Admin: 04/17/19 04:02 Dose: 125 mls/hr Vancomycin HCl 1 gm/ Sodium (Chloride) 250 mls @ 166 mls/hr IV ONETIME ONE Stop: 04/17/19 06:03 Last Admin: 04/17/19 04:53 Dose: 166 mls/hr Clindamycin Phosphate 300 mg/ (Sodium Chloride) 52 mls @ 100 mls/hr IV ONETIME ONE Stop: 04/17/19 05:05 Last Admin: 04/17/19 05:17 Dose: Not Given Clindamycin Phosphate 300 mg/ (Premix) 50 mls @ 150 mls/hr IV ONETIME ONE Stop: 04/17/19 05:35 Last Admin: 04/17/19 06:55 Dose: 150 mls/hr Methadone HCl (Methadone) 25 mg PO TID [facility] Tramadol HCl (Ultram) Confirm Administered Dose 50 mg .ROUTE .STK-MED ONE Stop: 04/18/19 03:23 Last Admin: 04/18/19 05:14 Dose: Not Given Trazodone HCl (Trazodone Hcl) 450 mg PO BEDTIME MARYELLEN - Exam HEENT: Other (normocephalic, atraumatic) Lungs: Clear to Auscultation, Normal Respiratory Effort Cardiovascular: Regular Rate, Regular Rhythm Extremities: Other (Left leg stump wound dressings c/d/i.) - Problem List Review Problem List Initiated/Reviewed/Updated: Yes - My Orders Last 24 Hours: My Active Orders 04/17/19 11:53 Communication Order [RC] STAT 04/17/19 12:00 Gabapentin [Neurontin] 900 mg PO QID Meropenem Premix [Meropenem] 1 gm Premix Bag 1 bag IV Q8H 04/17/19 15:00 Baclofen [Lioresal] 20 mg PO DAILY@0900,1500,2100 04/17/19 21:00 traZODone 450 mg PO BEDTIME - Plan Plan:: Assessment: 1. Left leg stump wound concerning for osteomyelitis. 2. Blurry vision s/p fall. Plan: 1. For left leg stump wound, prior to leaving [place] on 04/15/19, infectious disease specialist Dr. Crump was contact who recommended IV vancomycin and IV meropenem. Dakins 0.125% wet-to-dry dressing changes TID. CT of leg leg stump on 04/11/19 showed cortical erosion of tibia at amputations site suspicious for osteomyelitis. Wound cultures returned negative for any growth. Will order MRI today. Will contact Dr. Crump after MRI for further recommendations. 3. For blurry vision s/p fall, CT head 04/11/19 from previous admission showed no acute intracranial process. <Rubén Frazier - Last Filed: 04/19/19 20:23> - Patient Data Vitals - Most Recent: Last Vital Signs Temp 36.9 C 04/18/19 08:00 Pulse 72 04/18/19 08:00 Resp 16 04/18/19 08:00 BP 102/66 04/18/19 08:00 Pulse Ox 93 L 04/18/19 08:33 Baldev Results Last 24 Hours: Microbiology 04/17/19 06:55 Aerobic Blood Culture - Preliminary Blood - Venous - Lab Draw NO GROWTH AFTER 2 DAYS Anaerobic Blood Culture - Preliminary NO GROWTH AFTER 2 DAYS 04/17/19 06:45 Aerobic Blood Culture - Preliminary Blood - Venous NO GROWTH AFTER 2 DAYS Anaerobic Blood Culture - Preliminary NO GROWTH AFTER 2 DAYS Med Orders - Current: Current Medications Discontinued Medications Acetaminophen (Tylenol) 650 mg PO Q4H PRN PRN Reason: Pain (Mild 1-3)/fever Acetaminophen/Butalbital/Caffeine (Fioricet 325-50-40 Mg) 1 tab PO ONETIME ONE Stop: 04/17/19 16:19 Last Admin: 04/17/19 16:38 Dose: 1 tab Baclofen (Lioresal) 20 mg PO TID [facility] Last Admin: 04/17/19 14:38 Dose: Not Given Baclofen (Lioresal) 20 mg PO DAILY@0900,1500,2100 [facility] Last Admin: 04/18/19 13:59 Dose: 20 mg Duloxetine HCl (Cymbalta) 60 mg PO DAILY [facility] Last Admin: 04/18/19 09:11 Dose: 60 mg Enoxaparin Sodium (Lovenox) 40 mg SUBCUT Q24H [facility] Gabapentin (Neurontin) 900 mg PO QID [facility] Last Admin: 04/18/19 12:15 Dose: 900 mg Gadobenate Dimeglumine (Multihance) 20 ml IVPUSH ONETIME STA Stop: 04/18/19 06:21 Last Admin: 04/18/19 06:31 Dose: 17 ml Sodium Chloride (Normal Saline) 1,000 mls @ 999 mls/hr IV ASDIRECTED [facility] Last Admin: 04/17/19 03:03 Dose: 999 mls/hr Sodium Chloride (Normal Saline) 1,000 mls @ 125 mls/hr IV STAT [facility] Last Admin: 04/17/19 04:02 Dose: 125 mls/hr Vancomycin HCl 1 gm/ Sodium (Chloride) 250 mls @ 166 mls/hr IV ONETIME ONE Stop: 04/17/19 06:03 Last Admin: 04/17/19 04:53 Dose: 166 mls/hr Clindamycin Phosphate 300 mg/ (Sodium Chloride) 52 mls @ 100 mls/hr IV ONETIME ONE Stop: 04/17/19 05:05 Last Admin: 04/17/19 05:17 Dose: Not Given Clindamycin Phosphate 300 mg/ (Premix) 50 mls @ 150 mls/hr IV ONETIME ONE Stop: 04/17/19 05:35 Last Admin: 04/17/19 06:55 Dose: 150 mls/hr Vancomycin HCl 1.25 gm/ Sodium (Chloride) 250 mls @ 166.667 mls/hr IV Q8H [facility] Last Admin: 04/18/19 13:21 Dose: Not Given Meropenem/Sodium Chloride 1 gm (/ Premix) 50 mls @ 100 mls/hr IV Q8H [facility] Last Admin: 04/18/19 14:00 Dose: Not Given Magnesium Hydroxide (Milk Of Magnesia) 30 ml PO Q12H PRN PRN Reason: Constipation Methadone HCl (Methadone) 25 mg PO TID [facility] Methadone HCl (Methadone) 25 mg PO DAILY@0900,1500,2100 [facility] Last Admin: 04/18/19 13:59 Dose: 25 mg Ondansetron HCl (Zofran Odt) 4 mg PO Q4H PRN PRN Reason: nausea, able to take PO Ondansetron HCl (Zofran) 4 mg IVPUSH Q4H PRN PRN Reason: Nausea Oxybutynin Chloride (Oxybutynin) 5 mg PO BID [facility] Last Admin: 04/18/19 09:11 Dose: 5 mg Pantoprazole Sodium (Protonix) 40 mg PO DAILY PRN PRN Reason: Heartburn Ostomy Supply [Adapt (Paste] 1 Applic) 1 each TOP ASDIRECTED [facility] Sucralfate (Carafate) 1 gm PO TID PRN PRN Reason: abdominal burning Tramadol HCl (Ultram) Confirm Administered Dose 50 mg .ROUTE .STK-MED ONE Stop: 04/18/19 03:23 Last Admin: 04/18/19 05:14 Dose: Not Given Trazodone HCl (Trazodone Hcl) 450 mg PO BEDTIME [facility] Trazodone HCl (Trazodone) 450 mg PO BEDTIME [facility] Last Admin: 04/17/19 20:56 Dose: 450 mg Vancomycin HCl (Pharmacy To Dose - Vancomycin) 1 dose .XX ASDIRECTED [facility] Zaleplon (Sonata) 5 mg PO BEDTIME PRN PRN Reason: Insomnia Last Admin: 04/17/19 20:58 Dose: 5 mg - Plan Plan:: I have seen and evaluated the patient and agree with the residents note unless specified in my note
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
--- NOTE | 2019-04-18 14:06 | PCM.SN ---
- Free Text/Narrative Note: Called to patient room for IV start. APOLINAR Winters attempted x 3 without success. APOLINAR Simpson attempted x 2 with ultrasound without success. EMS here to transport patient and patient states its ok to stop and patient RN also said that MD said it's ok if a new IV is not obtained prior to transport.
== END 2019-04-18 14:15 ==
LOC: MW.ED 02:44 → MW.MS 05:00
PROVIDERS: ADMIT Student in an Organized Health Care Education/Training Program; ATTEND Student in an Organized Health Care Education/Training Program
DX: E86.0 Dehydration (principal); T87.89 Other complications of amputation stump; H53.8 Other visual disturbances; K58.9 Irritable bowel syndrome, unspecified; G43.909 Migraine, unspecified, not intractable, without status migrainosus; F41.9 Anxiety disorder, unspecified; F32.9 Major depressive disorder, single episode, unspecified; W05.0XXA Fall from non-moving wheelchair, initial encounter; Z89.612 Acquired absence of left leg above knee; Z88.5 Allergy status to narcotic agent; Z79.899 Other long term (current) drug therapy
CPT/HCPCS: 36415; 73720; 80048; 80053; 80202; 81001; 85025; 87040; 96361; 96374; 99285; A9270; A9577; J2185; J3370; J3490; J7040; J7050

== ENCOUNTER 2019-08-16 06:34 | Day surgery (SDC) | payer MEDICARE, OTHER ==
[2019-08-16] MEDS ORDERED: Ondansetron 4 MG/2 ML SDV ONE (07:15)
[2019-08-16] MEDS ORDERED: Midazolam 1 MG/ML 2 ML SDV ONE (07:15)
[2019-08-16] MEDS ORDERED: Propofol 200 MG/20 ML SDV ONE (07:15)
[2019-08-16] MEDS ORDERED: fentaNYL 100 MCG/2 ML SDV ONE (07:15)
[2019-08-16] MEDS ORDERED: Bupivacaine 0.5%/EPINEPHrine 1:200,000 10 ML SDV ONE (07:20)
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
[2019-08-16] MEDS ORDERED: hydrALAZINE 20 MG/ML SDV ONE (07:45)
[2019-08-16] MEDS: Lactated Ringers 1,000 ML IV SCH (07:59)
[2019-08-16] MEDS ORDERED: Vancomycin 1 GM SDV ONE (08:14)
[2019-08-16] MEDS ORDERED: Glycopyrrolate 0.2 MG/ML SDV ONE (09:16)
[2019-08-16] MEDS ORDERED: Sodium Chloride 0.9% 20 ML ONE (09:19)
[2019-08-16] MEDS ORDERED: ceFAZolin 1 GM Vial ONE (09:19)
[2019-08-16] MEDS ORDERED: Acetaminophen/oxyCODONE 325-5 MG Tab PO PRN (09:41)
[2019-08-16] MEDS ORDERED: Sodium Chloride 0.9% 2.5 ML Syringe FLUSH PRN (09:41)
[2019-08-16] MEDS ORDERED: Sodium Chloride 0.9% 10 ML Syringe FLUSH PRN (09:41)
--- NOTE | 2019-08-16 10:31 | PCM.OPNOTE ---
- General Post-Op/Procedure Note Date of Surgery/Procedure: 08/16/19 Operative Procedure(s): revision of below knee amputation. removal of skin, subcutaneous tissue, bone. irrigation and debridement ulcer. culture and sensitivity, gram stain, tissue sample Pre Op Diagnosis: left tibial osteomyelitis. ulceration of bka stump Post-Op Diagnosis: Same Anesthesia Technique: Combo Spinal/Epidural, Moderate Sedation Primary Surgeon: Rojas Arias Anesthesia Provider: Jose Block Bullion Weigher: Sandhya Campos Pathology: culture of distal stump ulcer distal tibia EBL in mLs: 50 Complications: None Condition: Good Free Text/Narrative:: Intake & Output 08/15/19 08/16/19 08/16/19 22:59 06:59 14:59 Output Total 75 Balance -75
--- NOTE | 2019-08-16 11:19 | PCM.POSTAN ---
POST ANESTHESIA ASSESSMENT - MENTAL STATUS Mental Status: Alert, Oriented - VITAL SIGNS Vital Signs: Last Vital Signs Temp 96.8 F L 08/16/19 09:31 Pulse 60 08/16/19 11:09 Resp 20 08/16/19 11:09 BP 91/30 L 08/16/19 11:09 Pulse Ox 96 08/16/19 11:09 - RESPIRATORY Respiratory Status: Respiratory Rate WNL, Airway Patent, O2 Saturation Stable - CARDIOVASCULAR CV Status: Pulse Rate WNL, Blood Pressure Stable - GASTROINTESTINAL GI Status: No Symptoms - PAIN Pain Score: 0 - POST OP HYDRATION Hydration Status: Adequate & Stable - OBSERVATIONS Free Text/Narrative:: Ortho has/will consult hospitalist for management of pain medication and sleep apnea. Pt currently stable and awake. No apparent anesthesia complications.
[2019-08-16] MEDS ORDERED: Lactated Ringers 1,000 ML IV ONE (12:45)
[2019-08-16] MEDS ORDERED: Pantoprazole 40 MG Tab.CR PO PRN (12:55)
[2019-08-16] MEDS ORDERED: SUMATRIPTAN SUCCINATE 6 MG SUBCUT PRN (12:55)
[2019-08-16] MEDS ORDERED: Sucralfate 1 GM Tab PO PRN ×2 (12:55→13:45)
[2019-08-16] MEDS ORDERED: Fludrocortisone 0.1 MG Tab PO PRN ×2 (12:55→13:18)
[2019-08-16] MEDS ORDERED: [UNRECOGNIZED DRUG - OTHER] TOP SCH (13:00)
[2019-08-16] MEDS ORDERED: Ferrous Sulfate 325 MG Tab PO SCH (13:00)
[2019-08-16] MEDS ORDERED: DULoxetine 60 MG Cap PO SCH (13:00)
[2019-08-16] MEDS ORDERED: Magnesium Hydroxide 400 MG/5 ML Susp 30 ML Cup PO SCH (13:00)
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
[2019-08-16] MEDS ORDERED: Gabapentin 300 MG Cap PO SCH (14:00)
[2019-08-16] MEDS ORDERED: Mupirocin Oint 22 GM Tube TOP PRN (14:00)
[2019-08-16] MEDS: Ferrous Sulfate 325 MG Tab PO SCH (14:44)
[2019-08-16] MEDS: DULoxetine 60 MG Cap PO SCH (14:44)
[2019-08-16] MEDS: Gabapentin 300 MG Cap PO SCH ×2 (14:44→18:44)
[2019-08-16] MEDS: Oxybutynin 5 MG Tab PO SCH ×2 (14:44→18:45)
[2019-08-16] MEDS ORDERED: Methadone 10 MG Tab PO PRN (14:46)
--- NOTE | 2019-08-16 16:29 | OR ---
SURGEON: Rojas Arias DATE OF PROCEDURE: 08/16/2019 PREOPERATIVE DIAGNOSES: Left tibial osteomyelitis and ulceration of distal below-knee amputation stump. POSTOPERATIVE DIAGNOSES: Left tibial osteomyelitis and ulceration of distal below-knee amputation stump. PROCEDURES: 1. Revision of below-knee amputation, left lower extremity. 2. Irrigation and debridement of distal ulcer at stump. 3. Application of 10 cm x 20 cm incisional wound VAC. PRIMARY SURGEON: Rojas Arias DO FURNACE SETTER: ULYSSES Moya ROLE OF FURNACE SETTER: Nurse practitioner, ULYSSES Moya, played an essential role in assisting in this case, helping to position the patient, retract structures as needed, as well as suturing and cutting sutures as indicated. Her presence improved patient's safety and decreased operative time. ANESTHESIA: Jose Block CRNA, spinal plus conscious sedation. FLUID: Lactated Ringer's solution. ESTIMATED BLOOD LOSS: 50 mL. COMPLICATIONS: None. SPECIMENS: Culture of ulceration and distal tibia for tissue specimen. DISCHARGE DISPOSITION: Stable to PACU. HISTORY AND INDICATIONS FOR THE PROCEDURE: The patient was seen preoperatively in the clinic. Preoperative imaging confirmed the above-mentioned diagnoses. Risks and goals of the procedure were explained to the patient. Informed consent was obtained. DETAILS OF PROCEDURE: The patient was seen preoperatively by myself and the Anesthesia staff in the preoperative holding area where operative site was marked. He was brought to the operative suite by Anesthesia staff where spinal sedation plus conscious sedation were administered. All extremities were found to be well padded. The left lower extremity was then prepped and draped in a sterile manner. Time-out was called identifying the correct patient, the correct procedure, the correct site, and that antibiotics had been given within appropriate period of time. I made an elliptical incision around the ulceration and carried the incision deep to it, removing all the tissue en bloc. I then passed off those instruments that was submitted for culture. I then made an incision into the previous incision of the stump and then felt for the distal tibia. I then incised through the scar tissue at the distal tibia and then used a large elevator and a knife to go around the tibia for excision. I had to open the skin incision up just a little bit more. I then used an [employer] and sawed off approximately the distal 4 cm of the tibia, which should have included all of the bone in question for tibial osteomyelitis seen on the MRI. I copiously irrigated with pulse lavage and then Betadine-soaked irrigation and then applied Avitene to the distal tibial shaft. I had already curetted some of the marrow out to prevent further drainage. I then applied vancomycin powder. I then closed the subcutaneous area with 2-0 Vicryl sutures to allow decreased tension on the skin. I then closed the medial aspect of the incision with 2-0 nylon horizontal mattresses because this had increased tension on it and then the lateral portion with 3-0 nylon horizontal mattress sutures. I then applied two vertical mattress sutures in an area of increased tension. We then used wet and dry to clean the distal stump and held some pressure over it to allow for increased coagulation. I applied benzoin and then applied my 10 x 20 cm MICHAEL wound VAC. The patient was allowed to awaken from general anesthesia and taken to the PACU in stable condition. [id number] / MODL /[id number]
[2019-08-16] MEDS: ceFAZolin 2 GM in Premix Bag 1 BAG IV SCH (17:25)
[2019-08-16] MEDS ORDERED: Oxybutynin 5 MG Tab PO SCH ×2 (18:00→21:00)
[2019-08-16] MEDS ORDERED: traZODone 50 MG Tab PO SCH (21:00)
[2019-08-16] MEDS: Methadone 10 MG Tab PO SCH (21:06)
[2019-08-17] MEDS: ceFAZolin 2 GM in Premix Bag 1 BAG IV SCH ×2 (00:54→10:37)
[2019-08-17] MEDS: Lactated Ringers 1,000 ML IV SCH (00:54)
[2019-08-17] MEDS ORDERED: Sodium Chloride 0.9% 1,000 ML IV ONE (05:51)
[2019-08-17] MEDS: Methadone 10 MG Tab PO SCH (06:12)
[2019-08-17] MEDS ORDERED: Magnesium Hydroxide 400 MG/5 ML Susp 30 ML Cup PO SCH ×2 (08:00)
[2019-08-17] MEDS ORDERED: DULoxetine 60 MG Cap PO SCH ×2 (08:00→08:15)
[2019-08-17] MEDS ORDERED: Gabapentin 300 MG Cap PO SCH (08:08)
[2019-08-17] MEDS ORDERED: Fludrocortisone 0.1 MG Tab PO PRN (08:08)
[2019-08-17] MEDS ORDERED: Patient's Own Medication 1 Each PO PRN (08:15)
[2019-08-17] MEDS ORDERED: FERROUS SULFATE 325 MG PO SCH (08:15)
[2019-08-17] MEDS: Gabapentin 300 MG Cap PO SCH (08:53)
[2019-08-17] MEDS: Ferrous Sulfate 325 MG Tab PO SCH (08:53)
[2019-08-17] MEDS: DULoxetine 60 MG Cap PO SCH (08:53)
[2019-08-17] MEDS: Oxybutynin 5 MG Tab PO SCH (08:54)
[2019-08-17] MEDS ORDERED: Cephalexin 500 MG Cap PO SCH (09:00)
--- NOTE | 2019-08-17 10:21 | PCM48HPAN ---
Post Anesthesia Note - EVALUATION WITHIN 48HRS OF ANESTHETIC Vital Signs in Normal Range: Yes Patient Participated in Evaluation: Yes Respiratory Function Stable: Yes Airway Patent: Yes Cardiovascular Function Stable: Yes Hydration Status Stable: Yes Pain Control Satisfactory: Yes Nausea and Vomiting Control Satisfactory: Yes Mental Status Recovered: Yes Vital Signs: Last Vital Signs Temp 36.4 C 08/17/19 05:00 Pulse 65 08/17/19 05:00 Resp 18 08/17/19 05:00 BP 80/40 L 08/17/19 05:20 Pulse Ox 93 L 08/17/19 05:00 - COMMENTS/OBSERVATIONS Free Text/Narrative:: Doing well.
[2019-08-17 11:55] VITALS: BP 101/57; PULSE 64
[2019-08-17] MEDS ORDERED: Methadone 10 MG Tab PO SCH (14:00)
--- NOTE | 2019-08-17 14:08 | PCM.SURGPN ---
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 Denies: Fever Pulmonary: Denies: Shortness of Breath Cardiovascular: Denies: Chest Pain Gastrointestinal: Denies: Abdominal Pain Musculoskeletal: Reports: No Symptoms Psychiatric: Reports: Other (wanting to go home, stating he would not wait to be seen by Dr. Arias at noon, stating he was going home this morning.) - Patient Data Vitals - Most Recent: Last Vital Signs Temp 36.3 C 08/17/19 08:00 Pulse 64 08/17/19 08:00 Resp 18 08/17/19 08:00 BP 101/57 L 08/17/19 08:00 Pulse Ox 90 L 08/17/19 08:00 Weight - Most Recent: 81.647 kg I&O - Last 24 Hours: Intake & Output 08/16/19 08/17/19 08/17/19 22:59 06:59 14:59 Intake Total 980 680 Output Total 1450 2150 Balance -470 -1470 Lab Results Last 24 Hrs: Laboratory Results - last 24 hr 08/17/19 Range/Units 05:48 Hgb 11.9 L (13.0-17.0) g/dL Hct 39.0 (38.0-50.0) % Med Orders - Current: Current Medications Discontinued Medications Bupivacaine HCl/Epinephrine Bitart (Marcaine 0.5%/Epinephrine 1:200,000) Confirm Administered Dose 10 ml .ROUTE .STK-MED ONE Stop: 08/16/19 07:21 Cefazolin Sodium (Ancef) Confirm Administered Dose 2 gm .ROUTE .STK-MED ONE Stop: 08/16/19 09:20 Cephalexin (Keflex) 500 mg PO Q8H [facility] Stop: 08/24/19 09:01 Last Admin: 08/17/19 09:48 Dose: 500 mg Duloxetine HCl (Cymbalta) 60 mg PO DAILY [facility] Last Admin: 08/16/19 14:46 Dose: Not Given Duloxetine HCl (Cymbalta) 60 mg PO DAILY@0800 [facility] Duloxetine HCl (Cymbalta) 60 mg PO DAILY@0800 [facility] Last Admin: 08/17/19 08:53 Dose: Not Given Fentanyl (Sublimaze) Confirm Administered Dose 100 mcg .ROUTE .STK-MED ONE Stop: 08/16/19 07:16 Ferrous Sulfate (Ferrous Sulfate) 325 mg PO DAILY [facility] Last Admin: 08/16/19 14:46 Dose: Not Given Ferrous Sulfate (Ferrous Sulfate) 325 mg PO DAILY@0800 [facility] Last Admin: 08/17/19 08:53 Dose: Not Given Fludrocortisone Acetate (Florinef) 0.05 - 0.1 mg PO ASDIRECTED PRN PRN Reason: Hypotension Fludrocortisone Acetate (Florinef) 0.05 - 0.1 mg PO DAILY@0800 PRN PRN Reason: Hypotension Gabapentin (Neurontin) 1,200 mg PO TID [facility] Gabapentin (Neurontin) 1,200 mg PO TID@0800,1400,1800 [facility] Last Admin: 08/17/19 08:53 Dose: Not Given Glycopyrrolate (Robinul) Confirm Administered Dose 0.2 mg .ROUTE .STK-MED ONE Stop: 08/16/19 09:17 Hydralazine HCl (Apresoline) Confirm Administered Dose 20 mg .ROUTE .STK-MED ONE Stop: 08/16/19 07:46 Lactated Ringer's (Ringers, Lactated) 1,000 mls @ 100 mls/hr IV ASDIRECTED [facility] Last Admin: 08/17/19 00:54 Dose: 100 mls/hr Sodium Chloride (Normal Saline) Confirm Administered Dose 20 mls @ as directed .ROUTE .STK-MED ONE Stop: 08/16/19 09:20 Cefazolin Sodium/Dextrose 2 gm (/ Premix) 50 mls @ 100 mls/hr IV Q8H [facility] Last Admin: 08/17/19 10:37 Dose: Not Given Lactated Ringer's (Ringers, Lactated) 1,000 mls @ 1,000 mls/hr IV .BOLUS ONE Stop: 08/16/19 13:44 Last Admin: 08/16/19 13:22 Dose: 1,000 mls/hr Sodium Chloride (Normal Saline) 1,000 mls @ 999 mls/hr IV .Bolus ONE Stop: 08/17/19 06:51 Last Admin: 08/17/19 06:08 Dose: 999 mls/hr Lidocaine HCl (Xylocaine-Mpf 1%) Confirm Administered Dose 5 ml .ROUTE .[place]-MED ONE Stop: 08/16/19 07:29 Magnesium Hydroxide (Milk Of Magnesia) 60 ml PO DAILY [facility] Last Admin: 08/16/19 14:46 Dose: Not Given Magnesium Hydroxide (Milk Of Magnesia) 60 ml PO DAILY@0800 [facility] Methadone HCl (Methadone) 25 mg PO TID [facility] Last Admin: 08/17/19 06:12 Dose: Not Given Methadone HCl (Methadone) 10 mg PO Q4H PRN PRN Reason: Breakthrough Pain Midazolam HCl (Versed 1 Mg/Ml) Confirm Administered Dose 2 mg .ROUTE .[facility] ONE Stop: 08/16/19 07:16 Mupirocin (Bactroban Oint) 0 gm TOP TID@0800,1400,1800 PRN PRN Reason: Wound Care Ondansetron HCl (Zofran) Confirm Administered Dose 4 [facility] Stop: 08/16/19 07:16 Oxybutynin Chloride (Oxybutynin) 5 mg PO BID [facility] Oxybutynin Chloride (Oxybutynin) 5 mg PO BID@0800,1800 [facility] Oxybutynin Chloride (Oxybutynin) 5 mg PO BID@0800,1800 [facility] Last Admin: 08/17/19 08:54 Dose: Not Given Oxycodone/Acetaminophen (Percocet 325-5 Mg) 1 - 2 tab PO Q4H PRN PRN Reason: Pain Pantoprazole Sodium (Protonix) 40 mg PO ACBREAKFAST PRN PRN Reason: Heartburn Ostomy Supply [Adapt (Paste] 1 Applic) 1 each TOP ASDIRECTED [facility] Sumatriptan Succinate [ Sumatriptan Succinate] 6 Mg 6 each SUBCUT DAILY PRN PRN Reason: Acute Migraine Zolpidem 5 Mg 1 each PO BEDTIME PRN PRN Reason: Insomnia Zolpidem 5 Mg 1 each PO BEDTIME@1800 PRN PRN Reason: Insomnia Magnesium Hydroxide 400 Mg/5 Ml Susp 30 Ml Cup 1 each PO DAILY@0800 [facility] Last Admin: 08/17/19 08:28 Dose: Not Given Duloxetine 60 Mg Cap 60 each PO DAILY@0800 [facility] Last Admin: 08/17/19 08:28 Dose: Not Given Ferrous Sulfate 325 (Mg) 1 each PO DAILY@0800 [facility] Last Admin: 08/17/19 08:28 Dose: Not Given Fludrocortisone 0.1 (Mg Tab) 0.05 - 0.1 each PO DAILY@0800 PRN PRN Reason: Hypotension Gabapentin 300 Mg (Cap) 1 each PO TID@0800,1400,1800 [facility] Methadone 10 Mg Tab 2.5 each PO TID [facility] Oxybutynin 5 Mg Tab 1 each PO BID@0800,1800 [facility] Patient Own Medication (Ptom) 1 each PO ACBREAKFAST PRN PRN Reason: Heartburn Propofol (Diprivan 20 Ml) Confirm Administered Dose 200 mg .ROUTE .STK-MED ONE Stop: 08/16/19 07:16 Sodium Chloride (Saline Flush) 10 ml FLUSH ASDIRECTED PRN PRN Reason: Keep Vein Open Sodium Chloride (Saline Flush) 2.5 ml FLUSH ASDIRECTED PRN PRN Reason: Keep Vein Open Sucralfate (Carafate) 1 gm PO TID PRN PRN Reason: abdominal burning Sucralfate (Carafate) 1 gm PO TID@0800,1400,1800 PRN PRN Reason: abdominal burning Trazodone HCl (Trazodone Hcl) 300 mg PO BEDTIME@1800 [facility] Trazodone HCl (Trazodone Hcl) 300 mg PO BEDTIME [facility] Trazodone HCl (Trazodone) 300 mg PO BEDTIME [facility] Last Admin: 08/16/19 21:08 Dose: Not Given Vancomycin HCl (Vancomycin) Confirm Administered Dose 1 gm .ROUTE .STK-MED ONE Stop: 08/16/19 08:15 Vancomycin HCl (Vancomycin) 125 mg PO BID [facility] Stop: 08/24/19 21:01 - Exam Wound/Incisions: Dressing Dry and Intact (Wound Vac dressing demonstrating adequate seal with no drainage in canister), Other (incision to BKA approximated with sutures. ). No: Erythema Quality Assessment: Urine Catheter (indwelling catheter), DVT Prophylaxis (SCD LLE), Skin Breakdown (egg crate mattress on bed) General: Alert, Oriented, Cooperative, No Acute Distress HEENT: Pupils Equal Lungs: Normal Respiratory Effort Cardiovascular: Regular Rate GI/Abdominal Exam: Soft Extremities: Other (Lt BKA with Wound vac dressing. No surrounding erythema. No acute swelling. ) Skin: Warm, Dry Neurological: Normal Speech Psy/Mental Status: Alert Sepsis Event Note - Evaluation Sepsis Screening Result: No Definite Risk - Focused Exam Vital Signs: Vital Signs Temp Pulse Resp BP Pulse Ox 08/17/19 08:00 36.3 C 64 18 101/57 L 90 L 08/17/19 05:20 80/40 L 08/17/19 05:00 36.4 C 65 18 88/59 L 93 L Date Exam was Performed: 08/17/19 Time Exam was Performed: 14:03 - Problem List Review Problem List Initiated/Reviewed/Updated: Yes - My Orders Last 24 Hours: Active Orders 24 hr Category Date Time Status Ready for Discharge [RC] PER UNIT ROUTINE Care 08/17/19 09:05 Active Convert IV to Saline Lock [OM.PC] PRN Oth 08/17/19 09:45 Ordered - Assessment Assessment (Free Text/Narrative):: 1) s/p BKA revision with application of wound vac 2) post-procedural anemia. - Plan Plan (Free Text/Narrative):: Yesterday, at 1300, d/t single use [id number] MICHAEL wound vac dressing being saturated (which was applied in the OR), this was removed and a new wound vac attached to a collection canister was applied. At 1500, I received phone call that the wound vac system was detecting a leak. Nurse reinforced the edges, but system continued to demonstrate an adequate seal as foam padding was still compressed. There was no drainage present in the tubing and suspected it was plugged. New wound vac was reapplied and functioning well. This morning, wound vac still intact with adequate seal. No drainage collected in the canister. Pt insistent on going home this morning. He had no acute concerns. Afebrile. Dr. Arias received phone call early this morning d/t low blood pressure. Review of his BPs shows that he does run a low BP 90-low 100s/50. Asymptomatic this morning. Denies dizziness or feeling light headed. Tolerating food/fluids. He has Rx for Methadone, resumed for his pain control. He denies any concerns with pain this morning. Tells me that I do not need to print his medication list, as he is well aware of his medications and refused to take medications per nursing staff as he brought his own pills to the hospital. Antibiotic coverage : Ancef 2gm q8h DVT prophylaxis : SCD nonoperative leg. As he insisted on being discharged this morning, without waiting for Dr. Arias to make rounds at noon, I called Dr. Arias to verify discharge plans. 1) Wound Vac attached to disposable canister was removed. Very minimal drainage in foam pad. Incision well approximated with sutures with no erythema, but small amount of bloody drainage. Single use [id number] dressing was applied, connected to portable vacuum which indicated adequate seal as evidenced by blinking of the green 'go' light. He will return to ortho clinic next week Wednesday for removal of wound vac. Demonstrated to Geovanni how to reinforce wound vac dressing in the event a leak is detected. If leak not able to be resolved, just keep wound vac dressing on and keep portable machine on. 2) Discharged on Rx of Kelfex while surgical cultures pending. 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 Rx sent to [facility]. 4) Methadone Rx for pain (home Rx)
[2019-08-17] MEDS ORDERED: Oxybutynin 5 MG Tab PO SCH (18:00)
[2019-08-17] MEDS ORDERED: Vancomycin 125 MG Cap PO SCH (21:00)
== END 2019-08-17 10:15 | disposition home or self-care (01) ==
LOC: MW.SDS 06:34 → MW.MS 11:32 → MW.SDS 08-17 10:15
PROVIDERS: ATTEND Orthopaedic Surgery
DX: T87.44 Infection of amputation stump, left lower extremity (principal); M86.9 Osteomyelitis, unspecified; L97.829 Non-pressure chronic ulcer of other part of left lower leg with unspecified severity; M85.862 Other specified disorders of bone density and structure, left lower leg; G47.30 Sleep apnea, unspecified; F41.9 Anxiety disorder, unspecified; F32.9 Major depressive disorder, single episode, unspecified; I95.9 Hypotension, unspecified; G82.20 Paraplegia, unspecified; F17.210 Nicotine dependence, cigarettes, uncomplicated; Z79.899 Other long term (current) drug therapy; Z89.512 Acquired absence of left leg below knee; Z88.5 Allergy status to narcotic agent; Z88.8 Allergy status to other drugs, medicaments and biological substances
CPT/HCPCS: 27886; 36415; 85014; 85018; A9270; J0690; J2001; J2250; J3370; J3490; J7030; J7120; 01482; 88305; 88311; J0360; J2405; J2704; J3010

== ENCOUNTER 2020-03-03 11:48 | Emergency (ER) | payer MEDICARE, OTHER ==
[2020-03-03] MEDS ORDERED: Sodium Chloride 0.9% 1,000 ML IV ONE (12:25)
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
--- NOTE | 2020-03-03 13:15 | PCM.SN.2 ---
- Free Text/Narrative Note: 12-Lead ECG Interpretation Acquired: 1:06 PM Rhythm: Sinus rhythm Rate: 70 bpm [place]: Normal Intervals: Prolonged QT interval of 562 ms Ectopy: None RV Strain: No obvious RV strain pattern. ST Segments/T-Waves: ST depression in leads V1, V2. T wave inversions in V2 and V3. Acute Ischemic Changes: None apparent Interpretation: No STEMI. Severely prolonged QT interval. New ST segment depression in V1. Previously demonstrated ST depression in V2 persists. Previously demonstrated ST depression in V3 through 5 on most recent ECG has resolved.
[2020-03-03 13:30] LABS: BLOOD UREA NITROGEN,BUN 14 mg/dL (7.0-18.0); CARBON DIOXIDE,CO2 32.5 mmol/L (21.0-32.0); CHLORIDE,CL 99 mmol/L (98-107); GLUCOSE RANDOM 114 mg/dL (74-106); LIPASE 57 U/L (73-393); POTASSIUM,K 3.9 mmol/L (3.5-5.1); SODIUM,NA 139 mmol/L (136-148)
[2020-03-03] MEDS ORDERED: Magnesium Sulfate/Water 4 GM in Premix Bag 1 BAG IV ONE (13:35)
[2020-03-03] MEDS ORDERED: Morphine 2 MG/ML SYRINGE IVPUSH ONE (13:37)
[2020-03-03] MEDS ORDERED: Prochlorperazine 10 MG/2 ML SDV IVPUSH ONE (13:38)
[2020-03-03 13:40] VITALS: BP 121/78; PULSE 72
--- NOTE | 2020-03-03 14:04 | CR ---
INDICATION: Pain TECHNIQUE: Single view chest. FINDINGS: The lungs are clear. The heart, mediastinum and pulmonary vessels are of normal size. There is no evidence of pleural disease. IMPRESSION: Negative chest. Dictated by Mandi Jacobo MD @ Mar 03 2020 2:02PM Signed by Dr. Mandi Jacobo @ Mar 03 2020 2:02PM
--- NOTE | 2020-03-03 14:06 | CR ---
INDICATION: Draining ulcer. TECHNIQUE: Three views of the left knee. COMPARISON: 02/06/2020. IMPRESSION: There is diffusely decreased bone density. The stump was not included in the field of view. No periosteal reaction or gerardo bony destruction is seen to suggest osteomyelitis. Dictated by Dc De La O MD @ 03/03/2020 2:04:32 PM Dictated by: Dc De La O MD @ 03/03/2020 14:04:52 (Electronically Signed)
[2020-03-03] MEDS ORDERED: Iopamidol 755 MG/ML 500 ML Multipack Bottle IVPUSH ONE (14:33)
--- NOTE | 2020-03-03 15:07 | CT ---
INDICATION: Pt w/infection on rt side of neck. Pt is paraplegic. TECHNIQUE: CT of the neck with 100 cc Isovue 370 iodinated contrast agent. Coronal and sagittal reconstructions are included. COMPARISON: None FINDINGS: There is no mass or other lesion within the soft tissues of the suprahyoid or infrahyoid neck. There is focal skin thickening and fat stranding in the right submandibular subcutaneous fat that may represent cellulitis. No drainable fluid collection or abscess is identified. No lymphadenopathy. The oral cavity, nasopharyngeal, oropharyngeal and hypopharyngeal mucosal spaces are normal. The supraglottic, glottic and infraglottic larynx are normal. The airway including the trachea is normal and is patent. The parotid glands, submandibular and sublingual glands are normal in appearance. The thyroid gland is normal in appearance. The vascular structures opacify normally with contrast material. No suspicious lytic or blastic osseous lesions. Mature interbody fusion of the entire cervical spine. No periapical dental disease. Visualized paranasal sinuses and mastoid air cells are clear. Visualized orbital and intracranial contents are normal. Supraclavicular regions, mediastinum and soft tissues of the imaged chest wall are normal. Visualized portions of the upper lungs are clear. IMPRESSION: 1. There is focal skin thickening and fat stranding in the right submandibular subcutaneous fat that may represent cellulitis. No drainable fluid collection or abscess is identified. 2. The salivary glands are unremarkable. 3. Mild prominence of a few cervical lymph nodes likely reactive in etiology. No pathologic lymph nodes. Please note that all CT scans at this facility use dose modulation, iterative reconstruction, and/or weight-based dosing when appropriate to reduce radiation dose to as low as reasonably achievable. Dictated by Miky Chaney MD @ Mar 03 2020 2:57PM Signed by Dr. Miky Chaney @ Mar 03 2020 3:05PM
--- NOTE | 2020-03-03 15:15 | CR ---
Indication: Left lower leg. Technique: Two views of the left lower leg were obtained. Comparison: CT scan of the lower leg dated December 26, 2019. Findings: A [id number] amputation is identified. No definite bony erosions are identified. Questionable air is identified within the distal soft tissues. On the lateral view, slight irregularity of the distal aspect of the tibia is identified, uncertain significance. Impression: Irregularity of the distal tibia, of uncertain significance. Questionable air identified within the soft tissues. Dictated by Kathie Aldridge MD @ Mar 03 2020 3:11PM Signed by Dr. Kathie Aldridge @ Mar 03 2020 3:14PM
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
--- NOTE | 2020-03-03 15:23 | CT ---
HISTORY: Abdominal distention. Pain around colostomy. Paraplegia. TECHNIQUE: CT abdomen and pelvis with IV contrast. COMPARISON: CT abdomen and pelvis 04/11/2019. FINDINGS: Abdomen: Focal fatty infiltration of the liver and the falciform ligament. Mild intrahepatic bile duct dilation. Common duct is upper normal caliber. Cholelithiasis. No pancreatic mass or pancreatic duct dilation. No spleen lesions. No adrenal nodules. Kidneys enhance symmetrically. Few tiny hypodense lesions in the kidneys are too small to characterize but are likely cysts. No hydronephrosis. Small amount of high density material in the gastric antrum. Wall of the gastric antrum appears mildly thickened. Small amount of fluid between the distal stomach, gallbladder, and liver. Left lower quadrant end colostomy. Multiple fluid-filled mildly to moderately dilated loops of small bowel. Collapsed loops of distal small bowel in the right lower quadrant. Small amount of interloop fluid in the right lower quadrant. Appendix is normal. No dilated colon. Stool throughout the colon. No pneumoperitoneum. No lymphadenopathy. Abdominal aorta is normal caliber. Pelvis: Suprapubic bladder catheter. Bladder is decompressed. Unchanged soft tissue infiltration between the posterior rectum and the gluteal skin which may be from scarring. Musculoskeletal: Ischial decubitus wound or deformity from prior wound. Truncation of the posterior aspect of the right ischium consistent with debridement. No erosions. Degenerative changes of the spine and sacroiliac joints. Lower chest: Patchy ground-glass opacities in the right middle lobe. Minimal dependent atelectasis bilaterally. IMPRESSION: 1. Small-bowel obstruction with transition in the distal small bowel. 2. Small amount of high density material in the gastric antrum could be medication or other ingested material such as bone. Wall of the gastric antrum appears mildly thickened which may be due to peristalsis or inflammation. Correlate with ingestion history and upper abdominal pain. 3. Cholelithiasis. Mild intrahepatic bile duct dilation without significant extrahepatic bile duct dilation. Small amount of fluid between the distal stomach, gallbladder, and liver may be related to small bowel obstruction or distal gastric inflammation. Acute cholecystitis should also be considered although the gallbladder is not significantly distended. 4. Ground-glass opacities in the right middle lobe are likely infectious or inflammatory. Please note that all CT scans at this facility use dose modulation, iterative reconstruction, and/or weight-based dosing when appropriate to reduce radiation dose to as low as reasonably achievable. Dictated by Jony Tillman MD @ Mar 03 2020 3:22PM Signed by Dr. Jony Tillman @ Mar 03 2020 3:22PM
== END 2020-03-03 16:41 | disposition left against medical advice (07) ==
LOC: MW.ED 11:48
DX: K56.609 Unspecified intestinal obstruction, unspecified as to partial versus complete obstruction (principal); L97.929 Non-pressure chronic ulcer of unspecified part of left lower leg with unspecified severity; L03.221 Cellulitis of neck; R94.31 Abnormal electrocardiogram [ECG] [EKG]; S80.212A Abrasion, left knee, initial encounter; F41.9 Anxiety disorder, unspecified; F32.9 Major depressive disorder, single episode, unspecified; G43.909 Migraine, unspecified, not intractable, without status migrainosus; Z20.828 Contact with and (suspected) exposure to other viral communicable diseases; Z88.5 Allergy status to narcotic agent; Z79.899 Other long term (current) drug therapy
CPT/HCPCS: 70491; 71045; 73562; 73590; 74177; 80053; 81001; 83605; 83690; 83735; 84484; 85025; 85652; 86140; 87040; 87077; 87086; 87088; 87186; 93005; 96365; 96366; 96375; 99284; J0780; J3475; J7030; Q9967; U0002

== ENCOUNTER 2020-12-28 19:54 | Emergency (ER) | payer MEDICARE, OTHER ==
[2020-12-28 20:57] VITALS: BP 120/59; PULSE 59
[2020-12-28] MEDS ORDERED: Sodium Chloride 0.9% 10 ML Syringe FLUSH PRN (21:13)
[2020-12-28] MEDS ORDERED: HYDROmorphone 1 MG/ML Syringe IVPUSH ONE (21:13)
[2020-12-28] MEDS ORDERED: Ondansetron 4 MG/2 ML SDV IVPUSH ONE (21:13)
[2020-12-28] MEDS ORDERED: Sodium Chloride 0.9% 2.5 ML Syringe FLUSH PRN (21:13)
[2020-12-28] MEDS ORDERED: Sodium Chloride 0.9% 1,000 ML IV ONE (21:14)
[2020-12-28] MEDS ORDERED: Iopamidol 755 Mg/ML 100 ML Bottle IVPUSH ONE (21:28)
[2020-12-28 21:30] LABS: CARBON DIOXIDE,CO2 30.4 mmol/L (21.0-32.0); POTASSIUM,K 5.3 mmol/L (3.5-5.1)
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
[2020-12-28] MEDS ORDERED: HYDROmorphone 2 MG/ML Syringe IVPUSH STA (23:07)
--- NOTE | 2020-12-29 00:22 | CT ---
INDICATION: Abdominal pain. CT ABDOMEN AND PELVIS WITH CONTRAST TECHNIQUE: Multidetector CT imaging was performed through the abdomen and pelvis following intravenous contrast administration using 100 mL Isovue 370. Coronal and sagittal reconstructions were generated. COMPARISON: 03/03/2020 CT abdomen and pelvis. FINDINGS: Lower chest: Bibasilar lung stranding consistent with atelectasis. Liver: Mild hepatomegaly. No focal liver lesion identified. Gallbladder and bile ducts: No gallbladder wall thickening or calcified gallstones. No biliary dilation identified. Pancreas: Unremarkable. Spleen: Normal. Adrenals: No nodules or masses. Kidneys, ureters, and urinary bladder: Very small nonobstructing right intrarenal stone. No hydronephrosis involving either kidney. Suprapubic Keith catheter extending into the urinary bladder, which is collapsed. Gastrointestinal tract and abdominal wall: Normal caliber small bowel without wall thickening or obstruction. The appendix is normal. 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 Unchanged fat-containing right inguinal hernia. Vascular structures: Normal for age. Peritoneum: No free air, abscess, or significant free fluid. Lymph nodes: No pathologically enlarged nodes identified. Reproductive organs: No pelvic masses. Bones: Diffuse osseous demineralization. Spinal degenerative changes. Healed fractures of the right pubic rami. Subcutaneous soft tissue density inferior to the coccyx may represent decubitus ulceration or scarring from healed decubitus ulceration, similar to the previous exam. IMPRESSION: 1. No acute abnormality identified. No cause for the patient`s symptoms is demonstrated. 2. Multiple nonacute findings as detailed above. GERBER CHAIDEZ MD [facility] Dictated by Juwan Chaidez MD @ 12/29/2020 12:17:51 AM Please note that all CT scans at this facility use dose modulation, iterative reconstruction, and/or weight-based dosing when appropriate to reduce radiation dose to as low as reasonably achievable. Dictated by: Juwan Chaidez MD @ 12/29/2020 00:20:49 (Electronically Signed)
--- NOTE | 2020-12-29 05:41 | PCM.EKG ---
#1 Interpretation EKG Date: 12/28/20 Time: 23:52 Rhythm: NSR Rate (Beats/Min): 60 [place]: Normal P-Wave: Present QRS: Normal ST-T: Normal (T wave inversion V2-V3 unchanged) QT: Normal Comparison: No Change (03/03/20) EKG Interpretation Comments: Sinus Rhythm with unchanged TWI
== END 2020-12-29 02:05 | disposition home or self-care (01) ==
LOC: MW.ED 19:54
DX: R10.33 Periumbilical pain (principal); Z88.5 Allergy status to narcotic agent
CPT/HCPCS: 36415; 74177; 80053; 85025; 93005; 96374; 96375; 99284; J1170; J2405; J7030; Q9967

== ENCOUNTER 2022-09-29 12:00 | Emergency (ER) | payer MEDICARE, OTHER ==
[2022-09-29] MEDS ORDERED: Sodium Chloride 0.9% 10 ML Syringe FLUSH PRN (12:07)
[2022-09-29] MEDS ORDERED: Sodium Chloride 0.9% 2.5 ML Syringe FLUSH PRN (12:07)
[2022-09-29] MEDS ORDERED: oxyCODONE 5 MG Tab PO STA (12:39)
[2022-09-29 12:40] LABS: HEMATOCRIT 44.9 % (38.0-50.0); HEMOGLOBIN 14.6 g/dL (13.0-17.0); MEAN CORPUSCULAR HEMOGLOBIN 29.7 pg (27.0-32.0); MEAN CORPUSCULAR HGB CONC 32.5 g/dL (31.0-37.0); MEAN CORPUSCULAR VOLUME 91.3 fL (80.0-98.0); PLATELET COUNT,PLT 222 K/uL (150-400); RED BLOOD CELL COUNT 4.92 M/uL (4.50-5.90); WHITE BLOOD CELL COUNT,WBC 11.26 K/uL (4.0-11.0)
[2022-09-29 12:49] LABS: CALCIUM 8.6 mg/dL (8.5-10.1); CARBON DIOXIDE,CO2 29.8 mmol/L (21.0-32.0); CREATININE 0.8 mg/dL (0.8-1.3); EST CRCL DRUG DOSING (CG) 105.56 mL/min; POTASSIUM,K 4.7 mmol/L (3.5-5.1)
[2022-09-29] MEDS ORDERED: Iopamidol 755 MG/ML 500 ML Multipack Bottle IVPUSH ONE (13:37)
[2022-09-29 13:46] VITALS: BP 150/63; PULSE 66
[2022-09-29 13:50] LABS: EOSINOPHILS ABSOLUTE MAN 0.1 (0.0-0.7); EOSINOPHILS PERCENT MAN 1 % (0.0-7.0); LYMPHOCYTES ABSOLUTE MAN 1.1 (0.6-2.4); LYMPHOCYTES PERCENT MAN 10 % (16.0-40.0); MONOCYTES ABSOLUTE MAN 0.6 (0.0-0.8); MONOCYTES PERCENT MAN 5 % (0.0-15.0); SEG NEUTROPHILS ABSOLUTE MAN 9.5 (1.4-5.7); SEG NEUTROPHILS PERCENT MAN 84 % (48.0-80.0)
== END 2022-09-29 14:26 | disposition home or self-care (01) ==
LOC: MW.ED 12:00
DX: R10.84 Generalized abdominal pain (principal); R10.12 Left upper quadrant pain; S81.012A Laceration without foreign body, left knee, initial encounter; S81.011A Laceration without foreign body, right knee, initial encounter; S41.112A Laceration without foreign body of left upper arm, initial encounter; S61.411A Laceration without foreign body of right hand, initial encounter; Z88.5 Allergy status to narcotic agent; W10.1XXA Fall (on)(from) sidewalk curb, initial encounter
CPT/HCPCS: 36415; 70450; 74177; 80048; 85025; 99284; A9270; J3490; Q9967

== ENCOUNTER 2022-10-28 09:23 | Observation (INO) | payer MEDICARE, OTHER ==
[2022-10-28] MEDS ORDERED: Sodium Chloride 0.9% 1,000 ML IV ONE (10:23)
[2022-10-28] MEDS ORDERED: Sodium Chloride 0.9% 10 ML Syringe FLUSH PRN ×2 (10:23→14:16)
[2022-10-28] MEDS: Sodium Chloride 0.9% 2.5 ML Syringe FLUSH PRN ×2 (10:40→10:41)
[2022-10-28 10:44] LABS: BASOPHILS PERCENT AUTO 0.3 % (0.0-1.5); EOSINOPHILS ABSOLUTE AUTO 0.3 K/uL (0.0-0.7); EOSINOPHILS PERCENT AUTO 4.3 % (0.0-7.0); HEMATOCRIT 27.9 % (38.0-50.0); HEMOGLOBIN 8.5 g/dL (13.0-17.0); LYMPHOCYTES ABSOLUTE AUTO 1.4 K/uL (0.6-2.4); LYMPHOCYTES PERCENT AUTO 21.4 % (16.0-40.0); MEAN CORPUSCULAR HEMOGLOBIN 29.9 pg (27.0-32.0); MEAN CORPUSCULAR HGB CONC 30.5 g/dL (31.0-37.0); MEAN CORPUSCULAR VOLUME 98.2 fL (80.0-98.0); MONOCYTES ABSOLUTE AUTO 0.7 K/uL (0.0-0.8); MONOCYTES PERCENT AUTO 10.5 % (0.0-15.0); NEUTROPHILS ABSOLUTE AUTO 4.3 K/uL (1.4-5.7); NEUTROPHILS PERCENT AUTO 63.5 % (48.0-80.0); PLATELET COUNT,PLT 265 K/uL (150-400); RED BLOOD CELL COUNT 2.84 M/uL (4.50-5.90); WHITE BLOOD CELL COUNT,WBC 6.74 K/uL (4.0-11.0)
[2022-10-28 11:05] LABS: A/G RATIO 0.8 (0.9-1.6); ALANINE AMINOTRANSFERASE,ALT 26 IU/L (14-63); ALBUMIN 2.7 g/dL (3.4-5.0); ALKALINE PHOSPHATASE 79 U/L (46-116); ASPARTATE AMNIOTRANSFERASE,AST 25 IU/L (15-37); BILIRUBIN TOTAL 0.4 mg/dL (0.2-1.0); BLOOD UREA NITROGEN,BUN 8 mg/dL (7.0-18.0); CHLORIDE,CL 101 mmol/L (98-107); CREATININE 0.9 mg/dL (0.8-1.3); GLUCOSE RANDOM 84 mg/dL (74-106); POTASSIUM,K 4.3 mmol/L (3.5-5.1); PROTEIN TOTAL,TP 5.9 g/dL (6.4-8.2); SODIUM,NA 137 mmol/L (136-148)
[2022-10-28 11:06] LABS: ESTIMATED GFR 101 mL/min (>60)
[2022-10-28] MEDS ORDERED: Iopamidol 755 MG/ML 500 ML Multipack Bottle IVPUSH ONE (11:41)
[2022-10-28 12:08] LABS: APPEARANCE,URINE CLEAR; BILIRUBIN,URINE NEGATIVE (NEGATIVE); COLOR,URINE YELLOW; GLUCOSE,URINE NEGATIVE (NEGATIVE); KETONES,URINE 15 mg/dL (NEGATIVE); LEUKOCYTE ESTERASE,URINE NEGATIVE (NEGATIVE); NITRITE,URINE POSITIVE (NEGATIVE); OCCULT BLOOD,URINE NEGATIVE (NEGATIVE); PH,URINE 6.5 (5.0-8.0); PROTEIN,URINE NEGATIVE (NEGATIVE); UROBILINOGEN,URINE 0.2 EU/dL (<2.0)
[2022-10-28 12:23] LABS: BACTERIA,URINE RARE (NEGATIVE); EPITHELIAL CELLS,URINE NOT SEEN (NONE-FEW); RBC,URINE NONE SEEN (0-2/HPF); WBC,URINE NONE SEEN (0-5/HPF)
[2022-10-28] MEDS ORDERED: Sodium Chloride 0.9% 2.5 ML Syringe FLUSH PRN (14:16)
[2022-10-28] MEDS ORDERED: Acetaminophen 325 MG Tab PO PRN (14:16)
[2022-10-28] MEDS ORDERED: Ondansetron 4 MG/2 ML SDV IVPUSH PRN (14:16)
[2022-10-28 15:04] LABS: BILIRUBIN DIRECT 0.1 mg/dL (0.0-0.5); BILIRUBIN INDIRECT 0.3; BILIRUBIN TOTAL 0.4 mg/dL (0.2-1.0)
[2022-10-28 15:19] LABS: PERCENT FE SATURATION 14.47 % (20-55); TRANSFERRIN 164.5
[2022-10-28 15:31] LABS: FOLIC ACID 5.4 ng/mL (8.60-58.90)
[2022-10-28 16:44] LABS: RED BLOOD CELL COUNT 3.12 M/uL (4.50-5.90); RETICULOCYTE ABSOLUTE 224.3 K/uL (20-80); RETICULOCYTE COUNT PERCENT 7.2 % (0.5-1.5)
[2022-10-28] MEDS: Pantoprazole 40 MG in Sodium Chloride 0.9% 10 ML IVPUSH SCH (18:20)
[2022-10-28 22:46] LABS: HEMATOCRIT 32.7 % (38.0-50.0); HEMOGLOBIN 10.3 g/dL (13.0-17.0)
[2022-10-28] MEDS ORDERED: SUMAtriptan 6 MG/0.5 ML SDV SUBCUT PRN (23:48)
[2022-10-29] MEDS ORDERED: Methadone 10 MG Tab PO SCH ×2 (06:00→08:00)
[2022-10-29] MEDS ORDERED: Gabapentin 300 MG Cap PO SCH ×2 (06:00→08:00)
[2022-10-29] MEDS ORDERED: Dicyclomine 10 MG Cap PO SCH ×3 (06:00→14:00)
[2022-10-29] MEDS ORDERED: Baclofen 10 MG Tab PO SCH ×2 (06:00→08:00)
[2022-10-29 06:04] LABS: BASOPHILS PERCENT AUTO 0.2 % (0.0-1.5); EOSINOPHILS ABSOLUTE AUTO 0.3 K/uL (0.0-0.7); EOSINOPHILS PERCENT AUTO 5.6 % (0.0-7.0); HEMATOCRIT 32.5 % (38.0-50.0); LYMPHOCYTES ABSOLUTE AUTO 1.6 K/uL (0.6-2.4); LYMPHOCYTES PERCENT AUTO 31.6 % (16.0-40.0); MEAN CORPUSCULAR HEMOGLOBIN 28.6 pg (27.0-32.0); MEAN CORPUSCULAR HGB CONC 30.8 g/dL (31.0-37.0); MEAN CORPUSCULAR VOLUME 92.9 fL (80.0-98.0); MONOCYTES ABSOLUTE AUTO 0.6 K/uL (0.0-0.8); NEUTROPHILS ABSOLUTE AUTO 2.6 K/uL (1.4-5.7); NEUTROPHILS PERCENT AUTO 50.6 % (48.0-80.0); NRBC ABSOLUTE 0 K/uL; PLATELET COUNT,PLT 255 K/uL (150-400); WHITE BLOOD CELL COUNT,WBC 5.16 K/uL (4.0-11.0)
[2022-10-29] MEDS: Pantoprazole 40 MG in Sodium Chloride 0.9% 10 ML IVPUSH SCH ×2 (06:05→06:57)
[2022-10-29 07:01] LABS: CALCIUM 8.1 mg/dL (8.5-10.1); CARBON DIOXIDE,CO2 31.2 mmol/L (21.0-32.0); CREATININE 0.8 mg/dL (0.8-1.3); EST CRCL DRUG DOSING (CG) 105.56 mL/min; POTASSIUM,K 3.8 mmol/L (3.5-5.1)
[2022-10-29] MEDS ORDERED: DULoxetine 60 MG Cap PO SCH ×2 (08:00→09:00)
[2022-10-29] MEDS ORDERED: Oxybutynin 5 MG Tab PO SCH (08:00)
[2022-10-29] MEDS ORDERED: Magnesium Oxide 400 MG Tab PO SCH (08:00)
[2022-10-29 11:41] VITALS: BP 82/54; PULSE 80
[2022-10-30 11:07] LABS: HYPOCHRO 2+ /hpf; NEUTROPHILS% 55 %
== END 2022-10-29 10:50 | disposition home or self-care (01) ==
LOC: MW.ED 09:23 → MW.MS 13:45
PROVIDERS: ADMIT Internal Medicine; ATTEND Internal Medicine
DX: D64.9 Anemia, unspecified (principal); R53.1 Weakness; R06.02 Shortness of breath; E66.9 Obesity, unspecified; M86.9 Osteomyelitis, unspecified; G44.009 Cluster headache syndrome, unspecified, not intractable; I10 Essential (primary) hypertension; I26.99 Other pulmonary embolism without acute cor pulmonale; G47.30 Sleep apnea, unspecified; S24.102D Unspecified injury at T2-T6 level of thoracic spinal cord, subsequent encounter; J98.4 Other disorders of lung; R06.00 Dyspnea, unspecified; J98.11 Atelectasis; G89.21 Chronic pain due to trauma; F41.9 Anxiety disorder, unspecified; F32.A Depression, unspecified; Z96.659 Presence of unspecified artificial knee joint; Z88.5 Allergy status to narcotic agent; Z79.899 Other long term (current) drug therapy; Z86.711 Personal history of pulmonary embolism; G82.20 Paraplegia, unspecified; Z93.59 Other cystostomy status; Z99.3 Dependence on wheelchair
CPT/HCPCS: 36415; 36430; 71275; 80048; 80053; 81001; 82247; 82248; 82607; 82728; 82746; 83010; 83550; 83615; 83735; 84484; 85014; 85018; 85025; 85045; 86850; 86900; 86901; 86920; 93005; 93971; 96361; 96374; 96375; 99285; A9270; C9113; G0378; J2405; J3490; J7030; P9016; Q9967; 96360; 99222; 99238

== ENCOUNTER 2023-02-10 05:19 | Emergency (ER) | payer MEDICARE, OTHER ==
[2023-02-10] MEDS ORDERED: HYDROmorphone 1 MG/ML Syringe IVPUSH ONE (06:15)
[2023-02-10] MEDS ORDERED: Ondansetron 4 MG/2 ML SDV IVPUSH ONE (06:15)
[2023-02-10] MEDS ORDERED: Sodium Chloride 0.9% 1,000 ML IV ONE (06:20)
[2023-02-10 06:25] LABS: BASOPHILS PERCENT AUTO 0.1 % (0.0-1.5); EOSINOPHILS ABSOLUTE AUTO 0.1 K/uL (0.0-0.7); EOSINOPHILS PERCENT AUTO 0.4 % (0.0-7.0); HEMATOCRIT 42.1 % (38.0-50.0); HEMOGLOBIN 13.8 g/dL (13.0-17.0); LYMPHOCYTES ABSOLUTE AUTO 0.9 K/uL (0.6-2.4); LYMPHOCYTES PERCENT AUTO 7.5 % (16.0-40.0); MEAN CORPUSCULAR HEMOGLOBIN 28.1 pg (27.0-32.0); MEAN CORPUSCULAR HGB CONC 32.8 g/dL (31.0-37.0); MEAN CORPUSCULAR VOLUME 85.7 fL (80.0-98.0); MONOCYTES PERCENT AUTO 8.1 % (0.0-15.0); NEUTROPHILS ABSOLUTE AUTO 9.9 K/uL (1.4-5.7); NEUTROPHILS PERCENT AUTO 83.9 % (48.0-80.0); NRBC ABSOLUTE 0 K/uL; PLATELET COUNT,PLT 271 K/uL (150-400); RED BLOOD CELL COUNT 4.91 M/uL (4.50-5.90); WHITE BLOOD CELL COUNT,WBC 11.84 K/uL (4.0-11.0)
[2023-02-10 06:47] LABS: A/G RATIO 0.9 (0.9-1.6); ALBUMIN 3.5 g/dL (3.4-5.0); BILIRUBIN TOTAL 0.5 mg/dL (0.2-1.0); CALCIUM 9.2 mg/dL (8.5-10.1); CARBON DIOXIDE,CO2 33.2 mmol/L (21.0-32.0); CREATININE 1.1 mg/dL (0.8-1.3); EST CRCL DRUG DOSING (CG) 76.77 mL/min; POTASSIUM,K 3.7 mmol/L (3.5-5.1); PROTEIN TOTAL,TP 7.5 g/dL (6.4-8.2)
[2023-02-10] MEDS ORDERED: Iopamidol 755 MG/ML 500 ML Multipack Bottle IVPUSH STA (07:14)
[2023-02-10] MEDS ORDERED: Ketorolac 30 MG/ML SDV IVPUSH ONE (07:26)
[2023-02-10] MEDS ORDERED: Metoclopramide 10 MG/2 ML SDV IVPUSH ONE (07:31)
[2023-02-10] MEDS ORDERED: diphenhydrAMINE 50 MG/ML SDV IVPUSH ONE (07:31)
[2023-02-10 10:15] VITALS: BP 92/48; PULSE 69
== END 2023-02-10 10:55 | disposition left against medical advice (07) ==
LOC: MW.ED 05:19
DX: K56.699 Other intestinal obstruction unspecified as to partial versus complete obstruction (principal); Z88.5 Allergy status to narcotic agent
CPT/HCPCS: 36415; 72131; 72131-26; 74177; 74177-26; 80053; 83690; 85025; 96374; 96375; 99284; 99284-25; J1170; J1200; J1885; J2405; J2765; J7030

== ENCOUNTER 2023-02-10 16:37 | Emergency (ER) | payer MEDICARE, OTHER ==
[2023-02-10] MEDS ORDERED: Sodium Chloride 0.9% 1,000 ML IV ONE (17:07)
[2023-02-10] MEDS ORDERED: HYDROmorphone 1 MG/ML Syringe IVPUSH ONE ×2 (17:13→19:25)
[2023-02-10] MEDS ORDERED: Ondansetron 4 MG/2 ML SDV IVPUSH ONE (17:13)
[2023-02-10] MEDS ORDERED: diphenhydrAMINE 50 MG/ML SDV IVPUSH ONE (17:30)
[2023-02-10] MEDS ORDERED: Metoclopramide 10 MG/2 ML SDV IVPUSH ONE (17:30)
[2023-02-10 19:22] LABS: BASOPHILS PERCENT AUTO 0.1 % (0.0-1.5); EOSINOPHILS PERCENT AUTO 0.1 % (0.0-7.0); HEMATOCRIT 37.3 % (38.0-50.0); LYMPHOCYTES ABSOLUTE AUTO 0.8 K/uL (0.6-2.4); LYMPHOCYTES PERCENT AUTO 6.9 % (16.0-40.0); MEAN CORPUSCULAR HGB CONC 32.2 g/dL (31.0-37.0); MEAN CORPUSCULAR VOLUME 87.1 fL (80.0-98.0); MONOCYTES ABSOLUTE AUTO 0.7 K/uL (0.0-0.8); MONOCYTES PERCENT AUTO 6.5 % (0.0-15.0); NEUTROPHILS ABSOLUTE AUTO 9.7 K/uL (1.4-5.7); NEUTROPHILS PERCENT AUTO 86.4 % (48.0-80.0); NRBC ABSOLUTE 0 K/uL; PLATELET COUNT,PLT 230 K/uL (150-400); RED BLOOD CELL COUNT 4.28 M/uL (4.50-5.90); WHITE BLOOD CELL COUNT,WBC 11.17 K/uL (4.0-11.0)
[2023-02-10] MEDS ORDERED: Naloxone 0.4 MG/ML SDV IVPUSH PRN (19:25)
[2023-02-10 19:59] LABS: A/G RATIO 0.8 (0.9-1.6); BILIRUBIN TOTAL 0.6 mg/dL (0.2-1.0); CALCIUM 8.4 mg/dL (8.5-10.1); CARBON DIOXIDE,CO2 31.2 mmol/L (21.0-32.0); CREATININE 1.2 mg/dL (0.8-1.3); EST CRCL DRUG DOSING (CG) 52.06 mL/min; PROTEIN TOTAL,TP 6.7 g/dL (6.4-8.2)
[2023-02-10 20:01] LABS: LACTIC ACID 2.9 mmol/L (0.4-2.0)
[2023-02-11 02:59] VITALS: BP 121/60; PULSE 78
== END 2023-02-10 21:56 ==
LOC: MW.ED 16:37
DX: K56.609 Unspecified intestinal obstruction, unspecified as to partial versus complete obstruction (principal); Z86.718 Personal history of other venous thrombosis and embolism; Z79.899 Other long term (current) drug therapy; Z88.5 Allergy status to narcotic agent
CPT/HCPCS: 36415; 80053; 83605; 85025; 96361; 96374; 96375; 99285; J1170; J1200; J2765; J7030

== ENCOUNTER 2023-02-26 14:58 | Emergency (ER) | payer MEDICARE, OTHER ==
[2023-02-26 16:17] VITALS: BP 163/117; PULSE 65
[2023-02-26] MEDS ORDERED: Amoxicillin/Clavulanate K 875-125 MG Tab PO ONE (16:26)
== END 2023-02-26 16:46 | disposition home or self-care (01) ==
LOC: MW.ED 14:58
DX: H66.001 Acute suppurative otitis media without spontaneous rupture of ear drum, right ear (principal); I10 Essential (primary) hypertension; Z79.899 Other long term (current) drug therapy; Z88.5 Allergy status to narcotic agent
CPT/HCPCS: 99282; 99283

== ENCOUNTER 2024-12-01 20:23 | Emergency (ER) | payer MEDICARE, OTHER ==
[2024-12-01 20:57] LABS: GLUCOSE,URINE NEGATIVE (NEGATIVE); OCCULT BLOOD,URINE LARGE (NEGATIVE)
[2024-12-01] MEDS: Ondansetron 4 MG Tab.DIS PO ONE (21:04)
[2024-12-01 21:10] LABS: APPEARANCE,URINE CLOUDY
[2024-12-01 21:13] LABS: EPITHELIAL CELLS,URINE OCCASIONAL (NONE-FEW)
[2024-12-01 21:19] LABS: BASOPHILS ABSOLUTE AUTO 0.00 K/uL (0.00-0.20); BASOPHILS PERCENT AUTO 0.0 % (0.0-1.0); EOSINOPHILS ABSOLUTE AUTO 0.04 K/uL (0.00-0.45); EOSINOPHILS PERCENT AUTO 1.3 % (0.0-6.0); IMMATURE GRAN ABSOLUTE AUTO 0.01 K/uL (0.00-0.05); IMMATURE GRAN PERCENT AUTO 0.3 % (0.0-0.4); LYMPHOCYTES ABSOLUTE AUTO 0.38 K/uL (1.00-4.80); LYMPHOCYTES PERCENT AUTO 12.5 % (24.0-44.0); MEAN PLATELET VOLUME 8.2 fL (9.4-12.4); MONOCYTES ABSOLUTE AUTO 0.00 K/uL (0.00-0.80); MONOCYTES PERCENT AUTO 0.0 % (0.0-8.0); NEUTROPHILS ABSOLUTE AUTO 2.61 K/uL (1.80-7.70); NEUTROPHILS PERCENT AUTO 85.9 % (41.0-71.0); NRBC ABSOLUTE 0.00 K/uL (0.00-0.02); NRBC PERCENT 0.0 /100WBC (0.0-0.2); PLATELET COUNT,PLT 162 K/uL (150-400); RED BLOOD CELL COUNT 4.32 M/uL (4.52-5.90); WHITE BLOOD CELL COUNT,WBC 3.04 K/uL (3.9-11.3)
[2024-12-01 21:35] LABS: BLOOD UREA NITROGEN,BUN 12 mg/dL (7.0-18.0); CARBON DIOXIDE,CO2 29.7 mmol/L (21.0-32.0); CHLORIDE,CL 98 mmol/L (98-107); CREATININE 1.1 mg/dL (0.8-1.3); GLUCOSE RANDOM 96 mg/dL (74-106); POTASSIUM,K 4.2 mmol/L (3.5-5.1); SODIUM,NA 136 mmol/L (136-148)
[2024-12-01] MEDS: cefTRIAXone 2 GM in Water For Injection, Sterile 20 ML IVPUSH ONE (21:35)
[2024-12-01 21:36] LABS: ESTIMATED GFR 79 mL/min (>60)
[2024-12-01] MEDS: Ketorolac 30 MG/ML SDV IVPUSH ONE (22:06)
[2024-12-01] MEDS: SUMAtriptan 6 MG/0.5 ML SDV SUBCUT ONE (22:07)
[2024-12-01] MEDS: Prochlorperazine 10 MG/2 ML SDV IVPUSH ONE (22:07)
[2024-12-01] MEDS: diphenhydrAMINE 50 MG/ML SDV IVPUSH ONE (22:08)
[2024-12-02 05:18] VITALS: BP 102/69; PULSE 91
== END 2024-12-01 22:49 | disposition home or self-care (01) ==
LOC: MW.ED 20:23
DX: T83.83XA Hemorrhage due to genitourinary prosthetic devices, implants and grafts, initial encounter (principal); N39.0 Urinary tract infection, site not specified; N36.8 Other specified disorders of urethra; Z88.5 Allergy status to narcotic agent; Z88.8 Allergy status to other drugs, medicaments and biological substances; Z79.899 Other long term (current) drug therapy
CPT/HCPCS: 36415; 51705; 80048; 81001; 85025; 87086; 96361; 96372; 96374; 96375; 99283; A9270; J0696; J0780; J1200; J1885; J3030; J7030; 99284

== ENCOUNTER 2024-12-07 15:28 | Emergency (ER) | payer MEDICARE, OTHER ==
[2024-12-07 18:08] VITALS: BP 118/72; PULSE 64
== END 2024-12-07 18:55 | disposition home or self-care (01) ==
LOC: MW.ED 15:28
DX: T83.9XXA Unspecified complication of genitourinary prosthetic device, implant and graft, initial encounter (principal); Z88.8 Allergy status to other drugs, medicaments and biological substances; Z79.899 Other long term (current) drug therapy
CPT/HCPCS: 99283